=== PATIENT | male | born 1950 | race Caucasian/White ===

== ENCOUNTER 2016-12-28 14:32 | Inpatient (IN) | payer MEDICARE ==
[~2016-12-28] VITALS: Ht 177.8 cm; Wt 68.5 kg
[2016-12-28 14:54] VITALS: BP 125/87
[2016-12-28] MEDS ORDERED: MAG HYDROX/AL HYDROX/SIMETH 30 ML ORAL.SUSP PO PRN (15:00)
[2016-12-28] MEDS ORDERED: METHYL SALICYLATE/MENTHOL TOPICAL OINTMENT 29GM TUBE. TP PRN (15:00)
[2016-12-28] MEDS ORDERED: MAGNESIUM HYDROXIDE 2,400 MG/30 ML ORAL.SUSP. PO PRN (15:00)
[2016-12-28] MEDS ORDERED: THIA100T8 PO (15:50)
[2016-12-28] MEDS ORDERED: OLAN5TAB3 PO (15:50)
[2016-12-28] MEDS ORDERED: ZIPR20CA2 IM (15:50)
[2016-12-28] MEDS ORDERED: OLAN5TAB9 PO (15:50)
[2016-12-28] MEDS ORDERED: FOLI1TAB16 PO (15:50)
[2016-12-28] MEDS ORDERED: HYDR-2868 PO (15:50)
[2016-12-28] MEDS ORDERED: ASPI325T8 PO (15:50)
[2016-12-28 15:57] LABS: ALBUMIN 2.9 g/dL (3.4-5.0); ALBUMIN/GLOBULIN RATIO 0.7 (1.0-1.7); CREATININE 1.2 mg/dL (0.7-1.3); GFR 60.8; POTASSIUM 4.2 mmol/L (3.5-5.1); TOTAL BILIRUBIN 0.4 mg/dL (0.2-1.0); TOTAL PROTEIN 6.9 g/dL (6.4-8.2)
[2016-12-28] MEDS: NICOTINE 21MG PATCH. TD SCH (16:00)
[2016-12-28 16:07] LABS: BASO # 0.1 x10^3/uL (0.0-0.2); BASO % 1 % (0-3); EOS # 0.1 x10^3/uL (0.0-0.7); EOS % 1 % (0-3); HEMATOCRIT 43.7 % (39.0-53.0); LYMPH # 1.6 x10^3/uL (1.0-4.8); LYMPH % 18 % (24-48); MEAN CORPUSCULAR HEMOGLOBIN 34 pg (25-35); MEAN CORPUSCULAR HGB CONC 34 g/dL (31-37); MEAN CORPUSCULAR VOLUME 100 fL (79-100); MONO # 0.9 x10^3/uL (0.0-1.1); MONO % 11 % (0-9); NEUT # 6.1 x10^3uL (1.8-7.7); NEUT % 69 % (31-73); PLATELET COUNT 211 x10^3/uL (140-400); RED BLOOD COUNT 4.39 x10^6/uL (4.30-5.70); RED CELL DISTRIBUTION WIDTH 14.4 % (11.5-14.5); WHITE BLOOD COUNT 8.8 x10^3/uL (4.0-11.0)
[2016-12-28 16:37] VITALS: BP 126/92
[2016-12-28] MEDS ORDERED: hydrALAZINE 25 MG TABLET PO PRN (18:15)
[2016-12-28] MEDS ORDERED: ASPIRIN 325 MG TABLET PO PRN (18:30)
[2016-12-28] MEDS: OLANZapine 5 MG TABLET PO SCH (20:01)
--- NOTE | 2016-12-28 20:02 | PDOC ---
Exam Faustino Demential Exam: Faustino Note: Please also refer to the separate dictated note~for this date of service dictated separately.~Patient seen individually. Discussed the patient with Nursing staff reviewed the chart.~Reviewed interim history and current functioning. Reviewed vital signs,~Labs/ Radiology~and current medications noted below. Continue current treatment with the changes noted in the dictated addendum note Assessment: Vital Signs: Vital Signs Date Time Temp Pulse Resp B/P (MAP) Pulse Ox O2 Delivery O2 Flow Rate FiO2 12/28/16 16:37 98.2 120 18 126/92 (103) 97 Labs: Laboratory Tests Test 12/28/16 15:25 White Blood Count 8.8 x10^3/uL (4.0-11.0) Red Blood Count 4.39 x10^6/uL (4.30-5.70) Hemoglobin 15.0 g/dL (13.0-17.5) Hematocrit 43.7 % (39.0-53.0) Mean Corpuscular Volume 100 fL (79-100) Mean Corpuscular Hemoglobin 34 pg (25-35) Mean Corpuscular Hemoglobin Concent 34 g/dL (31-37) Red Cell Distribution Width 14.4 % (11.5-14.5) Platelet Count 211 x10^3/uL (140-400) Neutrophils (%) (Auto) 69 % (31-73) Lymphocytes (%) (Auto) 18 % (24-48) L Monocytes (%) (Auto) 11 % (0-9) H Eosinophils (%) (Auto) 1 % (0-3) Basophils (%) (Auto) 1 % (0-3) Neutrophils # (Auto) 6.1 x10^3uL (1.8-7.7) Lymphocytes # (Auto) 1.6 x10^3/uL (1.0-4.8) Monocytes # (Auto) 0.9 x10^3/uL (0.0-1.1) Eosinophils # (Auto) 0.1 x10^3/uL (0.0-0.7) Basophils # (Auto) 0.1 x10^3/uL (0.0-0.2) Sodium Level 140 mmol/L (136-145) Potassium Level 4.2 mmol/L (3.5-5.1) Chloride Level 104 mmol/L (98-107) Carbon Dioxide Level 26 mmol/L (21-32) Anion Gap 10 (6-14) Blood Urea Nitrogen 18 mg/dL (8-26) Creatinine 1.2 mg/dL (0.7-1.3) Estimated GFR (Cockcroft-Gault) 60.8 BUN/Creatinine Ratio 15 (6-20) Glucose Level 123 mg/dL (70-99) H Calcium Level 9.0 mg/dL (8.5-10.1) Magnesium Level 2.0 mg/dL (1.8-2.4) Total Bilirubin 0.4 mg/dL (0.2-1.0) Aspartate Amino Transferase (AST) 33 U/L (15-37) Alanine Aminotransferase (ALT) 35 U/L (16-63) Alkaline Phosphatase 95 U/L (46-116) Total Protein 6.9 g/dL (6.4-8.2) Albumin 2.9 g/dL (3.4-5.0) L Albumin/Globulin Ratio 0.7 (1.0-1.7) L Current Medications: Meds: Current Medications Acetaminophen (Tylenol) 650 mg PRN Q6HRS PRN PO PAIN / TEMP; Start 12/28/16 at 15:00 Multi-Ingredient Ointment (Analgesic [place]) 1 tessy PRN QID PRN TP MUSCLE PAIN; Start 12/28/16 at 15:00 Al Hydroxide/Mg Hydroxide (Mylanta Plus Xs) 15 ml PRN AFTMEALHC PRN PO DYSPEPSIA; Start 12/28/16 at 15:00 Magnesium Hydroxide (Milk Of Magnesia) 2,400 mg PRN QHS PRN PO CONSTIPATION; Start 12/28/16 at 15:00 Nicotine (Nicoderm Cq 21mg) 1 patch DAILY TD ; Start 12/28/16 at 16:00 Aspirin (Ebenezer Aspirin) 325 mg PRN DAILY PRN PO PAIN; Start 12/28/16 at 18:30 Folic Acid (Folic Acid) 1 mg DAILY PO ; Start 12/29/16 at 09:00 Hydralazine HCl (Apresoline) 25 mg PRN Q6HRS PRN PO hypertension; Start at 18:15 Olanzapine (ZyPREXA) 2.5 mg TID PO ; Start 8/16/17 at 21:00 Olanzapine (ZyPREXA) 5 mg PRN Q8HRS PRN PO ANXIETY / AGITATION; Start 12/28/16 at 18:15 Thiamine HCl (Vitamin B-1) 100 mg DAILY PO ; Start 12/29/16 at 09:00 Divalproex Sodium (Depakote Sprinkles) 125 mg BID@0900,1400 PO ; Start 12/29/16 at 09:00 Active Scripts Active Reported Aspirin 325 Mg Tablet 325 Mg PO PRN DAILY PRN Thiamine Hcl 100 Mg Tablet 100 Mg PO DAILY Zyprexa (Olanzapine) 5 Mg Tablet 5 Mg PO PRN Q8HRS PRN Olanzapine 5 Mg Tablet 2.5 Mg PO TID Hydralazine Hcl 25 Mg Tablet 25 Mg PO PRN Q6HRS PRN Folic Acid 1 Mg Tablet 1 Mg PO DAILY Diagnosis: Problems: (1) Dementia associated with alcoholism HEMAL PICKETT MD Dec 28, 2016 20:02
--- NOTE | 2016-12-29 00:18 | HP ---
ADMIT DATE: 12/28/2016 This notes covers elements not covered in my initial note of 12/28/2016. The patient was seen individually evening of 12/28/2016 for this evaluation. IDENTIFYING DATA: The patient is a 66-year-old male who is referred to us from [facility] where the patient has been an inpatient on the medical/surgical floor and diagnosed with Wernicke-Korsakoff syndrome. He had completed alcohol detoxification, remained extremely confused, delusional with marked confabulation, agitation, aggression. He has been coming at staff, threatening people, having visual hallucinations. He has had to be placed on one-on-one status and at one point had to be restrained on different occasions. He was evaluated by psychiatrist at [facility], Dr. Rashid who recommended inpatient psychiatric stabilization before consideration of transition to a nursing facility. CHIEF COMPLAINT: "I came here yesterday. We are going there together when we are, we shall come." The patient was able to accurately relate his admission, though in fact he was admitted earlier today and not yesterday, but after that much of his conversation was extremely disorganized, difficult to follow." HISTORY OF PRESENT ILLNESS: The patient has a history of dementia consequent to alcohol and Wernicke-Korsakoff syndrome. Details of his alcohol intake are unclear. He is unable to relate them and I have reviewed records from [facility]. After the patient completed his alcohol detox at [facility], he continued to be extremely psychotic with visual hallucinations, agitation, and physical aggression, was on one-on-one status. He had marked mood lability. Behaviors were deemed dangerous to himself and others, referred for inpatient psychiatric stabilization. 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 PAST MEDICAL HISTORY: Acute renal failure, encephalopathy, Wernicke-Korsakoff syndrome, delirium and diabetes mellitus, Accu-Cheks daily. DRUG ALLERGIES: Negative. CODE STATUS: Full. DIET: Regular, ambulates ad hussein. CURRENT PSYCHOTROPICS: Zyprexa 2.5 mg 3 times a day and p.r.n., Geodon 20 mg IM p.r.n. b.i.d. He is also on thiamine, folic acid supplements. FAMILY HISTORY: Noncontributory. SOCIAL HISTORY: Alcohol abuse history as noted above. No physical, sexual or elder abuse history is noted. Not known to be a perpetrator. MENTAL STATUS EXAMINATION: The patient was seen individually evening of 12/28/2016. He is oriented to himself. Speech is disorganized, thought processes are loose. Insight, judgment, recent and remote memory, attention, concentration, fund of knowledge poor, consistent with his diagnosis. LABORATORY DATA: Reviewed. IMPRESSION: Major neurocognitive disorder consequent to alcohol, possibly vascular with delusion, depression, behavioral disturbance, Wernicke-Korsakoff syndrome, anxiety disorder, unspecified; impulse control disorder, unspecified. Rest of diagnoses as above. PLAN: Admit to geropsychiatry unit at [facility]. I will see the patient daily individually from a psychiatric standpoint and medical followup per Dr. Amato/Dr. Hill. Continue the patient on thiamine, folic acid supplements, Zyprexa p.r.n. and scheduled. Stop the Geodon IM, start Depakote Sprinkles 125 mg at 9:00 a.m. and 2 p.m. Liver enzymes are unremarkable, check today. Check CBC, CMP, valproic acid level, ammonia level in 3 days. Make further adjustments as clinically indicated. May also need to add an SSRI agent. We will decide post baseline assessment. HEMAL PICKETT MD DR: JUAN PABLO/anthony JOB#: [id number] / [id number]
--- NOTE | 2016-12-29 00:36 | ACF ---
Admission Criteria Forms PSYCHIATRIC DISORDERS Clinical Indications for Inpatient Care (Place 'X' for any and all applicable criteria): Ongoing inpatient care may be needed for 1 or more of the following(1)(2)(3)(4)( 6)(7)(8): [ ]I. Danger to self or others not manageable at lower level of care. [ ]II. Grave disability (eg, inability to perform self care necessary at lower level of care) [ ]III. Agitation or inappropriate behavior interfering with care for primary condition (eg, attempting to discontinue lines or drains prematurely, unable to cooperate with respiratory care) [X]IV. Severe disability or disorder indicated by ALL of the following: [X]a) Severe behavioral health disorder-related symptoms or condition indicated by 1 or more of the following: [ ]i) Severe problem with cognition, memory, judgment, or impulse control [X]ii) Severe clinical manifestations (eg, hallucinations, delusions, other acute psychotic symptoms, evangelista, extreme agitation or anxiety) [X]b) Patient management at lower level of care is not feasible until acute intervention or modification is initiated. Extended stay beyond goal length of stay for the primary condition may be needed untilALLof the following are present(1)(2)(3)(4)(722)(23): [ ]a) Danger to self or others is absent or manageable at lower level of care [ ]b) Behavior crisis management, including physical or chemical restraints, is required and is not available at a lower level of care. [ ]c) Behavioral symptoms (e.g., agitation, somnolence, inappropriate behavior) are present, and are not manageable at a lower level of care. [ ]d) Patient cannot understand follow-up treatment and crisis plan. [ ]e) Provider and supports are sufficiently available at lower level of care. [ ]f) Patient can participate (e.g., verify absence of plan for harm) and is in needed of monitoring. The original [facility] [employer] content created by [facility] [employer] has been revised. The portions of the content which have been revised are identified through the use of italic text, and [employer]il[employer] has neither reviewed nor approved the modified material. All other unmodified content is copyright [facility] [employer]. Please see references footnoted in the original [facility] edition 2015 Admission Criteria Met?: Yes REGAN MOORE Dec 29, 2016 00:36
[2016-12-29] MEDS: OLANZapine 5 MG TABLET PO PRN (00:51)
[2016-12-29 01:09] LABS: T3 TOTAL 111 ng/dL (71-180); THYROXINE 6.2 ug/dL (4.5-12.0)
[2016-12-29 04:13] LABS: HEMOGLOBIN A1C 5.9 % (4.8-5.6)
[2016-12-29 05:48] VITALS: BP 129/84
[2016-12-29] MEDS: OLANZapine 5 MG TABLET PO SCH ×3 (07:56→19:48)
[2016-12-29] MEDS: NICOTINE 21MG PATCH. TD SCH (07:56)
[2016-12-29] MEDS: DIVALPROEX 125 MG CAP.SPRINK PO SCH ×2 (08:06→12:36)
[2016-12-29] MEDS: FOLIC ACID 1 MG TABLET PO SCH (08:06)
[2016-12-29] MEDS: THIAMINE 100 MG TABLET. PO SCH (08:06)
[2016-12-29 15:41] LABS: THYROID STIM HORMONE (TSH) 2.591 uIU/mL (0.358-3.740)
[2016-12-29 16:02] VITALS: BP 156/103
--- NOTE | 2016-12-29 19:47 | PDOC ---
Exam Faustino Demential Exam: Faustino Note: Please also refer to the separate dictated note~for this date of service dictated separately.~Patient seen individually. Discussed the patient with Nursing staff reviewed the chart.~Reviewed interim history and current functioning. Reviewed vital signs,~Labs/ Radiology~and current medications noted below. Continue current treatment with the changes noted in the dictated addendum note Assessment: Vital Signs: Vital Signs Date Time Temp Pulse Resp B/P (MAP) Pulse Ox O2 Delivery O2 Flow Rate FiO2 12/29/16 16:02 98.4 117 18 156/103 (120) 98 I&O Intake and Output 12/29/16 07:00 Intake Total 240 ml Balance 240 ml Intake Oral 240 ml Current Medications: Meds: Current Medications Acetaminophen (Tylenol) 650 mg PRN Q6HRS PRN PO PAIN / TEMP; Start 12/28/16 at 15:00 Multi-Ingredient Ointment (Analgesic [place]) 1 tessy PRN QID PRN TP MUSCLE PAIN; Start 12/28/16 at 15:00 Al Hydroxide/Mg Hydroxide (Mylanta Plus Xs) 15 ml PRN AFTMEALHC PRN PO DYSPEPSIA; Start 12/28/16 at 15:00 Magnesium Hydroxide (Milk Of Magnesia) 2,400 mg PRN QHS PRN PO CONSTIPATION; Start 12/28/16 at 15:00 Nicotine (Nicoderm Cq 21mg) 1 patch DAILY TD Last administered on 12/29/16 07: 56; Start 12/28/16 at 16:00 Aspirin (Ebenezer Aspirin) 325 mg PRN DAILY PRN PO PAIN; Start 12/28/16 at 18:30 Folic Acid (Folic Acid) 1 mg DAILY PO Last administered on 12/29/16 08:06; Start 12/29/16 at 09:00 Hydralazine HCl (Apresoline) 25 mg PRN Q6HRS PRN PO hypertension; Start at 18:15 Olanzapine (ZyPREXA) 2.5 mg TID PO Last administered on 12/29/16 12:36; Start 12/28/16 at 21:00 Olanzapine (ZyPREXA) 5 mg PRN Q8HRS PRN PO ANXIETY / AGITATION Last administered on 12/29/16 00:51; Start 12/28/16 at 18:15 Thiamine HCl (Vitamin B-1) 100 mg DAILY PO Last administered on 12/29/16 08:06 ; Start 12/29/16 at 09:00 Divalproex Sodium (Depakote Sprinkles) 125 mg BID@0900,1400 PO Last administered on 12/29/16 12:36; Start 12/29/16 at 09:00 Vitamin D (Vitamin D3) 50,000 unit WEEKLY PO ; Start 12/30/16 at 09:00 Active Scripts Active Reported Aspirin 325 Mg Tablet 325 Mg PO PRN DAILY PRN Thiamine Hcl 100 Mg Tablet 100 Mg PO DAILY Zyprexa (Olanzapine) 5 Mg Tablet 5 Mg PO PRN Q8HRS PRN Olanzapine 5 Mg Tablet 2.5 Mg PO TID Hydralazine Hcl 25 Mg Tablet 25 Mg PO PRN Q6HRS PRN Folic Acid 1 Mg Tablet 1 Mg PO DAILY Diagnosis: Problems: (1) Dementia associated with alcoholism (2) Anxiety disorder (3) Dementia associated with alcoholism with behavioral disturbance (4) Impulse control disorder (5) Wernicke-Korsakoff psychosis HEMAL PICKETT MD Dec 29, 2016 19:47
[2016-12-30] MEDS: OLANZapine 5 MG TABLET PO PRN (00:11)
--- NOTE | 2016-12-30 03:38 | PN ---
DATE: 12/29/2016 HISTORY OF PRESENT ILLNESS: The patient is a 66-year-old male patient who was referred to [facility] from [facility] where he was at, the patient has been an inpatient at the medical surgical floor. He was diagnosed with Wernicke-Korsakoff syndrome. He apparently had completed alcohol detoxification, remained extremely confused, delusional with marked fibrillation, agitation, and aggression. Has been threatening people. Having visual hallucination. He had to be placed on one-on-one status at one point in time, had to be restrained on different occasions. He was evaluated by psychiatrist at [facility] who recommended inpatient psychiatric stabilization before consideration of transition to a nursing facility and therefore, he was admitted to this facility. He is confabulating and it is very difficult to get any accurate information from him. According to our social science teacher, he has been living with his father, taking care of him who in 2010, has since been living in the same house and has also taken in a homeless person who apparently found him unresponsive on the floor and he called the ambulance and was taken to the [facility]. PAST MEDICAL HISTORY: Significant for acute renal failure, encephalopathy, Wernicke-Korsakoff syndrome, delirium, and diabetes. PAST PSYCHIATRIC HISTORY: Significant for alcohol abuse, dependence, withdrawal, Wernicke-Korsakoff syndrome, major neurocognitive disorder secondary to alcohol with delusion, depression, behavioral disturbances. ALLERGIES: He has no known drug allergies. MEDICATIONS: He is currently on the following medications: Aspirin 325 mg once a day, folic acid 1 mg daily, hydralazine 25 mg every 6 hours, olanzapine 2.5 mg 3 times a day, olanzapine 5 mg every 8 hours and thiamine 100 mg daily. FAMILY HISTORY: Noncontributory. SOCIAL HISTORY: He is , has no children of his own. Apparently used to be a smoker and a heavy drinker. REVIEW OF SYSTEMS: Unobtainable. The patient is very confused, agitated, confabulating. PHYSICAL EXAMINATION: GENERAL: When I examined him, he was somewhat pale, but not jaundiced, cyanosed. No thyromegaly. No jugular venous distension. No limb edema. VITAL SIGNS: His heart rate was 100, blood pressure was 129/84, temperature was 97.4, respiratory rate was 20, and oxygen saturation was 97%. HEAD, EYES, EARS, NOSE, THROAT: Showed normocephalic, atraumatic. NECK: Supple. HEART: Showed normal first and second heart sounds with no gallop, rub or murmur. CHEST: Clear to auscultation. No crepitation or rhonchi. ABDOMEN: Scaphoid, soft, nontender. No guarding or rigidity. No organomegaly. Hernial orifices intact. Bowel sounds normal. NEUROLOGIC: He is awake, alert, but very confused, agitated. All his cranial nerves are intact. EXTREMITIES: He moves extremities without difficulty, ambulates without assistance or assistive devices. LABORATORY DATA: Showed a white cell count of 8800, hemoglobin was 15, hematocrit 44, MCV 100, and platelet count of 211,000 with normal manual differential. Her chemistry showed a serum sodium 140, potassium 4.2, chloride 104, bicarbonate 26, anion gap of 10, BUN 18, creatinine 1.2, estimated GFR was 61 mL per minute. His glucose was 123. Hemoglobin A1c was 5.9%. His calcium was 9, magnesium was 2. Total bilirubin, AST, ALT, alkaline phosphatase were normal. His total protein was 6.9, albumin 2.9. His 25-hydroxy vitamin D was low at 12.8, total T4 was 6.2 and total T3 was 111. ASSESSMENT AND PLAN: In summary, this is a 66-year-old male patient who was admitted to this unit for inpatient psychiatric stabilization. He apparently was admitted to [facility] with diagnosis of Wernicke-Korsakoff syndrome where he completed alcohol detoxification; however, he remains extremely confused, delusional with marked fibrillation, agitation, aggression, has been threatening people, have visual hallucination and had to be placed on one-on-one status and at one point had to be restrained on different occasions. His vital signs continued to show some sinus tachycardia and his lab work is significant for the fact that his vitamin D is low at 12.8 although his total T4 and total T3 were within normal limits. He is not anemic. In fact, his hemoglobin is 15, hematocrit 44. My plan is to make sure to check his TSH and free T4, free T3 and check also prothrombin time and ammonia and replenish his vitamin D and decide on further management accordingly. Thank you, Dr. Mcdonough for allowing me to participate in the care of this patient. CHEKO TONEY MD DR: ENRICO/anthony JOB#: [id number] / [id number]
[2016-12-30] MEDS: NICOTINE 21MG PATCH. TD SCH (07:28)
[2016-12-30] MEDS: THIAMINE 100 MG TABLET. PO SCH (07:30)
[2016-12-30] MEDS: OLANZapine 5 MG TABLET PO SCH ×3 (07:31→19:36)
[2016-12-30] MEDS: FOLIC ACID 1 MG TABLET PO SCH (07:31)
[2016-12-30] MEDS: DIVALPROEX 125 MG CAP.SPRINK PO SCH ×2 (07:31→13:36)
[2016-12-30] MEDS: CHOLECALCIFEROL (VITAMIN D3) 50,000 UNIT CAPSULE PO SCH (07:34)
[2016-12-30 16:32] VITALS: BP 112/71
--- NOTE | 2016-12-30 19:52 | PDOC ---
Exam Faustino Demential Exam: Faustino Note: Please also refer to the separate dictated note~for this date of service dictated separately.~Patient seen individually. Discussed the patient with Nursing staff reviewed the chart.~Reviewed interim history and current functioning. Reviewed vital signs,~Labs/ Radiology~and current medications noted below. Continue current treatment with the changes noted in the dictated addendum note Assessment: Vital Signs: Vital Signs Date Time Temp Pulse Resp B/P (MAP) Pulse Ox O2 Delivery O2 Flow Rate FiO2 12/30/16 16:32 98.5 99 18 112/71 (85) 96 I&O Intake and Output 12/30/16 07:00 Intake Total 1320 ml Balance 1320 ml Intake Oral 1320 ml Labs: Laboratory Tests Test 12/30/16 06:19 12/30/16 08:11 Prothrombin Time 10.7 SEC (9.4-11.4) Prothrombin Time INR 1.0 (0.9-1.1) Glucose (Fingerstick) 94 mg/dL (70-99) Current Medications: Meds: Current Medications Acetaminophen (Tylenol) 650 mg PRN Q6HRS PRN PO PAIN / TEMP; Start 12/28/16 at 15:00 Multi-Ingredient Ointment (Analgesic [place]) 1 tessy PRN QID PRN TP MUSCLE PAIN; Start 12/28/16 at 15:00 Al Hydroxide/Mg Hydroxide (Mylanta Plus Xs) 15 ml PRN AFTMEALHC PRN PO DYSPEPSIA; Start 12/28/16 at 15:00 Magnesium Hydroxide (Milk Of Magnesia) 2,400 mg PRN QHS PRN PO CONSTIPATION; Start 12/28/16 at 15:00 Nicotine (Nicoderm Cq 21mg) 1 patch DAILY TD Last administered on 12/30/16 07: 28; Start 12/28/16 at 16:00 Aspirin (Ebenezer Aspirin) 325 mg PRN DAILY PRN PO PAIN; Start 12/28/16 at 18:30 Folic Acid (Folic Acid) 1 mg DAILY PO Last administered on 12/30/16 07:31; Start 12/29/16 at 09:00 Hydralazine HCl (Apresoline) 25 mg PRN Q6HRS PRN PO hypertension; Start at 18:15 Olanzapine (ZyPREXA) 2.5 mg TID PO Last administered on 12/30/16 19:36; Start 12/28/16 at 21:00 Olanzapine (ZyPREXA) 5 mg PRN Q8HRS PRN PO ANXIETY / AGITATION Last administered on 12/30/16 00:11; Start 12/28/16 at 18:15 Thiamine HCl (Vitamin B-1) 100 mg DAILY PO Last administered on 12/30/16 07:30 ; Start 12/29/16 at 09:00 Divalproex Sodium (Depakote Sprinkles) 125 mg BID@0900,1400 PO Last administered on 12/30/16 13:36; Start 12/29/16 at 09:00 Vitamin D (Vitamin D3) 50,000 unit WEEKLY PO Last administered on 12/30/16 07: 34; Start 12/30/16 at 09:00 Active Scripts Active Reported Aspirin 325 Mg Tablet 325 Mg PO PRN DAILY PRN Thiamine Hcl 100 Mg Tablet 100 Mg PO DAILY Zyprexa (Olanzapine) 5 Mg Tablet 5 Mg PO PRN Q8HRS PRN Olanzapine 5 Mg Tablet 2.5 Mg PO TID Hydralazine Hcl 25 Mg Tablet 25 Mg PO PRN Q6HRS PRN Folic Acid 1 Mg Tablet 1 Mg PO DAILY Diagnosis: Problems: (1) Dementia associated with alcoholism (2) Anxiety disorder (3) Dementia associated with alcoholism with behavioral disturbance (4) Impulse control disorder (5) Wernicke-Korsakoff psychosis HEMAL PICKETT MD Dec 30, 2016 19:52
--- NOTE | 2016-12-31 01:41 | PN ---
DATE: 12/29/2016 This late entry 12/29/2016 covers elements not covered in my initial note of 12/29/2016. SUBJECTIVE: The patient was staffed at a treatment team meeting morning of 12/29/2016 seen individually evening of 12/29/2016, slept 4 hours previous evening. He was found on the floor with a female patient about his age, somewhat inappropriate and social service staff intervened and he did not seem to like this. Speech is word salad. REVIEW OF SYSTEMS: No CV, , pulmonary, eye, ENT system symptoms on review. Reliability poor. MENTAL STATUS EXAM: Oriented to himself. Insight, judgment, recent and remote memory, attention, concentration, fund of knowledge poor, consistent with his diagnosis. He confabulates. Speech rapid. Loose associations. LABORATORY DATA: Reviewed. IMPRESSION: Wernicke-Korsakoff syndrome, major neurocognitive disorder, probably secondary to alcohol with delusion, depression, behavioral disturbance. Rest unchanged from before. PLAN: Reviewed current psychotropics, Depakote was initiated. Labs level are awaited. We will make further adjustments as clinically indicated. MAN Tanya PICKETT MD DR: JUAN PABLO/anthony JOB#: [id number] / [id number]
[2016-12-31 06:04] VITALS: BP 130/71
--- NOTE | 2016-12-31 07:08 | EKG ---
[address] [address] Test Date: 2016-12-28 Test Time: 14:58:51 Pat Name: ENZO GEORGES Department: Room: [address] [place] [address] Gender: Continuous [employer] Supervisor: : 1950 Requested By: HEMAL PICKETT Order Number: [id number] Reading MD: Darian Fregoso Measurements Intervals [place] Rate: P: NM: QRS: QRSD: T: QT: QTc: Interpretive Statements SR Electronically Signed On 01-09-2017 10:58:44 CDT by Darian Fregoso
[2016-12-31] MEDS: DIVALPROEX 125 MG CAP.SPRINK PO SCH ×2 (07:29→12:43)
[2016-12-31] MEDS: THIAMINE 100 MG TABLET. PO SCH (07:29)
[2016-12-31] MEDS: NICOTINE 21MG PATCH. TD SCH (07:29)
[2016-12-31] MEDS: OLANZapine 5 MG TABLET PO SCH ×3 (07:29→20:20)
[2016-12-31] MEDS: FOLIC ACID 1 MG TABLET PO SCH (07:29)
[2016-12-31 15:47] VITALS: BP 148/67
--- NOTE | 2016-12-31 18:58 | PN ---
DATE: 12/30/2016 PSYCHIATRIC PROGRESS NOTE This late entry, 12/30/2016, covers elements not covered in my initial note. SUBJECTIVE: I met with the patient the evening of 12/30/2016. He has been quite loud, disruptive previous evening, slept very poorly, kept his roommate up most night, yelling at night. Morning of 12/30/2016 he slept and slept through breakfast, woke up around 10:00 a.m., then has been confused, confabulating consistent with his diagnosis of Korsakoff psychosis. REVIEW OF SYSTEMS: No CV, , pulmonary, eye, ENT system symptoms on review as I met with him individually. Reliability poor. MENTAL STATUS EXAMINATION: Oriented to himself. Insight, judgment, recent and remote memory, attention, concentration, and fund of knowledge poor consistent with his diagnosis mentioned in my initial note. PLAN: Continue current psychotropics. As mentioned in my initial, Depakote has been initiated. Labs level to be checked on 01/01/2017. Adjust further as clinically indicated. MAN Tanya PICKETT MD DR: JUAN PABLO/anthony JOB#: [id number] / [id number]
--- NOTE | 2016-12-31 23:17 | PDOC ---
Exam Faustino Demential Exam: Faustino Note: Please also refer to the separate dictated note~for this date of service dictated separately.~Patient seen individually. Discussed the patient with Nursing staff reviewed the chart.~Reviewed interim history and current functioning. Reviewed vital signs,~Labs/ Radiology~and current medications noted below. Continue current treatment with the changes noted in the dictated addendum note Assessment: Vital Signs: Vital Signs Date Time Temp Pulse Resp B/P (MAP) Pulse Ox O2 Delivery O2 Flow Rate FiO2 12/31/16 15:47 99.2 122 22 148/67 (94) 97 12/31/16 06:04 Room Air I&O Intake and Output 12/31/16 07:00 Intake Total 960 ml Balance 960 ml Intake Oral 960 ml Labs: Laboratory Tests Test 12/31/16 07:23 Glucose (Fingerstick) 122 mg/dL (70-99) H Current Medications: Meds: Current Medications Acetaminophen (Tylenol) 650 mg PRN Q6HRS PRN PO PAIN / TEMP; Start 12/28/16 at 15:00 Multi-Ingredient Ointment (Analgesic [place]) 1 tessy PRN QID PRN TP MUSCLE PAIN; Start 12/28/16 at 15:00 Al Hydroxide/Mg Hydroxide (Mylanta Plus Xs) 15 ml PRN AFTMEALHC PRN PO DYSPEPSIA; Start 12/28/16 at 15:00 Magnesium Hydroxide (Milk Of Magnesia) 2,400 mg PRN QHS PRN PO CONSTIPATION; Start 12/28/16 at 15:00 Nicotine (Nicoderm Cq 21mg) 1 patch DAILY TD Last administered on 12/31/16 07: 29; Start 12/28/16 at 16:00 Aspirin (Ebenezer Aspirin) 325 mg PRN DAILY PRN PO PAIN; Start 12/28/16 at 18:30 Folic Acid (Folic Acid) 1 mg DAILY PO Last administered on 12/31/16 07:29; Start 12/29/16 at 09:00 Hydralazine HCl (Apresoline) 25 mg PRN Q6HRS PRN PO hypertension; Start at 18:15 Olanzapine (ZyPREXA) 2.5 mg TID PO Last administered on 12/31/16 20:20; Start 12/28/16 at 21:00 Olanzapine (ZyPREXA) 5 mg PRN Q8HRS PRN PO ANXIETY / AGITATION Last administered on 12/30/16 00:11; Start 12/28/16 at 18:15 Thiamine HCl (Vitamin B-1) 100 mg DAILY PO Last administered on 12/31/16 07:29 ; Start 12/29/16 at 09:00 Divalproex Sodium (Depakote Sprinkles) 125 mg BID@0900,1400 PO Last administered on 12/31/16 12:43; Start 12/29/16 at 09:00 Vitamin D (Vitamin D3) 50,000 unit WEEKLY PO Last administered on 12/30/16 07: 34; Start 12/30/16 at 09:00 Active Scripts Active Reported Aspirin 325 Mg Tablet 325 Mg PO PRN DAILY PRN Thiamine Hcl 100 Mg Tablet 100 Mg PO DAILY Zyprexa (Olanzapine) 5 Mg Tablet 5 Mg PO PRN Q8HRS PRN Olanzapine 5 Mg Tablet 2.5 Mg PO TID Hydralazine Hcl 25 Mg Tablet 25 Mg PO PRN Q6HRS PRN Folic Acid 1 Mg Tablet 1 Mg PO DAILY Diagnosis: Problems: (1) Dementia associated with alcoholism (2) Anxiety disorder (3) Dementia associated with alcoholism with behavioral disturbance (4) Impulse control disorder (5) Wernicke-Korsakoff psychosis HEMAL PICKETT MD Dec 31, 2016 23:17
[2017-01-01] MEDS: OLANZapine 5 MG TABLET PO PRN (02:09)
[2017-01-01 05:39] VITALS: BP 140/80
[2017-01-01] MEDS: NICOTINE 21MG PATCH. TD SCH (07:26)
[2017-01-01] MEDS: OLANZapine 5 MG TABLET PO SCH ×3 (07:26→20:59)
[2017-01-01] MEDS: DIVALPROEX 125 MG CAP.SPRINK PO SCH ×2 (07:26→13:11)
[2017-01-01] MEDS: THIAMINE 100 MG TABLET. PO SCH (07:26)
[2017-01-01] MEDS: FOLIC ACID 1 MG TABLET PO SCH (07:27)
[2017-01-01 08:05] LABS: BASO # 0.1 x10^3/uL (0.0-0.2); BASO % 1 % (0-3); EOS # 0.1 x10^3/uL (0.0-0.7); EOS % 2 % (0-3); HEMATOCRIT 42.4 % (39.0-53.0); HEMOGLOBIN 14.5 g/dL (13.0-17.5); LYMPH # 1.7 x10^3/uL (1.0-4.8); LYMPH % 24 % (24-48); MEAN CORPUSCULAR HEMOGLOBIN 34 pg (25-35); MEAN CORPUSCULAR HGB CONC 34 g/dL (31-37); MEAN CORPUSCULAR VOLUME 99 fL (79-100); MONO # 0.9 x10^3/uL (0.0-1.1); MONO % 13 % (0-9); NEUT # 4.3 x10^3uL (1.8-7.7); NEUT % 60 % (31-73); PLATELET COUNT 205 x10^3/uL (140-400); RED BLOOD COUNT 4.28 x10^6/uL (4.30-5.70); RED CELL DISTRIBUTION WIDTH 14.3 % (11.5-14.5); WHITE BLOOD COUNT 7.2 x10^3/uL (4.0-11.0)
[2017-01-01 08:12] LABS: ALBUMIN 2.9 g/dL (3.4-5.0); ALBUMIN/GLOBULIN RATIO 0.8 (1.0-1.7); ALK PHOS 72 U/L (46-116); ALT (SGPT) 25 U/L (16-63); ANION GAP 4 (6-14); AST (SGOT) 20 U/L (15-37); BLOOD UREA NITROGEN 9 mg/dL (8-26); BUN/CREATININE RATIO 8 (6-20); CALCIUM 9.1 mg/dL (8.5-10.1); CARBON DIOXIDE 30 mmol/L (21-32); CHLORIDE 108 mmol/L (98-107); CREATININE 1.1 mg/dL (0.7-1.3); GFR 67.2; GLUCOSE 99 mg/dL (70-99); POTASSIUM 4.1 mmol/L (3.5-5.1); SODIUM 142 mmol/L (136-145); TOTAL BILIRUBIN 0.7 mg/dL (0.2-1.0); TOTAL PROTEIN 6.5 g/dL (6.4-8.2)
[2017-01-01 08:13] LABS: VAL ACID 13 mcg/mL (50-100)
[2017-01-01 16:13] VITALS: BP 136/88
--- NOTE | 2017-01-01 19:47 | PDOC ---
Exam Faustino Demential Exam: Faustino Note: Please also refer to the separate dictated note~for this date of service dictated separately.~Patient seen individually. Discussed the patient with Nursing staff reviewed the chart.~Reviewed interim history and current functioning. Reviewed vital signs,~Labs/ Radiology~and current medications noted below. Continue current treatment with the changes noted in the dictated addendum note Assessment: Vital Signs: Vital Signs Date Time Temp Pulse Resp B/P (MAP) Pulse Ox O2 Delivery O2 Flow Rate FiO2 01/01/17 16:13 98.6 117 20 136/88 (104) 97 Room Air I&O Intake and Output 01/01/17 07:00 Intake Total 960 ml Balance 960 ml Intake Oral 960 ml Labs: Laboratory Tests Test 01/01/17 07:07 01/01/17 07:49 Glucose (Fingerstick) 104 mg/dL (70-99) H White Blood Count 7.2 x10^3/uL (4.0-11.0) Red Blood Count 4.28 x10^6/uL (4.30-5.70) L Hemoglobin 14.5 g/dL (13.0-17.5) Hematocrit 42.4 % (39.0-53.0) Mean Corpuscular Volume 99 fL (79-100) Mean Corpuscular Hemoglobin 34 pg (25-35) Mean Corpuscular Hemoglobin Concent 34 g/dL (31-37) Red Cell Distribution Width 14.3 % (11.5-14.5) Platelet Count 205 x10^3/uL (140-400) Neutrophils (%) (Auto) 60 % (31-73) Lymphocytes (%) (Auto) 24 % (24-48) Monocytes (%) (Auto) 13 % (0-9) H Eosinophils (%) (Auto) 2 % (0-3) Basophils (%) (Auto) 1 % (0-3) Neutrophils # (Auto) 4.3 x10^3uL (1.8-7.7) Lymphocytes # (Auto) 1.7 x10^3/uL (1.0-4.8) Monocytes # (Auto) 0.9 x10^3/uL (0.0-1.1) Eosinophils # (Auto) 0.1 x10^3/uL (0.0-0.7) Basophils # (Auto) 0.1 x10^3/uL (0.0-0.2) Sodium Level 142 mmol/L (136-145) Potassium Level 4.1 mmol/L (3.5-5.1) Chloride Level 108 mmol/L (98-107) H Carbon Dioxide Level 30 mmol/L (21-32) Anion Gap 4 (6-14) L Blood Urea Nitrogen 9 mg/dL (8-26) Creatinine 1.1 mg/dL (0.7-1.3) Estimated GFR (Cockcroft-Gault) 67.2 BUN/Creatinine Ratio 8 (6-20) Glucose Level 99 mg/dL (70-99) Calcium Level 9.1 mg/dL (8.5-10.1) Total Bilirubin 0.7 mg/dL (0.2-1.0) Aspartate Amino Transferase (AST) 20 U/L (15-37) Alanine Aminotransferase (ALT) 25 U/L (16-63) Alkaline Phosphatase 72 U/L (46-116) Ammonia < 10 mcmol/L (11-34) L Total Protein 6.5 g/dL (6.4-8.2) Albumin 2.9 g/dL (3.4-5.0) L Albumin/Globulin Ratio 0.8 (1.0-1.7) L Valproic Acid Level 13 mcg/mL (50-100) L Valproic Acid Last Dose Date 12/31/16 Valproic Acid Last Dose Time 1400 Current Medications: Meds: Current Medications Acetaminophen (Tylenol) 650 mg PRN Q6HRS PRN PO PAIN / TEMP; Start 12/28/16 at 15:00 Multi-Ingredient Ointment (Analgesic [place]) 1 tessy PRN QID PRN TP MUSCLE PAIN; Start 12/28/16 at 15:00 Al Hydroxide/Mg Hydroxide (Mylanta Plus Xs) 15 ml PRN AFTMEALHC PRN PO DYSPEPSIA; Start 12/28/16 at 15:00 Magnesium Hydroxide (Milk Of Magnesia) 2,400 mg PRN QHS PRN PO CONSTIPATION; Start 12/28/16 at 15:00 Nicotine (Nicoderm Cq 21mg) 1 patch DAILY TD Last administered on 01/01/17t 07: 26; Start 12/28/16 at 16:00 Aspirin (Ebenezer Aspirin) 325 mg PRN DAILY PRN PO PAIN; Start 12/28/16 at 18:30 Folic Acid (Folic Acid) 1 mg DAILY PO Last administered on 01/01/17 07:27; Start 12/29/16 at 09:00 Hydralazine HCl (Apresoline) 25 mg PRN Q6HRS PRN PO hypertension; Start at 18:15 Olanzapine (ZyPREXA) 2.5 mg TID PO Last administered on 01/01/17 13:11; Start 12/28/16 at 21:00 Olanzapine (ZyPREXA) 5 mg PRN Q8HRS PRN PO ANXIETY / AGITATION Last administered on 01/01/17 02:09; Start 12/28/16 at 18:15 Thiamine HCl (Vitamin B-1) 100 mg DAILY PO Last administered on 01/01/17 07:26 ; Start 12/29/16 at 09:00 Divalproex Sodium (Depakote Sprinkles) 125 mg BID@0900,1400 PO Last administered on 01/01/17 13:11; Start 12/29/16 at 09:00 Vitamin D (Vitamin D3) 50,000 unit WEEKLY PO Last administered on 12/30/16 07: 34; Start 12/30/16 at 09:00 Active Scripts Active Reported Aspirin 325 Mg Tablet 325 Mg PO PRN DAILY PRN Thiamine Hcl 100 Mg Tablet 100 Mg PO DAILY Zyprexa (Olanzapine) 5 Mg Tablet 5 Mg PO PRN Q8HRS PRN Olanzapine 5 Mg Tablet 2.5 Mg PO TID Hydralazine Hcl 25 Mg Tablet 25 Mg PO PRN Q6HRS PRN Folic Acid 1 Mg Tablet 1 Mg PO DAILY Diagnosis: Problems: (1) Dementia associated with alcoholism (2) Anxiety disorder (3) Dementia associated with alcoholism with behavioral disturbance (4) Impulse control disorder (5) Wernicke-Korsakoff psychosis HEMAL PICKETT MD Jan 01, 2017 19:47
--- NOTE | 2017-01-02 00:05 | PN ---
DATE: 12/31/2016 This late entry, 12/31/2016, covers elements not covered in my initial note. I met with the patient evening of 12/31/2016. Per nursing report, the patient had a fall at 1800, tripped over a peer's feet, no injury noted. He remains confused, confabulating in his thought processes, rapid in his speech, but cooperative. No CV, , pulmonary, eye, ENT system symptoms on review. Reliability poor. Per nursing report, he had a good night, good day. MENTAL STATUS EXAM: Oriented to himself. Insight, judgment, recent and remote memory, attention, concentration, fund of knowledge poor, consistent with his diagnosis. I addressed with him his diagnosis, prognosis. He is unable to conceptualize appropriate questions, but for a brief period of time it seemed he understood some of what I explained. LABORATORY DATA: Reviewed. IMPRESSION: Unchanged from initial note. PLAN: Continue current psychotropics. Reviewed drug interactions, risk/benefit ratio favors no further change as of now. Check valproic acid level, ammonia level, CBC, CMP 01/01/2017, adjust Depakote thereafter. MAN Tanya PICKETT MD DR: JUAN PABLO/anthony JOB#: [id number] / [id number]
[2017-01-02 06:12] VITALS: BP 113/70
[2017-01-02] MEDS: DIVALPROEX 125 MG CAP.SPRINK PO SCH ×2 (07:52→13:38)
[2017-01-02] MEDS: FOLIC ACID 1 MG TABLET PO SCH (07:53)
[2017-01-02] MEDS: OLANZapine 5 MG TABLET PO SCH ×3 (07:53→20:38)
[2017-01-02] MEDS: NICOTINE 21MG PATCH. TD SCH (07:54)
[2017-01-02] MEDS: THIAMINE 100 MG TABLET. PO SCH (07:54)
[2017-01-02 16:02] VITALS: BP 124/76
--- NOTE | 2017-01-02 19:46 | PDOC ---
Exam Faustino Demential Exam: Faustino Note: Please also refer to the separate dictated note~for this date of service dictated separately.~Patient seen individually. Discussed the patient with Nursing staff reviewed the chart.~Reviewed interim history and current functioning. Reviewed vital signs,~Labs/ Radiology~and current medications noted below. Continue current treatment with the changes noted in the dictated addendum note Assessment: Vital Signs: Vital Signs Date Time Temp Pulse Resp B/P (MAP) Pulse Ox O2 Delivery O2 Flow Rate FiO2 01/02/17 16:02 106 21 124/76 (92) 97 01/02/17 06:12 98.0 01/01/17 16:13 Room Air I&O Intake and Output 01/02/17 06:59 Intake Total 1940 ml Balance 1940 ml Intake Oral 1940 ml Labs: Laboratory Tests Test 01/02/17 07:50 Glucose (Fingerstick) 82 mg/dL (70-99) Current Medications: Meds: Current Medications Acetaminophen (Tylenol) 650 mg PRN Q6HRS PRN PO PAIN / TEMP; Start 12/28/16 at 15:00 Multi-Ingredient Ointment (Analgesic [place]) 1 tessy PRN QID PRN TP MUSCLE PAIN; Start 12/28/16 at 15:00 Al Hydroxide/Mg Hydroxide (Mylanta Plus Xs) 15 ml PRN AFTMEALHC PRN PO DYSPEPSIA; Start 12/28/16 at 15:00 Magnesium Hydroxide (Milk Of Magnesia) 2,400 mg PRN QHS PRN PO CONSTIPATION; Start 12/28/16 at 15:00 Nicotine (Nicoderm Cq 21mg) 1 patch DAILY TD Last administered on 01/02/17 07: 54; Start 12/28/16 at 16:00 Aspirin (Ebenezer Aspirin) 325 mg PRN DAILY PRN PO PAIN; Start 12/28/16 at 18:30 Folic Acid (Folic Acid) 1 mg DAILY PO Last administered on 01/02/17 07:53; Start 12/29/16 at 09:00 Hydralazine HCl (Apresoline) 25 mg PRN Q6HRS PRN PO hypertension; Start at 18:15 Olanzapine (ZyPREXA) 2.5 mg TID PO Last administered on 01/02/17 13:38; Start 12/28/16 at 21:00 Olanzapine (ZyPREXA) 5 mg PRN Q8HRS PRN PO ANXIETY / AGITATION Last administered on 01/01/17 02:09; Start 12/28/16 at 18:15 Thiamine HCl (Vitamin B-1) 100 mg DAILY PO Last administered on 01/02/17 07:54 ; Start 12/29/16 at 09:00 Divalproex Sodium (Depakote Sprinkles) 125 mg BID@0900,1400 PO Last administered on 01/02/17 13:38; Start 12/29/16 at 09:00; Stop 01/02/17 at 16:48 ; Status DC Vitamin D (Vitamin D3) 50,000 unit WEEKLY PO Last administered on 12/30/16 07: 34; Start 12/30/16 at 09:00 Divalproex Sodium (Depakote Sprinkles) 250 mg BID@0900,1400 PO ; Start 01/03/17 at 09:00 Trazodone HCl (Desyrel) 50 mg QHS PO ; Start 01/02/17 at 21:00 Trazodone HCl (Desyrel) 50 mg QHS PRN PO INSOMNIA; Start 01/02/17 at 16:45 Active Scripts Active Reported Aspirin 325 Mg Tablet 325 Mg PO PRN DAILY PRN Thiamine Hcl 100 Mg Tablet 100 Mg PO DAILY Zyprexa (Olanzapine) 5 Mg Tablet 5 Mg PO PRN Q8HRS PRN Olanzapine 5 Mg Tablet 2.5 Mg PO TID Hydralazine Hcl 25 Mg Tablet 25 Mg PO PRN Q6HRS PRN Folic Acid 1 Mg Tablet 1 Mg PO DAILY Diagnosis: Problems: (1) Dementia associated with alcoholism (2) Anxiety disorder (3) Dementia associated with alcoholism with behavioral disturbance (4) Impulse control disorder (5) Wernicke-Korsakoff psychosis EHMAL PICKETT MD Jan 02, 2017 19:46
[2017-01-02] MEDS: traZODone 50 MG TABLET. PO SCH (21:56)
--- NOTE | 2017-01-03 00:02 | PN ---
DATE: 01/01/2017 This late entry 01/01/2017 covers elements not covered in my initial note. SUBJECTIVE: Overall, the patient remains confused, has been wandering, confabulating as part of his Wernicke-Korsakoff. Compliant with medications. Slept poorly previous evening. We will see how he do for another night and then if there is still a problem, we will add trazodone p.r.n. REVIEW OF SYSTEMS: No CV, , pulmonary, eye, ENT system symptoms on review. Reliability poor. MENTAL STATUS EXAM: Oriented to himself. Insight, judgment, recent and remote memory, attention, concentration, fund of knowledge poor, consistent with his diagnosis. IMPRESSION: Unchanged from initial note. PLAN: Reviewed drug interactions, risk/benefit ratio favors no further change. Valproic acid level is 13. We will increase the Depakote to 250 mg b.i.d., starting 01/02/2017. Check CBC, CMP, valproic acid level in 3 days thereafter. Adjust further as clinically indicated. MAN Tanya PICKETT MD DR: JUAN PABLO/anthony JOB#: [id number] / [id number]
[2017-01-03 05:50] VITALS: BP 96/57
[2017-01-03] MEDS: THIAMINE 100 MG TABLET. PO SCH (08:31)
[2017-01-03] MEDS: NICOTINE 21MG PATCH. TD SCH (08:31)
[2017-01-03] MEDS: FOLIC ACID 1 MG TABLET PO SCH (08:32)
[2017-01-03] MEDS: OLANZapine 5 MG TABLET PO SCH ×3 (08:32→20:03)
[2017-01-03] MEDS: DIVALPROEX 125 MG CAP.SPRINK PO SCH ×2 (08:37→13:30)
[2017-01-03 16:03] VITALS: BP 138/87
--- NOTE | 2017-01-03 18:43 | PDOC ---
Exam Faustino Demential Exam: Faustino Note: Please also refer to the separate dictated note~for this date of service dictated separately.~Patient seen individually. Discussed the patient with Nursing staff reviewed the chart.~Reviewed interim history and current functioning. Reviewed vital signs,~Labs/ Radiology~and current medications noted below. Continue current treatment with the changes noted in the dictated addendum note Assessment: Vital Signs: Vital Signs Date Time Temp Pulse Resp B/P (MAP) Pulse Ox O2 Delivery O2 Flow Rate FiO2 01/03/17 16:03 97.7 107 18 138/87 (104) 97 01/01/17 16:13 Room Air I&O Intake and Output 01/03/17 07:00 Intake Total 760 ml Balance 760 ml Intake Oral 760 ml Labs: Laboratory Tests Test 01/03/17 07:22 Glucose (Fingerstick) 96 mg/dL (70-99) Current Medications: Meds: Current Medications Acetaminophen (Tylenol) 650 mg PRN Q6HRS PRN PO PAIN / TEMP; Start 12/28/16 at 15:00 Multi-Ingredient Ointment (Analgesic [place]) 1 tessy PRN QID PRN TP MUSCLE PAIN; Start 12/28/16 at 15:00 Al Hydroxide/Mg Hydroxide (Mylanta Plus Xs) 15 ml PRN AFTMEALHC PRN PO DYSPEPSIA; Start 12/28/16 at 15:00 Magnesium Hydroxide (Milk Of Magnesia) 2,400 mg PRN QHS PRN PO CONSTIPATION; Start 12/28/16 at 15:00 Nicotine (Nicoderm Cq 21mg) 1 patch DAILY TD Last administered on 01/03/17 08: 31; Start 12/28/16 at 16:00 Aspirin (Ebenezer Aspirin) 325 mg PRN DAILY PRN PO PAIN; Start 12/28/16 at 18:30 Folic Acid (Folic Acid) 1 mg DAILY PO Last administered on 01/03/17 08:32; Start 12/29/16 at 09:00 Hydralazine HCl (Apresoline) 25 mg PRN Q6HRS PRN PO hypertension; Start at 18:15 Olanzapine (ZyPREXA) 2.5 mg TID PO Last administered on 01/03/17 13:30; Start 12/28/16 at 21:00 Olanzapine (ZyPREXA) 5 mg PRN Q8HRS PRN PO ANXIETY / AGITATION Last administered on 01/01/17 02:09; Start 12/28/16 at 18:15 Thiamine HCl (Vitamin B-1) 100 mg DAILY PO Last administered on 01/03/17 08:31 ; Start 12/29/16 at 09:00 Divalproex Sodium (Depakote Sprinkles) 125 mg BID@0900,1400 PO Last administered on 01/02/17 13:38; Start 12/29/16 at 09:00; Stop 01/02/17 at 16:48 ; Status DC Vitamin D (Vitamin D3) 50,000 unit WEEKLY PO Last administered on 12/30/16 07: 34; Start 12/30/16 at 09:00 Divalproex Sodium (Depakote Sprinkles) 250 mg BID@0900,1400 PO Last administered on 01/03/17 13:30; Start 01/03/17 at 09:00 Trazodone HCl (Desyrel) 50 mg QHS PO Last administered on 01/02/17 21:56; Start 01/02/17 at 21:00 Trazodone HCl (Desyrel) 50 mg QHS PRN PO INSOMNIA; Start 01/02/17 at 16:45 Active Scripts Active Reported Aspirin 325 Mg Tablet 325 Mg PO PRN DAILY PRN Thiamine Hcl 100 Mg Tablet 100 Mg PO DAILY Zyprexa (Olanzapine) 5 Mg Tablet 5 Mg PO PRN Q8HRS PRN Olanzapine 5 Mg Tablet 2.5 Mg PO TID Hydralazine Hcl 25 Mg Tablet 25 Mg PO PRN Q6HRS PRN Folic Acid 1 Mg Tablet 1 Mg PO DAILY Diagnosis: Problems: (1) Wernicke-Korsakoff psychosis (2) Impulse control disorder (3) Dementia associated with alcoholism with behavioral disturbance (4) Anxiety disorder (5) Dementia associated with alcoholism HEMAL PICKETT MD Jan 03, 2017 18:43
[2017-01-03] MEDS: traZODone 50 MG TABLET. PO SCH (20:03)
--- NOTE | 2017-01-04 03:12 | PN ---
DATE: 01/02/2017 This late entry 01/02/2017 cover elements not covered in my initial note. The patient seen individually evening of 01/02/2017. He remains cooperative, compliant, confabulating, disorganized, confused per nursing report. REVIEW OF SYSTEMS: No CV, , pulmonary, eye, ENT system symptoms on review. Reliability poor. MENTAL STATUS EXAM: Oriented to himself. Insight, judgment, recent and remote memory, attention, concentration, fund of knowledge poor, consistent with his diagnosis mentioned in my initial note. LABORATORY DATA: Reviewed. PLAN: Continue current psychotropics. Depakote was increased since level on the lower dosage was subtherapeutic at 13. Trazodone has been added. Reviewed drug interactions. Risk benefit ratio favors no further change as of now. MAN Tanya PICKETT MD DR: JUAN PABLO/anthony JOB#: [id number] / [id number]
[2017-01-04 06:21] VITALS: BP 140/88
[2017-01-04] MEDS: DIVALPROEX 125 MG CAP.SPRINK PO SCH ×2 (09:04→13:11)
[2017-01-04] MEDS: NICOTINE 21MG PATCH. TD SCH (09:04)
[2017-01-04] MEDS: FOLIC ACID 1 MG TABLET PO SCH (09:04)
[2017-01-04] MEDS: THIAMINE 100 MG TABLET. PO SCH (09:04)
[2017-01-04] MEDS: OLANZapine 5 MG TABLET PO SCH ×3 (09:04→20:00)
[2017-01-04 16:23] VITALS: BP 133/82
--- NOTE | 2017-01-04 18:27 | PDOC ---
Exam Faustino Demential Exam: Faustino Note: Please also refer to the separate dictated note~for this date of service dictated separately.~Patient seen individually. Discussed the patient with Nursing staff reviewed the chart.~Reviewed interim history and current functioning. Reviewed vital signs,~Labs/ Radiology~and current medications noted below. Continue current treatment with the changes noted in the dictated addendum note Assessment: Vital Signs: Vital Signs Date Time Temp Pulse Resp B/P (MAP) Pulse Ox O2 Delivery O2 Flow Rate FiO2 01/04/17 16:23 98.0 103 22 133/82 (99) 97 01/01/17 16:13 Room Air I&O Intake and Output 01/04/17 07:00 Intake Total 1200 ml Balance 1200 ml Intake Oral 1200 ml Labs: Laboratory Tests Test 01/04/17 07:32 Glucose (Fingerstick) 92 mg/dL (70-99) Current Medications: Meds: Current Medications Acetaminophen (Tylenol) 650 mg PRN Q6HRS PRN PO PAIN / TEMP; Start 12/28/16 at 15:00 Multi-Ingredient Ointment (Analgesic [place]) 1 tessy PRN QID PRN TP MUSCLE PAIN; Start 12/28/16 at 15:00 Al Hydroxide/Mg Hydroxide (Mylanta Plus Xs) 15 ml PRN AFTMEALHC PRN PO DYSPEPSIA; Start 12/28/16 at 15:00 Magnesium Hydroxide (Milk Of Magnesia) 2,400 mg PRN QHS PRN PO CONSTIPATION; Start 12/28/16 at 15:00 Nicotine (Nicoderm Cq 21mg) 1 patch DAILY TD Last administered on 01/04/17 09: 04; Start 12/28/16 at 16:00 Aspirin (Ebenezer Aspirin) 325 mg PRN DAILY PRN PO PAIN; Start 12/28/16 at 18:30 Folic Acid (Folic Acid) 1 mg DAILY PO Last administered on 01/04/17 09:04; Start 12/29/16 at 09:00 Hydralazine HCl (Apresoline) 25 mg PRN Q6HRS PRN PO hypertension; Start at 18:15 Olanzapine (ZyPREXA) 2.5 mg TID PO Last administered on 01/04/17 13:11; Start 12/28/16 at 21:00 Olanzapine (ZyPREXA) 5 mg PRN Q8HRS PRN PO ANXIETY / AGITATION Last administered on 01/01/17 02:09; Start 12/28/16 at 18:15 Thiamine HCl (Vitamin B-1) 100 mg DAILY PO Last administered on 01/04/17 09:04 ; Start 12/29/16 at 09:00 Divalproex Sodium (Depakote Sprinkles) 125 mg BID@0900,1400 PO Last administered on 01/02/17 13:38; Start 12/29/16 at 09:00; Stop 01/02/17 at 16:48 ; Status DC Vitamin D (Vitamin D3) 50,000 unit WEEKLY PO Last administered on 12/30/16 07: 34; Start 12/30/16 at 09:00 Divalproex Sodium (Depakote Sprinkles) 250 mg BID@0900,1400 PO Last administered on 01/04/17 13:11; Start 01/03/17 at 09:00 Trazodone HCl (Desyrel) 50 mg QHS PO Last administered on 01/03/17 20:03; Start 01/02/17 at 21:00 Trazodone HCl (Desyrel) 50 mg QHS PRN PO INSOMNIA; Start 01/02/17 at 16:45 Active Scripts Active Reported Aspirin 325 Mg Tablet 325 Mg PO PRN DAILY PRN Thiamine Hcl 100 Mg Tablet 100 Mg PO DAILY Zyprexa (Olanzapine) 5 Mg Tablet 5 Mg PO PRN Q8HRS PRN Olanzapine 5 Mg Tablet 2.5 Mg PO TID Hydralazine Hcl 25 Mg Tablet 25 Mg PO PRN Q6HRS PRN Folic Acid 1 Mg Tablet 1 Mg PO DAILY Diagnosis: Problems: (1) Wernicke-Korsakoff psychosis (2) Impulse control disorder (3) Dementia associated with alcoholism with behavioral disturbance (4) Anxiety disorder (5) Dementia associated with alcoholism HEMAL PICKETT MD Jan 04, 2017 18:27
[2017-01-04] MEDS: traZODone 50 MG TABLET. PO SCH (20:00)
--- NOTE | 2017-01-05 02:09 | PN ---
DATE: 01/03/2017 I met with the patient on evening of 01/03. Per nursing report, he remains confused, wandering into other patient's rooms, attended the exercise groups, confined with his medications, seemed a little more coherent, cogent as I met to them in the evening of 01/03. No CV, , pulmonary, ENT system symptoms on review, reliability poor. MENTAL STATUS EXAMINATION: Oriented to himself. Insight and judgment, recent and remote memory, attention, concentration, fund of knowledge poor, consistent with his diagnosis mentioned in my initial note plan. Continue current psychotropics. Review drug interactions carefully. Risk and benefit ratio fair with no further change. LABORATORY DATA: Levels on the Depakote will be repeated and then we will adjust to reach therapeutic level. MAN Tanya PICKETT MD DR: JUAN PABLO/anthony JOB#: [id number] / [id number]
[2017-01-05 06:12] VITALS: BP 147/93
[2017-01-05] MEDS: OLANZapine 5 MG TABLET PO PRN (06:14)
[2017-01-05] MEDS: FOLIC ACID 1 MG TABLET PO SCH (09:26)
[2017-01-05] MEDS: DIVALPROEX 125 MG CAP.SPRINK PO SCH ×2 (09:26→14:29)
[2017-01-05] MEDS: OLANZapine 5 MG TABLET PO SCH ×3 (09:27→19:31)
[2017-01-05] MEDS: NICOTINE 21MG PATCH. TD SCH (09:27)
[2017-01-05] MEDS: THIAMINE 100 MG TABLET. PO SCH (09:27)
[2017-01-05 16:08] VITALS: BP 119/79
[2017-01-05] MEDS: traZODone 50 MG TABLET. PO SCH (19:32)
--- NOTE | 2017-01-05 20:35 | PDOC ---
Exam Faustino Demential Exam: Faustino Note: Please also refer to the separate dictated note~for this date of service dictated separately.~Patient seen individually. Discussed the patient with Nursing staff reviewed the chart.~Reviewed interim history and current functioning. Reviewed vital signs,~Labs/ Radiology~and current medications noted below. Continue current treatment with the changes noted in the dictated addendum note Assessment: Vital Signs: Vital Signs Date Time Temp Pulse Resp B/P (MAP) Pulse Ox O2 Delivery O2 Flow Rate FiO2 01/05/17 16:08 98.0 106 18 119/79 (92) 98 01/01/17 16:13 Room Air I&O Intake and Output 01/05/17 07:00 Intake Total 1260 ml Balance 1260 ml Intake Oral 1260 ml Labs: Laboratory Tests Test 01/05/17 07:55 Glucose (Fingerstick) 93 mg/dL (70-99) Current Medications: Meds: Current Medications Acetaminophen (Tylenol) 650 mg PRN Q6HRS PRN PO PAIN / TEMP; Start 12/28/16 at 15:00 Multi-Ingredient Ointment (Analgesic [place]) 1 tessy PRN QID PRN TP MUSCLE PAIN; Start 12/28/16 at 15:00 Al Hydroxide/Mg Hydroxide (Mylanta Plus Xs) 15 ml PRN AFTMEALHC PRN PO DYSPEPSIA; Start 12/28/16 at 15:00 Magnesium Hydroxide (Milk Of Magnesia) 2,400 mg PRN QHS PRN PO CONSTIPATION; Start 12/28/16 at 15:00 Nicotine (Nicoderm Cq 21mg) 1 patch DAILY TD Last administered on 01/05/17 09: 27; Start 12/28/16 at 16:00 Aspirin (Ebenezer Aspirin) 325 mg PRN DAILY PRN PO PAIN; Start 12/28/16 at 18:30 Folic Acid (Folic Acid) 1 mg DAILY PO Last administered on 01/05/17 09:26; Start 12/29/16 at 09:00 Hydralazine HCl (Apresoline) 25 mg PRN Q6HRS PRN PO hypertension; Start at 18:15 Olanzapine (ZyPREXA) 2.5 mg TID PO Last administered on 01/05/17 19:31; Start 12/28/16 at 21:00 Olanzapine (ZyPREXA) 5 mg PRN Q8HRS PRN PO ANXIETY / AGITATION Last administered on 01/05/17 06:14; Start 12/28/16 at 18:15 Thiamine HCl (Vitamin B-1) 100 mg DAILY PO Last administered on 01/05/17 09:27 ; Start 12/29/16 at 09:00 Divalproex Sodium (Depakote Sprinkles) 125 mg BID@0900,1400 PO Last administered on 01/02/17 13:38; Start 12/29/16 at 09:00; Stop 01/02/17 at 16:48 ; Status DC Vitamin D (Vitamin D3) 50,000 unit WEEKLY PO Last administered on 12/30/16 07: 34; Start 12/30/16 at 09:00 Divalproex Sodium (Depakote Sprinkles) 250 mg BID@0900,1400 PO Last administered on 01/05/17 14:29; Start 01/03/17 at 09:00 Trazodone HCl (Desyrel) 50 mg QHS PO Last administered on 01/05/17 19:32; Start 01/02/17 at 21:00 Trazodone HCl (Desyrel) 50 mg QHS PRN PO INSOMNIA; Start 01/02/17 at 16:45 Active Scripts Active Reported Aspirin 325 Mg Tablet 325 Mg PO PRN DAILY PRN Thiamine Hcl 100 Mg Tablet 100 Mg PO DAILY Zyprexa (Olanzapine) 5 Mg Tablet 5 Mg PO PRN Q8HRS PRN Olanzapine 5 Mg Tablet 2.5 Mg PO TID Hydralazine Hcl 25 Mg Tablet 25 Mg PO PRN Q6HRS PRN Folic Acid 1 Mg Tablet 1 Mg PO DAILY Diagnosis: Problems: (1) Dementia associated with alcoholism (2) Anxiety disorder (3) Dementia associated with alcoholism with behavioral disturbance (4) Impulse control disorder (5) Wernicke-Korsakoff psychosis HEMAL PICKETT MD Jan 05, 2017 20:35
--- NOTE | 2017-01-06 00:31 | PN ---
DATE: 01/04/2017 This late entry 01/04/2017 covers elements not covered in my initial note of 01/04/2017. SUBJECTIVE: The patient was seen individually evening of 01/04/2017. The patient remains confused, but is calm, cooperative, wonders into the room of other patients. Believes [place] is in [place], unsteadiness of gait, but this is overall better than before. He bangs his arms in alarcon and other things at times due to his discoordination and has some bruising on the arms. REVIEW OF SYSTEMS: No CV, , pulmonary, eye, ENT system symptoms on review. Reliability poor. MENTAL STATUS EXAM: Oriented to himself. Insight, judgment, recent and remote memory, attention, concentration, fund of knowledge poor, consistent with his diagnosis. Confabulation was quite evident during my individual visit with him. LABORATORY DATA: Reviewed. IMPRESSION: Unchanged from initial note. Continue current psychotropics mentioned in the initial note. Review drug interactions, risk benefit ratio, will make further changes depending on his progress. Depakote was increased; repeat level and then adjust further. MAN Tanya PICKETT MD DR: JUAN PABLO/anthony JOB#: [id number] / [id number]
--- NOTE | 2017-01-06 01:24 | PN ---
DATE: 01/04/2017 SUBJECTIVE: The patient was seen individually evening of 01/04/2017. This note covers elements not covered in my initial note of 01/04/2017. Per nursing report, the patient has been calm, cooperative, confused, confabulating in his conversation, believed he in [place], unsteady in his gait, bangs his arms into alarcon, has bruising due to his discoordination. REVIEW OF SYSTEMS: No CV, , pulmonary, eye, ENT system symptoms on review. Reliability poor. MENTAL STATUS EXAM: Oriented to himself. Insight, judgment, recent and remote memory, attention, concentration, fund of knowledge poor, consistent with his diagnosis mentioned in my initial note. PLAN: Continue current psychotropics. Depakote was increased. Repeat labs level, adjust further as clinically indicated. Reviewed drug interactions, risk/benefit ratio favors no further change. MAN Tanya PICKETT MD DR: JUAN PABLO/anthony JOB#: [id number] / [id number]
[2017-01-06 05:56] VITALS: BP 155/72
[2017-01-06 08:09] LABS: BASO # 0.1 x10^3/uL (0.0-0.2); BASO % 1 % (0-3); EOS # 0.2 x10^3/uL (0.0-0.7); EOS % 2 % (0-3); HEMATOCRIT 37.4 % (39.0-53.0); HEMOGLOBIN 12.4 g/dL (13.0-17.5); LYMPH # 1.8 x10^3/uL (1.0-4.8); LYMPH % 25 % (24-48); MEAN CORPUSCULAR HEMOGLOBIN 33 pg (25-35); MEAN CORPUSCULAR HGB CONC 33 g/dL (31-37); MEAN CORPUSCULAR VOLUME 100 fL (79-100); MONO % 14 % (0-9); NEUT # 4.1 x10^3uL (1.8-7.7); NEUT % 58 % (31-73); PLATELET COUNT 206 x10^3/uL (140-400); RED BLOOD COUNT 3.75 x10^6/uL (4.30-5.70); RED CELL DISTRIBUTION WIDTH 14.5 % (11.5-14.5); WHITE BLOOD COUNT 7.2 x10^3/uL (4.0-11.0)
[2017-01-06 08:11] LABS: ALBUMIN 2.5 g/dL (3.4-5.0); ALBUMIN/GLOBULIN RATIO 0.8 (1.0-1.7); ALK PHOS 63 U/L (46-116); ALT (SGPT) 18 U/L (16-63); ANION GAP 4 (6-14); AST (SGOT) 15 U/L (15-37); BLOOD UREA NITROGEN 7 mg/dL (8-26); BUN/CREATININE RATIO 8 (6-20); CALCIUM 8.8 mg/dL (8.5-10.1); CARBON DIOXIDE 30 mmol/L (21-32); CHLORIDE 109 mmol/L (98-107); CREATININE 0.9 mg/dL (0.7-1.3); GFR 84.7; GLUCOSE 89 mg/dL (70-99); SODIUM 143 mmol/L (136-145); TOTAL BILIRUBIN 0.3 mg/dL (0.2-1.0); TOTAL PROTEIN 5.7 g/dL (6.4-8.2)
[2017-01-06 08:14] LABS: VAL ACID 18 mcg/mL (50-100)
[2017-01-06] MEDS: CHOLECALCIFEROL (VITAMIN D3) 50,000 UNIT CAPSULE PO SCH (09:00)
--- NOTE | 2017-01-06 10:08 | PDOC ---
Exam Faustino Demential Exam: Faustino Note: Please also refer to the separate dictated note~for this date of service dictated separately.~Patient seen individually. Discussed the patient with Nursing staff reviewed the chart.~Reviewed interim history and current functioning. Reviewed vital signs,~Labs/ Radiology~and current medications noted below. Continue current treatment with the changes noted in the dictated addendum note Assessment: Vital Signs: Vital Signs Date Time Temp Pulse Resp B/P (MAP) Pulse Ox O2 Delivery O2 Flow Rate FiO2 01/06/17 05:56 01/01/17 16:13 Room Air I&O Intake and Output 01/06/17 07:00 Intake Total 1560 ml Balance 1560 ml Intake Oral 1560 ml Labs: Laboratory Tests Test 01/06/17 06:57 White Blood Count 7.2 x10^3/uL (4.0-11.0) Red Blood Count 3.75 x10^6/uL (4.30-5.70) L Hemoglobin 12.4 g/dL (13.0-17.5) L Hematocrit 37.4 % (39.0-53.0) L Mean Corpuscular Volume 100 fL (79-100) Mean Corpuscular Hemoglobin 33 pg (25-35) Mean Corpuscular Hemoglobin Concent 33 g/dL (31-37) Red Cell Distribution Width 14.5 % (11.5-14.5) Platelet Count 206 x10^3/uL (140-400) Neutrophils (%) (Auto) 58 % (31-73) Lymphocytes (%) (Auto) 25 % (24-48) Monocytes (%) (Auto) 14 % (0-9) H Eosinophils (%) (Auto) 2 % (0-3) Basophils (%) (Auto) 1 % (0-3) Neutrophils # (Auto) 4.1 x10^3uL (1.8-7.7) Lymphocytes # (Auto) 1.8 x10^3/uL (1.0-4.8) Monocytes # (Auto) 1.0 x10^3/uL (0.0-1.1) Eosinophils # (Auto) 0.2 x10^3/uL (0.0-0.7) Basophils # (Auto) 0.1 x10^3/uL (0.0-0.2) Sodium Level 143 mmol/L (136-145) Potassium Level 4.0 mmol/L (3.5-5.1) Chloride Level 109 mmol/L (98-107) H Carbon Dioxide Level 30 mmol/L (21-32) Anion Gap 4 (6-14) L Blood Urea Nitrogen 7 mg/dL (8-26) L Creatinine 0.9 mg/dL (0.7-1.3) Estimated GFR (Cockcroft-Gault) 84.7 BUN/Creatinine Ratio 8 (6-20) Glucose Level 89 mg/dL (70-99) Calcium Level 8.8 mg/dL (8.5-10.1) Total Bilirubin 0.3 mg/dL (0.2-1.0) Aspartate Amino Transferase (AST) 15 U/L (15-37) Alanine Aminotransferase (ALT) 18 U/L (16-63) Alkaline Phosphatase 63 U/L (46-116) Total Protein 5.7 g/dL (6.4-8.2) L Albumin 2.5 g/dL (3.4-5.0) L Albumin/Globulin Ratio 0.8 (1.0-1.7) L Valproic Acid Level 18 mcg/mL (50-100) L Valproic Acid Last Dose Date 01/05/2017 Valproic Acid Last Dose Time 1400 Current Medications: Meds: Current Medications Acetaminophen (Tylenol) 650 mg PRN Q6HRS PRN PO PAIN / TEMP; Start 12/28/16 at 15:00 Multi-Ingredient Ointment (Analgesic [place]) 1 tessy PRN QID PRN TP MUSCLE PAIN; Start 12/28/16 at 15:00 Al Hydroxide/Mg Hydroxide (Mylanta Plus Xs) 15 ml PRN AFTMEALHC PRN PO DYSPEPSIA; Start 12/28/16 at 15:00 Magnesium Hydroxide (Milk Of Magnesia) 2,400 mg PRN QHS PRN PO CONSTIPATION; Start 12/28/16 at 15:00 Nicotine (Nicoderm Cq 21mg) 1 patch DAILY TD Last administered on 01/05/17 09: 27; Start 12/28/16 at 16:00 Aspirin (Ebenezer Aspirin) 325 mg PRN DAILY PRN PO PAIN; Start 12/28/16 at 18:30 Folic Acid (Folic Acid) 1 mg DAILY PO Last administered on 01/05/17 09:26; Start 12/29/16 at 09:00 Hydralazine HCl (Apresoline) 25 mg PRN Q6HRS PRN PO hypertension; Start at 18:15 Olanzapine (ZyPREXA) 2.5 mg TID PO Last administered on 01/05/17 19:31; Start 12/28/16 at 21:00 Olanzapine (ZyPREXA) 5 mg PRN Q8HRS PRN PO ANXIETY / AGITATION Last administered on 01/05/17 06:14; Start 12/28/16 at 18:15 Thiamine HCl (Vitamin B-1) 100 mg DAILY PO Last administered on 01/05/17 09:27 ; Start 12/29/16 at 09:00 Divalproex Sodium (Depakote Sprinkles) 125 mg BID@0900,1400 PO Last administered on 01/02/17 13:38; Start 12/29/16 at 09:00; Stop 01/02/17 at 16:48 ; Status DC Vitamin D (Vitamin D3) 50,000 unit WEEKLY PO Last administered on 12/30/16 07: 34; Start 12/30/16 at 09:00 Divalproex Sodium (Depakote Sprinkles) 250 mg BID@0900,1400 PO Last administered on 01/05/17 14:29; Start 01/03/17 at 09:00 Trazodone HCl (Desyrel) 50 mg QHS PO Last administered on 01/05/17 19:32; Start 01/02/17 at 21:00 Trazodone HCl (Desyrel) 50 mg QHS PRN PO INSOMNIA; Start 01/02/17 at 16:45 Active Scripts Active Reported Aspirin 325 Mg Tablet 325 Mg PO PRN DAILY PRN Thiamine Hcl 100 Mg Tablet 100 Mg PO DAILY Zyprexa (Olanzapine) 5 Mg Tablet 5 Mg PO PRN Q8HRS PRN Olanzapine 5 Mg Tablet 2.5 Mg PO TID Hydralazine Hcl 25 Mg Tablet 25 Mg PO PRN Q6HRS PRN Folic Acid 1 Mg Tablet 1 Mg PO DAILY Diagnosis: Problems: (1) Wernicke-Korsakoff psychosis (2) Impulse control disorder (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
[2017-01-06] MEDS: FOLIC ACID 1 MG TABLET PO SCH (10:15)
[2017-01-06] MEDS: THIAMINE 100 MG TABLET. PO SCH (10:15)
[2017-01-06] MEDS: DIVALPROEX 125 MG CAP.SPRINK PO SCH ×2 (10:15→14:07)
[2017-01-06] MEDS: NICOTINE 21MG PATCH. TD SCH (10:16)
[2017-01-06] MEDS: OLANZapine 5 MG TABLET PO SCH ×3 (10:16→19:48)
[2017-01-06 15:50] VITALS: BP 144/94
--- NOTE | 2017-01-06 18:44 | PN ---
DATE: 01/05/2017 This note covers elements not covered in my initial note of 01/05/2017. SUBJECTIVE: I met with the patient individually evening of 01/05/2017, staffed at a treatment team meeting with the entire team morning of 01/05/2017. The patient's , Pilar, and stepdaughter, Nakita, attended the conference. We had a lengthy review of his history, past history of alcohol abuse, worsening confabulation dementia, and gait imbalance. Discussed his current psychotropics, prognosis, and placement options. 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 REVIEW OF SYSTEMS: No CV, , pulmonary, eye, ENT system symptoms on review. Reliability poor. MENTAL STATUS EXAM: Oriented to himself. Insight, judgment, recent and remote memory, attention, concentration, fund of knowledge poor, consistent with his diagnosis mentioned in my initial note. LABORATORY DATA: Reviewed. PLAN: Continue current psychotropics. Depakote was increased. Repeat labs level is awaited. Reviewed drug interactions. Risk/benefit ratio favors no further change. HEMAL PICKETT MD DR: JUAN PABLO/anthony JOB#: [id number] / [id number]
--- NOTE | 2017-01-06 19:45 | PDOC ---
Exam Faustino Demential Exam: Faustino Note: Please also refer to the separate dictated note~for this date of service dictated separately.~Patient seen individually. Discussed the patient with Nursing staff reviewed the chart.~Reviewed interim history and current functioning. Reviewed vital signs,~Labs/ Radiology~and current medications noted below. Continue current treatment with the changes noted in the dictated addendum note Assessment: Vital Signs: Vital Signs Date Time Temp Pulse Resp B/P (MAP) Pulse Ox O2 Delivery O2 Flow Rate FiO2 01/06/17 15:50 97.2 96 21 144/94 (111) 97 01/01/17 16:13 Room Air I&O Intake and Output 01/06/17 06:59 Intake Total 1560 ml Balance 1560 ml Intake Oral 1560 ml Labs: Laboratory Tests Test 01/06/17 06:57 White Blood Count 7.2 x10^3/uL (4.0-11.0) Red Blood Count 3.75 x10^6/uL (4.30-5.70) L Hemoglobin 12.4 g/dL (13.0-17.5) L Hematocrit 37.4 % (39.0-53.0) L Mean Corpuscular Volume 100 fL (79-100) Mean Corpuscular Hemoglobin 33 pg (25-35) Mean Corpuscular Hemoglobin Concent 33 g/dL (31-37) Red Cell Distribution Width 14.5 % (11.5-14.5) Platelet Count 206 x10^3/uL (140-400) Neutrophils (%) (Auto) 58 % (31-73) Lymphocytes (%) (Auto) 25 % (24-48) Monocytes (%) (Auto) 14 % (0-9) H Eosinophils (%) (Auto) 2 % (0-3) Basophils (%) (Auto) 1 % (0-3) Neutrophils # (Auto) 4.1 x10^3uL (1.8-7.7) Lymphocytes # (Auto) 1.8 x10^3/uL (1.0-4.8) Monocytes # (Auto) 1.0 x10^3/uL (0.0-1.1) Eosinophils # (Auto) 0.2 x10^3/uL (0.0-0.7) Basophils # (Auto) 0.1 x10^3/uL (0.0-0.2) Sodium Level 143 mmol/L (136-145) Potassium Level 4.0 mmol/L (3.5-5.1) Chloride Level 109 mmol/L (98-107) H Carbon Dioxide Level 30 mmol/L (21-32) Anion Gap 4 (6-14) L Blood Urea Nitrogen 7 mg/dL (8-26) L Creatinine 0.9 mg/dL (0.7-1.3) Estimated GFR (Cockcroft-Gault) 84.7 BUN/Creatinine Ratio 8 (6-20) Glucose Level 89 mg/dL (70-99) Calcium Level 8.8 mg/dL (8.5-10.1) Total Bilirubin 0.3 mg/dL (0.2-1.0) Aspartate Amino Transferase (AST) 15 U/L (15-37) Alanine Aminotransferase (ALT) 18 U/L (16-63) Alkaline Phosphatase 63 U/L (46-116) Total Protein 5.7 g/dL (6.4-8.2) L Albumin 2.5 g/dL (3.4-5.0) L Albumin/Globulin Ratio 0.8 (1.0-1.7) L Valproic Acid Level 18 mcg/mL (50-100) L Valproic Acid Last Dose Date 01/05/2017 Valproic Acid Last Dose Time 1400 Current Medications: Meds: Current Medications Acetaminophen (Tylenol) 650 mg PRN Q6HRS PRN PO PAIN / TEMP; Start 12/28/16 at 15:00 Multi-Ingredient Ointment (Analgesic [place]) 1 tessy PRN QID PRN TP MUSCLE PAIN; Start 12/28/16 at 15:00 Al Hydroxide/Mg Hydroxide (Mylanta Plus Xs) 15 ml PRN AFTMEALHC PRN PO DYSPEPSIA; Start 12/28/16 at 15:00 Magnesium Hydroxide (Milk Of Magnesia) 2,400 mg PRN QHS PRN PO CONSTIPATION; Start 12/28/16 at 15:00 Nicotine (Nicoderm Cq 21mg) 1 patch DAILY TD Last administered on 01/06/17t 10: 16; Start 12/28/16 at 16:00 Aspirin (Ebenezer Aspirin) 325 mg PRN DAILY PRN PO PAIN; Start 12/28/16 at 18:30 Folic Acid (Folic Acid) 1 mg DAILY PO Last administered on 01/06/17 10:15; Start 12/29/16 at 09:00 Hydralazine HCl (Apresoline) 25 mg PRN Q6HRS PRN PO hypertension; Start at 18:15 Olanzapine (ZyPREXA) 2.5 mg TID PO Last administered on 01/06/17 14:06; Start 12/28/16 at 21:00 Olanzapine (ZyPREXA) 5 mg PRN Q8HRS PRN PO ANXIETY / AGITATION Last administered on 01/05/17 06:14; Start 12/28/16 at 18:15 Thiamine HCl (Vitamin B-1) 100 mg DAILY PO Last administered on 01/06/17 10:15 ; Start 12/29/16 at 09:00 Divalproex Sodium (Depakote Sprinkles) 125 mg BID@0900,1400 PO Last administered on 01/02/17 13:38; Start 12/29/16 at 09:00; Stop 01/02/17 at 16:48 ; Status DC Vitamin D (Vitamin D3) 50,000 unit WEEKLY PO Last administered on 01/06/17 09: 00; Start 12/30/16 at 09:00 Divalproex Sodium (Depakote Sprinkles) 250 mg BID@0900,1400 PO Last administered on 01/06/17 14:07; Start 01/03/17 at 09:00 Trazodone HCl (Desyrel) 50 mg QHS PO Last administered on 01/05/17 19:32; Start 01/02/17 at 21:00 Trazodone HCl (Desyrel) 50 mg QHS PRN PO INSOMNIA; Start 01/02/17 at 16:45 Active Scripts Active Reported Aspirin 325 Mg Tablet 325 Mg PO PRN DAILY PRN Thiamine Hcl 100 Mg Tablet 100 Mg PO DAILY Zyprexa (Olanzapine) 5 Mg Tablet 5 Mg PO PRN Q8HRS PRN Olanzapine 5 Mg Tablet 2.5 Mg PO TID Hydralazine Hcl 25 Mg Tablet 25 Mg PO PRN Q6HRS PRN Folic Acid 1 Mg Tablet 1 Mg PO DAILY Diagnosis: Problems: (1) Dementia associated with alcoholism (2) Anxiety disorder (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
[2017-01-06] MEDS: traZODone 50 MG TABLET. PO SCH (19:47)
--- NOTE | 2017-01-07 04:44 | PN ---
DATE: 01/06/2017 This note covers the elements not covered in my initial note of 01/06/2017. I met with the patient individually in the morning of 01/06/2017. Per nursing report, the patient remains confused, has daily obvious confabulation, but not aggressive. REVIEW OF SYSTEMS: No CV, , pulmonary, eye, ENT system symptoms on review. Reliability poor. MENTAL STATUS EXAM: Oriented to himself. Insight, judgment, recent and remote memory, attention, concentration, fund of knowledge poor, consistent with his diagnosis mentioned in my initial note. PLAN: Continue current psychotropics. Make further adjustments as clinically indicated. MAN Tanya PICKETT MD DR: JUAN PABLO/anthony JOB#: [id number] / [id number]
[2017-01-07 06:00] VITALS: BP 119/70
[2017-01-07] MEDS: DIVALPROEX 125 MG CAP.SPRINK PO SCH ×2 (08:59→15:04)
[2017-01-07] MEDS: THIAMINE 100 MG TABLET. PO SCH (08:59)
[2017-01-07] MEDS: FOLIC ACID 1 MG TABLET PO SCH (08:59)
[2017-01-07] MEDS: OLANZapine 5 MG TABLET PO SCH ×3 (08:59→19:48)
[2017-01-07] MEDS: NICOTINE 21MG PATCH. TD SCH (09:00)
[2017-01-07 15:32] VITALS: BP 117/81
[2017-01-07] MEDS: traZODone 50 MG TABLET. PO SCH (19:48)
[2017-01-08 06:31] VITALS: BP 154/91
[2017-01-08] MEDS: NICOTINE 21MG PATCH. TD SCH (08:09)
[2017-01-08] MEDS: DIVALPROEX 125 MG CAP.SPRINK PO SCH ×2 (08:10→13:36)
[2017-01-08] MEDS: OLANZapine 5 MG TABLET PO SCH ×3 (08:10→20:14)
[2017-01-08] MEDS: FOLIC ACID 1 MG TABLET PO SCH (08:10)
[2017-01-08] MEDS: THIAMINE 100 MG TABLET. PO SCH (08:11)
[2017-01-08 16:37] VITALS: BP 146/90
--- NOTE | 2017-01-08 19:38 | PDOC ---
Exam Faustino Demential Exam: Faustino Note: Please also refer to the separate dictated note~for this date of service dictated separately.~Patient seen individually. Discussed the patient with Nursing staff reviewed the chart.~Reviewed interim history and current functioning. Reviewed vital signs,~Labs/ Radiology~and current medications noted below. Continue current treatment with the changes noted in the dictated addendum note Assessment: Vital Signs: Vital Signs Date Time Temp Pulse Resp B/P (MAP) Pulse Ox O2 Delivery O2 Flow Rate FiO2 01/08/17 16:37 98.1 96 18 146/90 (108) 98 01/07/17 15:32 Room Air I&O Intake and Output 01/08/17 06:59 Intake Total 1520 ml Balance 1520 ml Intake Oral 1520 ml Current Medications: Meds: Current Medications Acetaminophen (Tylenol) 650 mg PRN Q6HRS PRN PO PAIN / TEMP; Start 12/28/16 at 15:00 Multi-Ingredient Ointment (Analgesic [place]) 1 tessy PRN QID PRN TP MUSCLE PAIN; Start 12/28/16 at 15:00 Al Hydroxide/Mg Hydroxide (Mylanta Plus Xs) 15 ml PRN AFTMEALHC PRN PO DYSPEPSIA; Start 12/28/16 at 15:00 Magnesium Hydroxide (Milk Of Magnesia) 2,400 mg PRN QHS PRN PO CONSTIPATION; Start 12/28/16 at 15:00 Nicotine (Nicoderm Cq 21mg) 1 patch DAILY TD Last administered on 01/08/17 08: 09; Start 12/28/16 at 16:00 Aspirin (Ebenezer Aspirin) 325 mg PRN DAILY PRN PO PAIN; Start 12/28/16 at 18:30 Folic Acid (Folic Acid) 1 mg DAILY PO Last administered on 01/08/17 08:10; Start 12/29/16 at 09:00 Hydralazine HCl (Apresoline) 25 mg PRN Q6HRS PRN PO hypertension; Start at 18:15 Olanzapine (ZyPREXA) 2.5 mg TID PO Last administered on 01/08/17 13:36; Start 12/28/16 at 21:00 Olanzapine (ZyPREXA) 5 mg PRN Q8HRS PRN PO ANXIETY / AGITATION Last administered on 01/05/17 06:14; Start 12/28/16 at 18:15 Thiamine HCl (Vitamin B-1) 100 mg DAILY PO Last administered on 01/08/17 08:11 ; Start 12/29/16 at 09:00 Divalproex Sodium (Depakote Sprinkles) 125 mg BID@0900,1400 PO Last administered on 01/02/17 13:38; Start 12/29/16 at 09:00; Stop 01/02/17 at 16:48 ; Status DC Vitamin D (Vitamin D3) 50,000 unit WEEKLY PO Last administered on 01/06/17 09: 00; Start 12/30/16 at 09:00 Divalproex Sodium (Depakote Sprinkles) 250 mg BID@0900,1400 PO Last administered on 01/08/17 13:36; Start 01/03/17 at 09:00 Trazodone HCl (Desyrel) 50 mg QHS PO Last administered on 01/07/17 19:48; Start 01/02/17 at 21:00 Trazodone HCl (Desyrel) 50 mg QHS PRN PO INSOMNIA; Start 01/02/17 at 16:45 Active Scripts Active Reported Aspirin 325 Mg Tablet 325 Mg PO PRN DAILY PRN Thiamine Hcl 100 Mg Tablet 100 Mg PO DAILY Zyprexa (Olanzapine) 5 Mg Tablet 5 Mg PO PRN Q8HRS PRN Olanzapine 5 Mg Tablet 2.5 Mg PO TID Hydralazine Hcl 25 Mg Tablet 25 Mg PO PRN Q6HRS PRN Folic Acid 1 Mg Tablet 1 Mg PO DAILY Diagnosis: Problems: (1) Dementia associated with alcoholism (2) Anxiety disorder (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
[2017-01-08] MEDS: traZODone 50 MG TABLET. PO SCH (20:13)
[2017-01-09 05:56] VITALS: BP 112/71
[2017-01-09] MEDS: THIAMINE 100 MG TABLET. PO SCH (08:33)
[2017-01-09] MEDS: FOLIC ACID 1 MG TABLET PO SCH (08:33)
[2017-01-09] MEDS: NICOTINE 21MG PATCH. TD SCH (08:34)
[2017-01-09] MEDS: OLANZapine 5 MG TABLET PO SCH ×3 (08:34→19:54)
[2017-01-09] MEDS: DIVALPROEX 125 MG CAP.SPRINK PO SCH ×2 (08:34→14:53)
[2017-01-09 15:46] VITALS: BP 149/84
--- NOTE | 2017-01-09 19:46 | PDOC ---
Exam Faustino Demential Exam: Faustino Note: Please also refer to the separate dictated note~for this date of service dictated separately.~Patient seen individually. Discussed the patient with Nursing staff reviewed the chart.~Reviewed interim history and current functioning. Reviewed vital signs,~Labs/ Radiology~and current medications noted below. Continue current treatment with the changes noted in the dictated addendum note Assessment: Vital Signs: Vital Signs Date Time Temp Pulse Resp B/P (MAP) Pulse Ox O2 Delivery O2 Flow Rate FiO2 01/09/17 15:46 98.6 104 18 149/84 (105) 98 01/07/17 15:32 Room Air I&O Intake and Output 01/09/17 07:00 Intake Total 1440 ml Balance 1440 ml Intake Oral 1440 ml # Voids 1 Current Medications: Meds: Current Medications Acetaminophen (Tylenol) 650 mg PRN Q6HRS PRN PO PAIN / TEMP; Start 12/28/16 at 15:00 Multi-Ingredient Ointment (Analgesic [place]) 1 tessy PRN QID PRN TP MUSCLE PAIN; Start 12/28/16 at 15:00 Al Hydroxide/Mg Hydroxide (Mylanta Plus Xs) 15 ml PRN AFTMEALHC PRN PO DYSPEPSIA; Start 12/28/16 at 15:00 Magnesium Hydroxide (Milk Of Magnesia) 2,400 mg PRN QHS PRN PO CONSTIPATION; Start 12/28/16 at 15:00 Nicotine (Nicoderm Cq 21mg) 1 patch DAILY TD Last administered on 01/09/17 08: 34; Start 12/28/16 at 16:00 Aspirin (Ebenezer Aspirin) 325 mg PRN DAILY PRN PO PAIN; Start 12/28/16 at 18:30 Folic Acid (Folic Acid) 1 mg DAILY PO Last administered on 01/09/17 08:33; Start 12/29/16 at 09:00 Hydralazine HCl (Apresoline) 25 mg PRN Q6HRS PRN PO hypertension; Start at 18:15 Olanzapine (ZyPREXA) 2.5 mg TID PO Last administered on 01/09/17 14:53; Start 12/28/16 at 21:00 Olanzapine (ZyPREXA) 5 mg PRN Q8HRS PRN PO ANXIETY / AGITATION Last administered on 01/05/17 06:14; Start 12/28/16 at 18:15 Thiamine HCl (Vitamin B-1) 100 mg DAILY PO Last administered on 01/09/17 08:33 ; Start 12/29/16 at 09:00 Divalproex Sodium (Depakote Sprinkles) 125 mg BID@0900,1400 PO Last administered on 01/02/17 13:38; Start 12/29/16 at 09:00; Stop 01/02/17 at 16:48 ; Status DC Vitamin D (Vitamin D3) 50,000 unit WEEKLY PO Last administered on 01/06/17 09: 00; Start 12/30/16 at 09:00 Divalproex Sodium (Depakote Sprinkles) 250 mg BID@0900,1400 PO Last administered on 01/09/17 14:53; Start 01/03/17 at 09:00; Stop 01/09/17 at 18:16 ; Status DC Trazodone HCl (Desyrel) 50 mg QHS PO Last administered on 01/08/17 20:13; Start 01/02/17 at 21:00 Trazodone HCl (Desyrel) 50 mg QHS PRN PO INSOMNIA; Start 01/02/17 at 16:45 Divalproex Sodium (Depakote Sprinkles) 375 mg BID@0900,1400 PO ; Start 01/10/17 at 09:00 Active Scripts Active Reported Aspirin 325 Mg Tablet 325 Mg PO PRN DAILY PRN Thiamine Hcl 100 Mg Tablet 100 Mg PO DAILY Zyprexa (Olanzapine) 5 Mg Tablet 5 Mg PO PRN Q8HRS PRN Olanzapine 5 Mg Tablet 2.5 Mg PO TID Hydralazine Hcl 25 Mg Tablet 25 Mg PO PRN Q6HRS PRN Folic Acid 1 Mg Tablet 1 Mg PO DAILY Diagnosis: Problems: (1) Dementia associated with alcoholism (2) Anxiety disorder (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
[2017-01-09] MEDS: traZODone 50 MG TABLET. PO SCH (19:54)
[2017-01-09] MEDS: traZODone 50 MG TABLET. PO PRN (23:54)
[2017-01-09] MEDS: OLANZapine 5 MG TABLET PO PRN (23:54)
--- NOTE | 2017-01-10 08:05 | PN ---
DATE: 01/08/2017 SUBJECTIVE: This late entry 01/08/2017 covers elements not covered in my initial note of 01/08/2017. Met with the patient evening of 01/08/2017. The patient remains confused. Confabulation remains evident consistent with his Korsakoff diagnosis. He has not been aggressive. REVIEW OF SYSTEMS: No CV, , pulmonary, eye, ENT system symptoms on review. Reliability poor. MENTAL STATUS EXAM: Oriented to himself. Insight, judgment, recent and remote memory, attention, concentration, fund of knowledge poor, consistent with his diagnosis mentioned in my initial note. PLAN: Continue current psychotropics mentioned in my initial note. Depakote Sprinkles 250 b.i.d., level on 01/06/2017 was 18. We will increase it to 375 b.i.d. Check labs level in 3 days. Adjust further as clinically indicated. MAN Tanya PICKETT MD DR: JUAN PABLO/anthony JOB#: [id number] / [id number]
[2017-01-10] MEDS: NICOTINE 21MG PATCH. TD SCH (09:53)
[2017-01-10] MEDS: FOLIC ACID 1 MG TABLET PO SCH (09:53)
[2017-01-10] MEDS: THIAMINE 100 MG TABLET. PO SCH (09:53)
[2017-01-10] MEDS: OLANZapine 5 MG TABLET PO SCH ×3 (09:54→19:56)
[2017-01-10] MEDS: DIVALPROEX 125 MG CAP.SPRINK PO SCH ×2 (09:57→14:20)
[2017-01-10 15:48] VITALS: BP 135/91
--- NOTE | 2017-01-10 19:45 | PDOC ---
Exam Faustino Demential Exam: Faustino Note: Please also refer to the separate dictated note~for this date of service dictated separately.~Patient seen individually. Discussed the patient with Nursing staff reviewed the chart.~Reviewed interim history and current functioning. Reviewed vital signs,~Labs/ Radiology~and current medications noted below. Continue current treatment with the changes noted in the dictated addendum note Assessment: Vital Signs: Vital Signs Date Time Temp Pulse Resp B/P (MAP) Pulse Ox O2 Delivery O2 Flow Rate FiO2 01/10/17 15:48 98.5 102 20 135/91 (106) 98 01/07/17 15:32 Room Air I&O Intake and Output 01/11/17 07:00 Intake Total 1320 ml Balance 1320 ml Intake Oral 1320 ml Current Medications: Meds: Current Medications Acetaminophen (Tylenol) 650 mg PRN Q6HRS PRN PO PAIN / TEMP; Start 12/28/16 at 15:00 Multi-Ingredient Ointment (Analgesic [place]) 1 tessy PRN QID PRN TP MUSCLE PAIN; Start 12/28/16 at 15:00 Al Hydroxide/Mg Hydroxide (Mylanta Plus Xs) 15 ml PRN AFTMEALHC PRN PO DYSPEPSIA; Start 12/28/16 at 15:00 Magnesium Hydroxide (Milk Of Magnesia) 2,400 mg PRN QHS PRN PO CONSTIPATION; Start 12/28/16 at 15:00 Nicotine (Nicoderm Cq 21mg) 1 patch DAILY TD Last administered on 01/10/17 09: 53; Start 12/28/16 at 16:00 Aspirin (Ebenezer Aspirin) 325 mg PRN DAILY PRN PO PAIN; Start 12/28/16 at 18:30 Folic Acid (Folic Acid) 1 mg DAILY PO Last administered on 01/10/17 09:53; Start 12/29/16 at 09:00 Hydralazine HCl (Apresoline) 25 mg PRN Q6HRS PRN PO hypertension; Start at 18:15 Olanzapine (ZyPREXA) 2.5 mg TID PO Last administered on 01/10/17 14:20; Start 12/28/16 at 21:00 Olanzapine (ZyPREXA) 5 mg PRN Q8HRS PRN PO ANXIETY / AGITATION Last administered on 01/09/17 23:54; Start 12/28/16 at 18:15 Thiamine HCl (Vitamin B-1) 100 mg DAILY PO Last administered on 01/10/17 09:53 ; Start 12/29/16 at 09:00 Divalproex Sodium (Depakote Sprinkles) 125 mg BID@0900,1400 PO Last administered on 01/02/17 13:38; Start 12/29/16 at 09:00; Stop 01/02/17 at 16:48 ; Status DC Vitamin D (Vitamin D3) 50,000 unit WEEKLY PO Last administered on 01/06/17 09: 00; Start 12/30/16 at 09:00 Divalproex Sodium (Depakote Sprinkles) 250 mg BID@0900,1400 PO Last administered on 01/09/17 14:53; Start 01/03/17 at 09:00; Stop 01/09/17 at 18:16 ; Status DC Trazodone HCl (Desyrel) 50 mg QHS PO Last administered on 01/09/17 19:54; Start 01/02/17 at 21:00 Trazodone HCl (Desyrel) 50 mg QHS PRN PO INSOMNIA Last administered on 23:54; Start 01/02/17 at 16:45 Divalproex Sodium (Depakote Sprinkles) 375 mg BID@0900,1400 PO Last administered on 01/10/17 14:20; Start 01/10/17 at 09:00 Active Scripts Active Reported Aspirin 325 Mg Tablet 325 Mg PO PRN DAILY PRN Thiamine Hcl 100 Mg Tablet 100 Mg PO DAILY Zyprexa (Olanzapine) 5 Mg Tablet 5 Mg PO PRN Q8HRS PRN Olanzapine 5 Mg Tablet 2.5 Mg PO TID Hydralazine Hcl 25 Mg Tablet 25 Mg PO PRN Q6HRS PRN Folic Acid 1 Mg Tablet 1 Mg PO DAILY Diagnosis: Problems: (1) Dementia associated with alcoholism (2) Anxiety disorder (3) Dementia associated with alcoholism with behavioral disturbance (4) Impulse control disorder (5) Wernicke-Korsakoff psychosis HEMAL PICKETT MD Jan 10, 2017 19:45
[2017-01-10] MEDS: traZODone 50 MG TABLET. PO SCH (19:56)
--- NOTE | 2017-01-11 01:37 | PN ---
DATE: 01/09/2017 SUBJECTIVE: This is a late entry 01/09/2017, covers elements not covered in my initial note of 01/09/2017. The patient was seen individually evening of 01/09/2017. Previous evening he was somewhat elated, grandiose, and hyperverbal asking female staff members to give him a hug because he was bored. He is more appropriate during the day 01/09/2017. REVIEW OF SYSTEMS: No CV, , pulmonary, eye, or ENT system symptoms on review. Reliability poor. MENTAL STATUS EXAM: Oriented to himself. Insight, judgment, recent and remote memory, attention, concentration, and fund of knowledge poor consistent with his diagnosis mentioned in my initial note. LABORATORY DATA: Reviewed. PLAN: Depakote has been increased to 375 b.i.d. with repeat labs level on 01/12/2017 since level on the lower dosage was subtherapeutic at 18. Maintain the rest of the psychotropics as before. Adjust further as clinically indicated. MAN Tanya PICKETT MD DR: JUAN PABLO/anthony JOB#: [id number] / [id number]
[2017-01-11 05:52] VITALS: BP 112/68
[2017-01-11] MEDS: DIVALPROEX 125 MG CAP.SPRINK PO SCH ×2 (09:23→14:00)
[2017-01-11] MEDS: OLANZapine 5 MG TABLET PO SCH ×3 (09:23→19:52)
[2017-01-11] MEDS: NICOTINE 21MG PATCH. TD SCH (09:23)
[2017-01-11] MEDS: THIAMINE 100 MG TABLET. PO SCH (09:23)
[2017-01-11] MEDS: FOLIC ACID 1 MG TABLET PO SCH (09:23)
[2017-01-11 16:12] VITALS: BP 127/80
[2017-01-11] MEDS: OLANZapine 5 MG TABLET PO PRN (17:05)
[2017-01-11] MEDS: MIRTAZAPINE 7.5 MG TABLET. PO SCH (19:52)
[2017-01-11] MEDS: traZODone 50 MG TABLET. PO SCH (19:52)
--- NOTE | 2017-01-11 19:52 | PDOC ---
Exam Faustino Demential Exam: Faustino Note: Please also refer to the separate dictated note~for this date of service dictated separately.~Patient seen individually. Discussed the patient with Nursing staff reviewed the chart.~Reviewed interim history and current functioning. Reviewed vital signs,~Labs/ Radiology~and current medications noted below. Continue current treatment with the changes noted in the dictated addendum note Assessment: Vital Signs: Vital Signs Date Time Temp Pulse Resp B/P (MAP) Pulse Ox O2 Delivery O2 Flow Rate FiO2 01/11/17 16:12 98.0 107 20 127/80 (96) 97 01/07/17 15:32 Room Air I&O Intake and Output 01/12/17 07:00 Intake Total 1380 ml Balance 1380 ml Intake Oral 1380 ml Current Medications: Meds: Current Medications Acetaminophen (Tylenol) 650 mg PRN Q6HRS PRN PO PAIN / TEMP; Start 12/28/16 at 15:00 Multi-Ingredient Ointment (Analgesic [place]) 1 tessy PRN QID PRN TP MUSCLE PAIN; Start 12/28/16 at 15:00 Al Hydroxide/Mg Hydroxide (Mylanta Plus Xs) 15 ml PRN AFTMEALHC PRN PO DYSPEPSIA; Start 12/28/16 at 15:00 Magnesium Hydroxide (Milk Of Magnesia) 2,400 mg PRN QHS PRN PO CONSTIPATION; Start 12/28/16 at 15:00 Nicotine (Nicoderm Cq 21mg) 1 patch DAILY TD Last administered on 01/11/17 09: 23; Start 12/28/16 at 16:00 Aspirin (Ebenezer Aspirin) 325 mg PRN DAILY PRN PO PAIN; Start 12/28/16 at 18:30 Folic Acid (Folic Acid) 1 mg DAILY PO Last administered on 01/11/17 09:23; Start 12/29/16 at 09:00 Hydralazine HCl (Apresoline) 25 mg PRN Q6HRS PRN PO hypertension; Start at 18:15 Olanzapine (ZyPREXA) 2.5 mg TID PO Last administered on 01/11/17 14:00; Start 12/28/16 at 21:00 Olanzapine (ZyPREXA) 5 mg PRN Q8HRS PRN PO ANXIETY / AGITATION Last administered on 01/11/17 17:05; Start 12/28/16 at 18:15 Thiamine HCl (Vitamin B-1) 100 mg DAILY PO Last administered on 01/11/17 09:23 ; Start 12/29/16 at 09:00 Divalproex Sodium (Depakote Sprinkles) 125 mg BID@0900,1400 PO Last administered on 01/02/17 13:38; Start 12/29/16 at 09:00; Stop 01/02/17 at 16:48 ; Status DC Vitamin D (Vitamin D3) 50,000 unit WEEKLY PO Last administered on 01/06/17 09: 00; Start 12/30/16 at 09:00 Divalproex Sodium (Depakote Sprinkles) 250 mg BID@0900,1400 PO Last administered on 01/09/17 14:53; Start 01/03/17 at 09:00; Stop 01/09/17 at 18:16 ; Status DC Trazodone HCl (Desyrel) 50 mg QHS PO Last administered on 01/10/17 19:56; Start 01/02/17 at 21:00 Trazodone HCl (Desyrel) 50 mg QHS PRN PO INSOMNIA Last administered on 23:54; Start 01/02/17 at 16:45 Divalproex Sodium (Depakote Sprinkles) 375 mg BID@0900,1400 PO Last administered on 01/11/17 14:00; Start 01/10/17 at 09:00; Stop 01/11/17 at 18:30 ; Status DC Trazodone HCl (Desyrel) 12.5 mg TID@0900,1300,1700 PO ; Start 01/12/17 at 09:00 Mirtazapine (Remeron) 7.5 mg QHS PO ; Start 01/11/17 at 21:00 Active Scripts Active Reported Aspirin 325 Mg Tablet 325 Mg PO PRN DAILY PRN Thiamine Hcl 100 Mg Tablet 100 Mg PO DAILY Zyprexa (Olanzapine) 5 Mg Tablet 5 Mg PO PRN Q8HRS PRN Olanzapine 5 Mg Tablet 2.5 Mg PO TID Hydralazine Hcl 25 Mg Tablet 25 Mg PO PRN Q6HRS PRN Folic Acid 1 Mg Tablet 1 Mg PO DAILY Diagnosis: Problems: (1) Dementia associated with alcoholism (2) Anxiety disorder (3) Dementia associated with alcoholism with behavioral disturbance (4) Impulse control disorder (5) Wernicke-Korsakoff psychosis HEMAL PICKETT MD Jan 11, 2017 19:52
[2017-01-11] MEDS: traZODone 50 MG TABLET. PO PRN (22:05)
--- NOTE | 2017-01-12 00:35 | PN ---
DATE: 01/10/2017 This late entry 01/10/2017 covers elements not covered in my initial note of 01/10/2017. SUBJECTIVE: I met with the patient in the evening of 01/10/2017. The patient remains confused, wandering, less intrusive. He is agitated previous evening due to noise in his room from his roommate, but better during the day on 01/10/2017. REVIEW OF SYSTEMS: No CV, , pulmonary, eye, ENT system symptoms on review. Reliability poor. MENTAL STATUS EXAM: Oriented to himself. Insight, judgment, recent and remote memory, attention, concentration, fund of knowledge poor, consistent with his diagnosis. He continues to have confabulation consistent with his diagnosis. LABORATORY DATA: Reviewed. DIAGNOSIS: Mentioned in my initial note. PLAN: Continue current psychotropics reviewed, drug interactions, risk/benefit ratio favors no further change as of now. HEMAL PICKETT MD DR: JUAN PABLO/anthony JOB#: [id number] / [id number]
[2017-01-12 06:06] VITALS: BP 116/84
[2017-01-12 08:00] LABS: BASO # 0.1 x10^3/uL (0.0-0.2); BASO % 1 % (0-3); EOS # 0.5 x10^3/uL (0.0-0.7); EOS % 5 % (0-3); HEMATOCRIT 34.9 % (39.0-53.0); LYMPH # 1.1 x10^3/uL (1.0-4.8); LYMPH % 12 % (24-48); MEAN CORPUSCULAR HEMOGLOBIN 34 pg (25-35); MEAN CORPUSCULAR HGB CONC 34 g/dL (31-37); MEAN CORPUSCULAR VOLUME 98 fL (79-100); MONO # 1.8 x10^3/uL (0.0-1.1); MONO % 20 % (0-9); NEUT # 5.5 x10^3uL (1.8-7.7); NEUT % 62 % (31-73); PLATELET COUNT 208 x10^3/uL (140-400); RED BLOOD COUNT 3.58 x10^6/uL (4.30-5.70); RED CELL DISTRIBUTION WIDTH 14.6 % (11.5-14.5); WHITE BLOOD COUNT 8.9 x10^3/uL (4.0-11.0)
[2017-01-12 08:15] LABS: ALBUMIN 2.3 g/dL (3.4-5.0); ALBUMIN/GLOBULIN RATIO 0.7 (1.0-1.7); ALK PHOS 63 U/L (46-116); ALT (SGPT) 17 U/L (16-63); ANION GAP 6 (6-14); AST (SGOT) 17 U/L (15-37); BLOOD UREA NITROGEN 11 mg/dL (8-26); BUN/CREATININE RATIO 12 (6-20); CALCIUM 8.7 mg/dL (8.5-10.1); CARBON DIOXIDE 28 mmol/L (21-32); CHLORIDE 107 mmol/L (98-107); CREATININE 0.9 mg/dL (0.7-1.3); GFR 84.7; GLUCOSE 96 mg/dL (70-99); POTASSIUM 3.7 mmol/L (3.5-5.1); SODIUM 141 mmol/L (136-145); TOTAL BILIRUBIN 0.4 mg/dL (0.2-1.0); TOTAL PROTEIN 5.7 g/dL (6.4-8.2)
[2017-01-12 08:17] LABS: VAL ACID 40 mcg/mL (50-100)
[2017-01-12] MEDS: OLANZapine 5 MG TABLET PO SCH ×3 (08:24→20:05)
[2017-01-12] MEDS: THIAMINE 100 MG TABLET. PO SCH (08:24)
[2017-01-12] MEDS: FOLIC ACID 1 MG TABLET PO SCH (08:24)
[2017-01-12] MEDS: NICOTINE 21MG PATCH. TD SCH (08:24)
[2017-01-12] MEDS: traZODone 50 MG TABLET. PO SCH ×4 (08:25→20:05)
[2017-01-12] MEDS: ACETAMINOPHEN 325 MG TABLET PO PRN (13:38)
[2017-01-12 16:12] VITALS: BP 118/72
--- NOTE | 2017-01-12 19:50 | PDOC ---
Exam Faustino Demential Exam: Faustino Note: Please also refer to the separate dictated note~for this date of service dictated separately.~Patient seen individually. Discussed the patient with Nursing staff reviewed the chart.~Reviewed interim history and current functioning. Reviewed vital signs,~Labs/ Radiology~and current medications noted below. Continue current treatment with the changes noted in the dictated addendum note Assessment: Vital Signs: Vital Signs Date Time Temp Pulse Resp B/P (MAP) Pulse Ox O2 Delivery O2 Flow Rate FiO2 01/12/17 16:12 98.7 65 18 118/72 (87) 96 01/07/17 15:32 Room Air I&O Intake and Output 01/13/17 06:59 Intake Total 1440 ml Balance 1440 ml Intake Oral 1440 ml Labs: Laboratory Tests Test 01/12/17 07:20 White Blood Count 8.9 x10^3/uL (4.0-11.0) Red Blood Count 3.58 x10^6/uL (4.30-5.70) L Hemoglobin 12.0 g/dL (13.0-17.5) L Hematocrit 34.9 % (39.0-53.0) L Mean Corpuscular Volume 98 fL (79-100) Mean Corpuscular Hemoglobin 34 pg (25-35) Mean Corpuscular Hemoglobin Concent 34 g/dL (31-37) Red Cell Distribution Width 14.6 % (11.5-14.5) H Platelet Count 208 x10^3/uL (140-400) Neutrophils (%) (Auto) 62 % (31-73) Lymphocytes (%) (Auto) 12 % (24-48) L Monocytes (%) (Auto) 20 % (0-9) H Eosinophils (%) (Auto) 5 % (0-3) H Basophils (%) (Auto) 1 % (0-3) Neutrophils # (Auto) 5.5 x10^3uL (1.8-7.7) Lymphocytes # (Auto) 1.1 x10^3/uL (1.0-4.8) Monocytes # (Auto) 1.8 x10^3/uL (0.0-1.1) H Eosinophils # (Auto) 0.5 x10^3/uL (0.0-0.7) Basophils # (Auto) 0.1 x10^3/uL (0.0-0.2) Sodium Level 141 mmol/L (136-145) Potassium Level 3.7 mmol/L (3.5-5.1) Chloride Level 107 mmol/L (98-107) Carbon Dioxide Level 28 mmol/L (21-32) Anion Gap 6 (6-14) Blood Urea Nitrogen 11 mg/dL (8-26) Creatinine 0.9 mg/dL (0.7-1.3) Estimated GFR (Cockcroft-Gault) 84.7 BUN/Creatinine Ratio 12 (6-20) Glucose Level 96 mg/dL (70-99) Calcium Level 8.7 mg/dL (8.5-10.1) Total Bilirubin 0.4 mg/dL (0.2-1.0) Aspartate Amino Transferase (AST) 17 U/L (15-37) Alanine Aminotransferase (ALT) 17 U/L (16-63) Alkaline Phosphatase 63 U/L (46-116) Total Protein 5.7 g/dL (6.4-8.2) L Albumin 2.3 g/dL (3.4-5.0) L Albumin/Globulin Ratio 0.7 (1.0-1.7) L Valproic Acid Level 40 mcg/mL (50-100) L Valproic Acid Last Dose Date 01/11/17 Valproic Acid Last Dose Time 2100 Current Medications: Meds: Current Medications Acetaminophen (Tylenol) 650 mg PRN Q6HRS PRN PO PAIN / TEMP Last administered on 01/12/17t 13:38; Start 12/28/16 at 15:00 Multi-Ingredient Ointment (Analgesic [place]) 1 tessy PRN QID PRN TP MUSCLE PAIN; Start 12/28/16 at 15:00 Al Hydroxide/Mg Hydroxide (Mylanta Plus Xs) 15 ml PRN AFTMEALHC PRN PO DYSPEPSIA; Start 12/28/16 at 15:00 Magnesium Hydroxide (Milk Of Magnesia) 2,400 mg PRN QHS PRN PO CONSTIPATION; Start 12/28/16 at 15:00 Nicotine (Nicoderm Cq 21mg) 1 patch DAILY TD Last administered on 01/12/17 08: 24; Start 12/28/16 at 16:00 Aspirin (Ebenezer Aspirin) 325 mg PRN DAILY PRN PO PAIN; Start 12/28/16 at 18:30 Folic Acid (Folic Acid) 1 mg DAILY PO Last administered on 01/12/17 08:24; Start 12/29/16 at 09:00 Hydralazine HCl (Apresoline) 25 mg PRN Q6HRS PRN PO hypertension; Start at 18:15 Olanzapine (ZyPREXA) 2.5 mg TID PO Last administered on 01/12/17 13:38; Start 12/28/16 at 21:00 Olanzapine (ZyPREXA) 5 mg PRN Q8HRS PRN PO ANXIETY / AGITATION Last administered on 01/11/17 17:05; Start 12/28/16 at 18:15 Thiamine HCl (Vitamin B-1) 100 mg DAILY PO Last administered on 01/12/17 08:24 ; Start 12/29/16 at 09:00 Divalproex Sodium (Depakote Sprinkles) 125 mg BID@0900,1400 PO Last administered on 01/02/17 13:38; Start 12/29/16 at 09:00; Stop 01/02/17 at 16:48 ; Status DC Vitamin D (Vitamin D3) 50,000 unit WEEKLY PO Last administered on 01/06/17 09: 00; Start 12/30/16 at 09:00 Divalproex Sodium (Depakote Sprinkles) 250 mg BID@0900,1400 PO Last administered on 01/09/17 14:53; Start 01/03/17 at 09:00; Stop 01/09/17 at 18:16 ; Status DC Trazodone HCl (Desyrel) 50 mg QHS PO Last administered on 01/11/17 19:52; Start 01/02/17 at 21:00 Trazodone HCl (Desyrel) 50 mg QHS PRN PO INSOMNIA Last administered on 22:05; Start 01/02/17 at 16:45 Divalproex Sodium (Depakote Sprinkles) 375 mg BID@0900,1400 PO Last administered on 01/11/17 14:00; Start 01/10/17 at 09:00; Stop 01/11/17 at 18:30 ; Status DC Trazodone HCl (Desyrel) 12.5 mg TID@0900,1300,1700 PO Last administered on 01/12 17:09; Start 01/12/17 at 09:00 Mirtazapine (Remeron) 7.5 mg QHS PO Last administered on 01/11/17 19:52; Start 01/11/17 at 21:00 Risperidone (RisperDAL) 0.25 mg BID PO ; Start 01/12/17 at 21:00 Active Scripts Active Reported Aspirin 325 Mg Tablet 325 Mg PO PRN DAILY PRN Thiamine Hcl 100 Mg Tablet 100 Mg PO DAILY Zyprexa (Olanzapine) 5 Mg Tablet 5 Mg PO PRN Q8HRS PRN Olanzapine 5 Mg Tablet 2.5 Mg PO TID Hydralazine Hcl 25 Mg Tablet 25 Mg PO PRN Q6HRS PRN Folic Acid 1 Mg Tablet 1 Mg PO DAILY Diagnosis: Problems: (1) Dementia associated with alcoholism (2) Anxiety disorder (3) Dementia associated with alcoholism with behavioral disturbance (4) Impulse control disorder (5) Wernicke-Korsakoff psychosis HEMAL PICKETT MD Jan 12, 2017 19:50
[2017-01-12] MEDS: risperiDONE 0.25 MG TABLET. PO SCH (20:05)
[2017-01-12] MEDS: traZODone 50 MG TABLET. PO PRN (20:05)
[2017-01-12] MEDS: MIRTAZAPINE 7.5 MG TABLET. PO SCH (20:05)
--- NOTE | 2017-01-13 01:04 | PN ---
DATE: 01/11/2017 PSYCHIATRIC PROGRESS NOTE This is a late entry for 01/11/2017, covers elements not covered in my initial note of 01/11/2017. SUBJECTIVE: The patient was seen individually the evening of 01/11/2017. He slept for 3-1/4 hours previous evening, quite anxious, restless, confabulating, paranoid, very agitated in the evening of 01/11/2017 as I met with him. Earlier he had ran and grabbed a SIGN MAINTENANCE telling the SIGN MAINTENANCE that he needed a gun to protect himself, paranoid, suspicious. REVIEW OF SYSTEMS: No CV, , pulmonary, eye, ENT system symptoms on review. Reliability poor. MENTAL STATUS EXAM: Oriented to himself. Insight, judgment, recent and remote memory, attention, concentration, fund of knowledge poor, consistent with his diagnosis mentioned in my initial note. 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 Rest unchanged. PLAN: Start Remeron 7.5 mg p.o. at bedtime. Nursing staff wonder if confusion, agitation is worse on Depakote and we will stop it. Start trazodone scheduled 12.5 mg at 9 a.m., 1 p.m. and 5 p.m. To improve anxiety, continue Zyprexa p.r.n. Consider Risperdal if psychotic symptoms are prominent. Reviewed drug interactions. Risk/benefit ratio favors no further change at this time. HEMAL PICKETT MD DR: JUAN PABLO/anthony JOB#: [id number] / [id number]
[2017-01-13] MEDS: FOLIC ACID 1 MG TABLET PO SCH (08:07)
[2017-01-13] MEDS: NICOTINE 21MG PATCH. TD SCH (08:07)
[2017-01-13] MEDS: traZODone 50 MG TABLET. PO SCH ×4 (08:07→19:43)
[2017-01-13] MEDS: risperiDONE 0.25 MG TABLET. PO SCH ×2 (08:07→19:42)
[2017-01-13] MEDS: THIAMINE 100 MG TABLET. PO SCH (08:07)
[2017-01-13] MEDS: OLANZapine 5 MG TABLET PO SCH ×3 (08:07→19:42)
[2017-01-13] MEDS: CHOLECALCIFEROL (VITAMIN D3) 50,000 UNIT CAPSULE PO SCH (08:09)
[2017-01-13 16:01] VITALS: BP 135/84
[2017-01-13] MEDS: MIRTAZAPINE 7.5 MG TABLET. PO SCH (19:42)
--- NOTE | 2017-01-13 19:43 | PDOC ---
Exam Faustino Demential Exam: Faustino Note: Please also refer to the separate dictated note~for this date of service dictated separately.~Patient seen individually. Discussed the patient with Nursing staff reviewed the chart.~Reviewed interim history and current functioning. Reviewed vital signs,~Labs/ Radiology~and current medications noted below. Continue current treatment with the changes noted in the dictated addendum note Assessment: Vital Signs: Vital Signs Date Time Temp Pulse Resp B/P (MAP) Pulse Ox O2 Delivery O2 Flow Rate FiO2 01/13/17 16:01 99.7 109 16 135/84 (101) 97 01/07/17 15:32 Room Air I&O Intake and Output 01/14/17 07:00 Intake Total 2120 ml Balance 2120 ml Intake Oral 2120 ml Current Medications: Meds: Current Medications Acetaminophen (Tylenol) 650 mg PRN Q6HRS PRN PO PAIN / TEMP Last administered on 01/12/17 13:38; Start 12/28/16 at 15:00 Multi-Ingredient Ointment (Analgesic [place]) 1 tessy PRN QID PRN TP MUSCLE PAIN; Start 12/28/16 at 15:00 Al Hydroxide/Mg Hydroxide (Mylanta Plus Xs) 15 ml PRN AFTMEALHC PRN PO DYSPEPSIA; Start 12/28/16 at 15:00 Magnesium Hydroxide (Milk Of Magnesia) 2,400 mg PRN QHS PRN PO CONSTIPATION; Start 12/28/16 at 15:00 Nicotine (Nicoderm Cq 21mg) 1 patch DAILY TD Last administered on 01/13/17 08: 07; Start 12/28/16 at 16:00; Stop 01/23/17 at 23:59 Aspirin (Ebenezer Aspirin) 325 mg PRN DAILY PRN PO PAIN; Start 12/28/16 at 18:30 Folic Acid (Folic Acid) 1 mg DAILY PO Last administered on 01/13/17 08:07; Start 12/29/16 at 09:00 Hydralazine HCl (Apresoline) 25 mg PRN Q6HRS PRN PO hypertension; Start at 18:15 Olanzapine (ZyPREXA) 2.5 mg TID PO Last administered on 01/13/17 12:59; Start 12/28/16 at 21:00 Olanzapine (ZyPREXA) 5 mg PRN Q8HRS PRN PO ANXIETY / AGITATION Last administered on 01/11/17 17:05; Start 12/28/16 at 18:15 Thiamine HCl (Vitamin B-1) 100 mg DAILY PO Last administered on 01/13/17 08:07 ; Start 12/29/16 at 09:00 Divalproex Sodium (Depakote Sprinkles) 125 mg BID@0900,1400 PO Last administered on 01/02/17 13:38; Start 12/29/16 at 09:00; Stop 01/02/17 at 16:48 ; Status DC Vitamin D (Vitamin D3) 50,000 unit WEEKLY PO Last administered on 01/13/17 08: 09; Start 12/30/16 at 09:00 Divalproex Sodium (Depakote Sprinkles) 250 mg BID@0900,1400 PO Last administered on 01/09/17 14:53; Start 01/03/17 at 09:00; Stop 01/09/17 at 18:16 ; Status DC Trazodone HCl (Desyrel) 50 mg QHS PO Last administered on 01/12/17 20:05; Start 01/02/17 at 21:00 Trazodone HCl (Desyrel) 50 mg QHS PRN PO INSOMNIA Last administered on 20:05; Start 01/02/17 at 16:45 Divalproex Sodium (Depakote Sprinkles) 375 mg BID@0900,1400 PO Last administered on 01/11/17 14:00; Start 01/10/17 at 09:00; Stop 01/11/17 at 18:30 ; Status DC Trazodone HCl (Desyrel) 12.5 mg TID@0900,1300,1700 PO Last administered on 17:33; Start 01/12/17 at 09:00 Mirtazapine (Remeron) 7.5 mg QHS PO Last administered on 01/12/17 20:05; Start 01/11/17 at 21:00 Risperidone (RisperDAL) 0.25 mg BID PO Last administered on 01/13/17 08:07; Start 01/12/17 at 21:00 Nicotine (Nicoderm Cq 14mg) 1 patch DAILY TD ; Start 01/24/17 at 09:00; Stop at 23:59 Nicotine (Nicoderm Cq 7mg) 1 patch DAILY TD ; Start 02/07/17 at 09:00; Stop 02/20/17 at 23:59 Active Scripts Active Reported Aspirin 325 Mg Tablet 325 Mg PO PRN DAILY PRN Thiamine Hcl 100 Mg Tablet 100 Mg PO DAILY Zyprexa (Olanzapine) 5 Mg Tablet 5 Mg PO PRN Q8HRS PRN Olanzapine 5 Mg Tablet 2.5 Mg PO TID Hydralazine Hcl 25 Mg Tablet 25 Mg PO PRN Q6HRS PRN Folic Acid 1 Mg Tablet 1 Mg PO DAILY Diagnosis: Problems: (1) Dementia associated with alcoholism (2) Anxiety disorder (3) Dementia associated with alcoholism with behavioral disturbance (4) Impulse control disorder (5) Wernicke-Korsakoff psychosis HEMAL PICKETT MD Jan 13, 2017 19:43
[2017-01-14] MEDS: ACETAMINOPHEN 325 MG TABLET PO PRN (03:20)
--- NOTE | 2017-01-14 04:32 | PN ---
DATE: 01/12/2017 This late entry 01/12/2017 covers elements not covered in my initial note of 01/12/2017. SUBJECTIVE: The patient was staffed at a treatment team meeting morning of 01/12/2017, seen individually evening of 01/12/2017. He has had a better day on 01/12/2017, still confused but not angry, irritable, labile as much as he was the day before. Still delusional, anxious, restless, disorganized. REVIEW OF SYSTEMS: No CV, , pulmonary, eye, ENT system symptoms on review. MENTAL STATUS EXAM: Oriented to himself. Insight, judgment, recent and remote memory, attention, concentration, fund of knowledge poor, consistent with his diagnosis mentioned in my initial note. PLAN: Start Risperdal 0.25 mg twice a day. Continue trazodone 12.5 mg 3 times a day, 50 mg at bedtime plus p.r.n., Remeron 7.5 mg at bedtime, Zyprexa p.r.n. and 2.5 mg 3 times a day. Make further adjustments as clinically indicated. Depakote was stopped. MAN Tanya PICKETT MD DR: JUAN PABLO/anthony JOB#: [id number] / [id number]
[2017-01-14 05:42] VITALS: BP 114/70
[2017-01-14] MEDS: NICOTINE 21MG PATCH. TD SCH (07:26)
[2017-01-14] MEDS: traZODone 50 MG TABLET. PO SCH ×4 (07:27→20:50)
[2017-01-14] MEDS: THIAMINE 100 MG TABLET. PO SCH (07:27)
[2017-01-14] MEDS: risperiDONE 0.25 MG TABLET. PO SCH ×2 (07:28→20:49)
[2017-01-14] MEDS: FOLIC ACID 1 MG TABLET PO SCH (07:28)
[2017-01-14] MEDS: OLANZapine 5 MG TABLET PO SCH ×3 (07:28→20:49)
[2017-01-14 15:59] VITALS: BP 126/81
[2017-01-14] MEDS: MIRTAZAPINE 7.5 MG TABLET. PO SCH (20:49)
--- NOTE | 2017-01-14 23:16 | PDOC ---
Exam Faustino Demential Exam: Faustino Note: Please also refer to the separate dictated note~for this date of service dictated separately.~Patient seen individually. Discussed the patient with Nursing staff reviewed the chart.~Reviewed interim history and current functioning. Reviewed vital signs,~Labs/ Radiology~and current medications noted below. Continue current treatment with the changes noted in the dictated addendum note Assessment: Vital Signs: Vital Signs Date Time Temp Pulse Resp B/P (MAP) Pulse Ox O2 Delivery O2 Flow Rate FiO2 01/14/17 15:59 100.3 119 20 126/81 (96) 96 I&O Intake and Output 01/15/17 06:59 Intake Total 1680 ml Balance 1680 ml Intake Oral 1680 ml # Voids 1 Current Medications: Meds: Current Medications Acetaminophen (Tylenol) 650 mg PRN Q6HRS PRN PO PAIN / TEMP Last administered on 01/14/17 03:20; Start 12/28/16 at 15:00 Multi-Ingredient Ointment (Analgesic [place]) 1 tessy PRN QID PRN TP MUSCLE PAIN; Start 12/28/16 at 15:00 Al Hydroxide/Mg Hydroxide (Mylanta Plus Xs) 15 ml PRN AFTMEALHC PRN PO DYSPEPSIA; Start 12/28/16 at 15:00 Magnesium Hydroxide (Milk Of Magnesia) 2,400 mg PRN QHS PRN PO CONSTIPATION; Start 12/28/16 at 15:00 Nicotine (Nicoderm Cq 21mg) 1 patch DAILY TD Last administered on 01/14/17 07: 26; Start 12/28/16 at 16:00; Stop 01/23/17 at 23:59 Aspirin (Ebenezer Aspirin) 325 mg PRN DAILY PRN PO PAIN; Start 12/28/16 at 18:30 Folic Acid (Folic Acid) 1 mg DAILY PO Last administered on 01/14/17 07:28; Start 12/29/16 at 09:00 Hydralazine HCl (Apresoline) 25 mg PRN Q6HRS PRN PO hypertension; Start at 18:15 Olanzapine (ZyPREXA) 2.5 mg TID PO Last administered on 01/14/17 20:49; Start 12/28/16 at 21:00 Olanzapine (ZyPREXA) 5 mg PRN Q8HRS PRN PO ANXIETY / AGITATION Last administered on 01/11/17 17:05; Start 12/28/16 at 18:15 Thiamine HCl (Vitamin B-1) 100 mg DAILY PO Last administered on 01/14/17 07:27 ; Start 12/29/16 at 09:00 Divalproex Sodium (Depakote Sprinkles) 125 mg BID@0900,1400 PO Last administered on 01/02/17 13:38; Start 12/29/16 at 09:00; Stop 01/02/17 at 16:48 ; Status DC Vitamin D (Vitamin D3) 50,000 unit WEEKLY PO Last administered on 01/13/17 08: 09; Start 12/30/16 at 09:00 Divalproex Sodium (Depakote Sprinkles) 250 mg BID@0900,1400 PO Last administered on 01/09/17 14:53; Start 01/03/17 at 09:00; Stop 01/09/17 at 18:16 ; Status DC Trazodone HCl (Desyrel) 50 mg QHS PO Last administered on 01/14/17 20:50; Start 01/02/17 at 21:00 Trazodone HCl (Desyrel) 50 mg QHS PRN PO INSOMNIA Last administered on 20:05; Start 01/02/17 at 16:45 Divalproex Sodium (Depakote Sprinkles) 375 mg BID@0900,1400 PO Last administered on 01/11/17 14:00; Start 01/10/17 at 09:00; Stop 01/11/17 at 18:30 ; Status DC Trazodone HCl (Desyrel) 12.5 mg TID@0900,1300,1700 PO Last administered on 18:33; Start 01/12/17 at 09:00 Mirtazapine (Remeron) 7.5 mg QHS PO Last administered on 01/14/17 20:49; Start 01/11/17 at 21:00 Risperidone (RisperDAL) 0.25 mg BID PO Last administered on 01/14/17 20:49; Start 01/12/17 at 21:00 Nicotine (Nicoderm Cq 14mg) 1 patch DAILY TD ; Start 01/24/17 at 09:00; Stop at 23:59 Nicotine (Nicoderm Cq 7mg) 1 patch DAILY TD ; Start 02/07/17 at 09:00; Stop 02/20/17 at 23:59 Active Scripts Active Reported Aspirin 325 Mg Tablet 325 Mg PO PRN DAILY PRN Thiamine Hcl 100 Mg Tablet 100 Mg PO DAILY Zyprexa (Olanzapine) 5 Mg Tablet 5 Mg PO PRN Q8HRS PRN Olanzapine 5 Mg Tablet 2.5 Mg PO TID Hydralazine Hcl 25 Mg Tablet 25 Mg PO PRN Q6HRS PRN Folic Acid 1 Mg Tablet 1 Mg PO DAILY Diagnosis: Problems: (1) Dementia associated with alcoholism (2) Anxiety disorder (3) Dementia associated with alcoholism with behavioral disturbance (4) Impulse control disorder (5) Wernicke-Korsakoff psychosis HEMAL PICKETT MD Jan 14, 2017 23:16
--- NOTE | 2017-01-15 03:14 | PN ---
DATE: 01/13/2017 PSYCHIATRIC PROGRESS NOTE This is a late entry 01/13/2017 covers elements not covered in my initial note of 01/13/2017. I met with the patient evening of 01/13/2017. He has done better on 01/13/2017, less agitated, but confused, confabulating, inconsistent with his diagnosis, dragging himself along the wall on his way back from supper in the evening, more disorganized late in the evening. REVIEW OF SYSTEMS: No CV, , pulmonary, eye, ENT system symptoms on review. Reliability poor. MENTAL STATUS EXAM: Oriented to himself. Insight, judgment, recent and remote memory, attention, concentration, fund of knowledge poor, consistent with his diagnosis mentioned in my initial note. PLAN: Continue current psychotropics. Reviewed and drug interactions. Risk/benefit ratio favors no further change at this time. MAN Tanya PICKETT MD DR: JUAN PABLO/anthony JOB#: [id number] / [id number]
[2017-01-15] MEDS: traZODone 50 MG TABLET. PO SCH ×4 (07:37→19:58)
[2017-01-15] MEDS: NICOTINE 21MG PATCH. TD SCH (07:37)
[2017-01-15] MEDS: THIAMINE 100 MG TABLET. PO SCH (07:37)
[2017-01-15] MEDS: OLANZapine 5 MG TABLET PO SCH ×3 (07:38→19:59)
[2017-01-15] MEDS: FOLIC ACID 1 MG TABLET PO SCH (07:38)
[2017-01-15] MEDS: risperiDONE 0.25 MG TABLET. PO SCH ×2 (07:38→19:58)
[2017-01-15 15:43] VITALS: BP 117/76
[2017-01-15] MEDS: MIRTAZAPINE 7.5 MG TABLET. PO SCH (19:58)
--- NOTE | 2017-01-15 21:45 | PDOC ---
Exam Faustino Demential Exam: Faustino Note: Please also refer to the separate dictated note~for this date of service dictated separately.~Patient seen individually. Discussed the patient with Nursing staff reviewed the chart.~Reviewed interim history and current functioning. Reviewed vital signs,~Labs/ Radiology~and current medications noted below. Continue current treatment with the changes noted in the dictated addendum note Assessment: Vital Signs: Vital Signs Date Time Temp Pulse Resp B/P (MAP) Pulse Ox O2 Delivery O2 Flow Rate FiO2 01/15/17 15:43 100.4 105 20 117/76 (90) 95 I&O Intake and Output 01/16/17 06:59 Intake Total 920 ml Balance 920 ml Intake Oral 920 ml # Bowel Movements 1 Current Medications: Meds: Current Medications Acetaminophen (Tylenol) 650 mg PRN Q6HRS PRN PO PAIN / TEMP Last administered on 01/14/17 03:20; Start 12/28/16 at 15:00 Multi-Ingredient Ointment (Analgesic [place]) 1 tessy PRN QID PRN TP MUSCLE PAIN; Start 12/28/16 at 15:00 Al Hydroxide/Mg Hydroxide (Mylanta Plus Xs) 15 ml PRN AFTMEALHC PRN PO DYSPEPSIA; Start 12/28/16 at 15:00 Magnesium Hydroxide (Milk Of Magnesia) 2,400 mg PRN QHS PRN PO CONSTIPATION; Start 12/28/16 at 15:00 Nicotine (Nicoderm Cq 21mg) 1 patch DAILY TD Last administered on 01/15/17 07: 37; Start 12/28/16 at 16:00; Stop 01/15/17 at 07:45; Status DC Aspirin (Ebenezer Aspirin) 325 mg PRN DAILY PRN PO PAIN; Start 12/28/16 at 18:30 Folic Acid (Folic Acid) 1 mg DAILY PO Last administered on 01/15/17 07:38; Start 12/29/16 at 09:00 Hydralazine HCl (Apresoline) 25 mg PRN Q6HRS PRN PO hypertension; Start at 18:15 Olanzapine (ZyPREXA) 2.5 mg TID PO Last administered on 01/15/17 19:59; Start 12/28/16 at 21:00 Olanzapine (ZyPREXA) 5 mg PRN Q8HRS PRN PO ANXIETY / AGITATION Last administered on 01/11/17 17:05; Start 12/28/16 at 18:15 Thiamine HCl (Vitamin B-1) 100 mg DAILY PO Last administered on 01/15/17 07:37 ; Start 12/29/16 at 09:00 Divalproex Sodium (Depakote Sprinkles) 125 mg BID@0900,1400 PO Last administered on 01/02/17 13:38; Start 12/29/16 at 09:00; Stop 01/02/17 at 16:48 ; Status DC Vitamin D (Vitamin D3) 50,000 unit WEEKLY PO Last administered on 01/13/17 08: 09; Start 12/30/16 at 09:00 Divalproex Sodium (Depakote Sprinkles) 250 mg BID@0900,1400 PO Last administered on 01/09/17 14:53; Start 01/03/17 at 09:00; Stop 01/09/17 at 18:16 ; Status DC Trazodone HCl (Desyrel) 50 mg QHS PO Last administered on 01/15/17 19:58; Start 01/02/17 at 21:00 Trazodone HCl (Desyrel) 50 mg QHS PRN PO INSOMNIA Last administered on 20:05; Start 01/02/17 at 16:45 Divalproex Sodium (Depakote Sprinkles) 375 mg BID@0900,1400 PO Last administered on 01/11/17 14:00; Start 01/10/17 at 09:00; Stop 01/11/17 at 18:30 ; Status DC Trazodone HCl (Desyrel) 12.5 mg TID@0900,1300,1700 PO Last administered on 17:52; Start 01/12/17 at 09:00 Mirtazapine (Remeron) 7.5 mg QHS PO Last administered on 01/15/17 19:58; Start 01/11/17 at 21:00 Risperidone (RisperDAL) 0.25 mg BID PO Last administered on 01/15/17 19:58; Start 01/12/17 at 21:00 Nicotine (Nicoderm Cq 14mg) 1 patch DAILY TD ; Start 01/24/17 at 09:00; Stop 04/30 at 09:00; Status DC Nicotine (Nicoderm Cq 7mg) 1 patch DAILY TD ; Start 02/07/17 at 09:00; Stop at 09:00; Status DC Nicotine (Nicoderm Cq 14mg) 1 patch DAILY TD ; Start 01/16/17 at 09:00 Nicotine (Nicoderm Cq 7mg) 1 patch DAILY TD ; Start 01/23/17 at 09:00; Stop at 08:00 Active Scripts Active Reported Aspirin 325 Mg Tablet 325 Mg PO PRN DAILY PRN Thiamine Hcl 100 Mg Tablet 100 Mg PO DAILY Zyprexa (Olanzapine) 5 Mg Tablet 5 Mg PO PRN Q8HRS PRN Olanzapine 5 Mg Tablet 2.5 Mg PO TID Hydralazine Hcl 25 Mg Tablet 25 Mg PO PRN Q6HRS PRN Folic Acid 1 Mg Tablet 1 Mg PO DAILY Diagnosis: Problems: (1) Dementia associated with alcoholism (2) Anxiety disorder (3) Dementia associated with alcoholism with behavioral disturbance (4) Impulse control disorder (5) Wernicke-Korsakoff psychosis HEMAL PICKETT MD Jan 15, 2017 21:45
--- NOTE | 2017-01-16 00:05 | PN ---
DATE: 01/14/2017 This late entry 01/14 covers elements not covered in my initial note. I met with the patient evening of 01/14. The patient remains confused and intrusive, but redirectable, more lucid at times, compliant with medications. REVIEW OF SYSTEMS: No CV, , pulmonary, eye, ENT system symptoms on review. MENTAL STATUS EXAM: Oriented to himself. Insight, judgment, recent and remote memory, attention, concentration, fund of knowledge poor, consistent with his diagnosis mentioned in my initial note. PLAN: Continue current psychotropics, reviewed drug interactions, risk/benefit ratio favors no further change at this time. Current psychotropics mentioned in my initial note. MAN Tanya PICKETT MD DR: JUAN PABLO/anthony JOB#: [id number] / [id number]
[2017-01-16 06:22] VITALS: BP 112/64
[2017-01-16] MEDS: THIAMINE 100 MG TABLET. PO SCH (09:12)
[2017-01-16] MEDS: traZODone 50 MG TABLET. PO SCH ×4 (09:12→20:29)
[2017-01-16] MEDS: FOLIC ACID 1 MG TABLET PO SCH (09:13)
[2017-01-16] MEDS: risperiDONE 0.25 MG TABLET. PO SCH ×2 (09:13→20:29)
[2017-01-16] MEDS: OLANZapine 5 MG TABLET PO SCH ×3 (09:13→20:29)
[2017-01-16] MEDS: NICOTINE 14MG PATCH. TD SCH (09:15)
[2017-01-16 15:42] VITALS: BP 143/79
[2017-01-16] MEDS: MIRTAZAPINE 7.5 MG TABLET. PO SCH (20:29)
--- NOTE | 2017-01-16 22:40 | PDOC ---
Exam Faustino Demential Exam: Faustino Note: Please also refer to the separate dictated note~for this date of service dictated separately.~Patient seen individually. Discussed the patient with Nursing staff reviewed the chart.~Reviewed interim history and current functioning. Reviewed vital signs,~Labs/ Radiology~and current medications noted below. Continue current treatment with the changes noted in the dictated addendum note Assessment: Vital Signs: Vital Signs Date Time Temp Pulse Resp B/P (MAP) Pulse Ox O2 Delivery O2 Flow Rate FiO2 01/16/17 15:42 98.9 94 18 143/79 (100) 95 I&O Intake and Output 01/17/17 06:59 Intake Total 2040 ml Balance 2040 ml Intake Oral 2040 ml # Voids 2 Current Medications: Meds: Current Medications Acetaminophen (Tylenol) 650 mg PRN Q6HRS PRN PO PAIN / TEMP Last administered on 01/14/17 03:20; Start 12/28/16 at 15:00 Multi-Ingredient Ointment (Analgesic [place]) 1 tessy PRN QID PRN TP MUSCLE PAIN; Start 12/28/16 at 15:00 Al Hydroxide/Mg Hydroxide (Mylanta Plus Xs) 15 ml PRN AFTMEALHC PRN PO DYSPEPSIA; Start 12/28/16 at 15:00 Magnesium Hydroxide (Milk Of Magnesia) 2,400 mg PRN QHS PRN PO CONSTIPATION; Start 12/28/16 at 15:00 Nicotine (Nicoderm Cq 21mg) 1 patch DAILY TD Last administered on 01/15/17 07: 37; Start 12/28/16 at 16:00; Stop 01/15/17 at 07:45; Status DC Aspirin (Ebenezer Aspirin) 325 mg PRN DAILY PRN PO PAIN; Start 12/28/16 at 18:30 Folic Acid (Folic Acid) 1 mg DAILY PO Last administered on 01/16/17 09:13; Start 12/29/16 at 09:00 Hydralazine HCl (Apresoline) 25 mg PRN Q6HRS PRN PO hypertension; Start at 18:15 Olanzapine (ZyPREXA) 2.5 mg TID PO Last administered on 01/16/17 20:29; Start 12/28/16 at 21:00 Olanzapine (ZyPREXA) 5 mg PRN Q8HRS PRN PO ANXIETY / AGITATION Last administered on 01/11/17 17:05; Start 12/28/16 at 18:15 Thiamine HCl (Vitamin B-1) 100 mg DAILY PO Last administered on 01/16/17 09:12 ; Start 12/29/16 at 09:00 Divalproex Sodium (Depakote Sprinkles) 125 mg BID@0900,1400 PO Last administered on 01/02/17 13:38; Start 12/29/16 at 09:00; Stop 01/02/17 at 16:48 ; Status DC Vitamin D (Vitamin D3) 50,000 unit WEEKLY PO Last administered on 01/13/17 08: 09; Start 12/30/16 at 09:00 Divalproex Sodium (Depakote Sprinkles) 250 mg BID@0900,1400 PO Last administered on 01/09/17 14:53; Start 01/03/17 at 09:00; Stop 01/09/17 at 18:16 ; Status DC Trazodone HCl (Desyrel) 50 mg QHS PO Last administered on 01/16/17 20:29; Start 01/02/17 at 21:00 Trazodone HCl (Desyrel) 50 mg QHS PRN PO INSOMNIA Last administered on 20:05; Start 01/02/17 at 16:45 Divalproex Sodium (Depakote Sprinkles) 375 mg BID@0900,1400 PO Last administered on 01/11/17 14:00; Start 01/10/17 at 09:00; Stop 01/11/17 at 18:30 ; Status DC Trazodone HCl (Desyrel) 12.5 mg TID@0900,1300,1700 PO Last administered on 17:24; Start 01/12/17 at 09:00 Mirtazapine (Remeron) 7.5 mg QHS PO Last administered on 01/16/17 20:29; Start 01/11/17 at 21:00 Risperidone (RisperDAL) 0.25 mg BID PO Last administered on 01/16/17 20:29; Start 01/12/17 at 21:00 Nicotine (Nicoderm Cq 14mg) 1 patch DAILY TD ; Start 01/24/17 at 09:00; Stop 04/30 at 09:00; Status DC Nicotine (Nicoderm Cq 7mg) 1 patch DAILY TD ; Start 02/07/17 at 09:00; Stop at 09:00; Status DC Nicotine (Nicoderm Cq 14mg) 1 patch DAILY TD Last administered on 01/16/17t 09: 15; Start 01/16/17 at 09:00 Nicotine (Nicoderm Cq 7mg) 1 patch DAILY TD ; Start 01/23/17 at 09:00; Stop at 08:00 Active Scripts Active Reported Aspirin 325 Mg Tablet 325 Mg PO PRN DAILY PRN Thiamine Hcl 100 Mg Tablet 100 Mg PO DAILY Zyprexa (Olanzapine) 5 Mg Tablet 5 Mg PO PRN Q8HRS PRN Olanzapine 5 Mg Tablet 2.5 Mg PO TID Hydralazine Hcl 25 Mg Tablet 25 Mg PO PRN Q6HRS PRN Folic Acid 1 Mg Tablet 1 Mg PO DAILY Diagnosis: Problems: (1) Dementia associated with alcoholism (2) Anxiety disorder (3) Dementia associated with alcoholism with behavioral disturbance (4) Impulse control disorder (5) Wernicke-Korsakoff psychosis HEMAL PICKETT MD Jan 16, 2017 22:40
--- NOTE | 2017-01-16 23:20 | PN ---
DATE: 01/15/2017 This late entry, 01/15/2017, covers elements not covered in my initial note of 01/15/2017. Met with the patient evening of 01/15/2017. The patient remains confused. Verbalizations are remarkable for his confabulation. He seems to remember a few things better than before including the fall of one of the other demented patients the day previously. REVIEW OF SYSTEMS: No CV, , pulmonary, eye, ENT system symptoms on review. Reliability poor. MENTAL STATUS EXAM: Oriented to himself. Insight, judgment, recent and remote memory, attention, concentration, fund of knowledge poor, consistent with his diagnosis mentioned in my initial note. LABORATORY DATA: Reviewed. PLAN: Continue current psychotropics mentioned in my initial note. Reviewed drug interactions. Risk/benefit ratio favors no further change. MAN Tanya PICKETT MD DR: JUAN PABLO/anthony JOB#: [id number] / [id number]
[2017-01-17 06:29] VITALS: BP 124/72
[2017-01-17] MEDS: OLANZapine 5 MG TABLET PO SCH ×3 (08:10→19:26)
[2017-01-17] MEDS: risperiDONE 0.25 MG TABLET. PO SCH ×2 (08:11→19:25)
[2017-01-17] MEDS: THIAMINE 100 MG TABLET. PO SCH (08:11)
[2017-01-17] MEDS: FOLIC ACID 1 MG TABLET PO SCH (08:11)
[2017-01-17] MEDS: NICOTINE 14MG PATCH. TD SCH (08:12)
[2017-01-17] MEDS: traZODone 50 MG TABLET. PO SCH ×4 (08:12→19:25)
[2017-01-17 17:26] VITALS: BP 135/88
[2017-01-17] MEDS: MIRTAZAPINE 7.5 MG TABLET. PO SCH (19:25)
--- NOTE | 2017-01-17 19:28 | PDOC ---
Exam Faustino Demential Exam: Faustino Note: Please also refer to the separate dictated note~for this date of service dictated separately.~Patient seen individually. Discussed the patient with Nursing staff reviewed the chart.~Reviewed interim history and current functioning. Reviewed vital signs,~Labs/ Radiology~and current medications noted below. Continue current treatment with the changes noted in the dictated addendum note Assessment: Vital Signs: Vital Signs Date Time Temp Pulse Resp B/P (MAP) Pulse Ox O2 Delivery O2 Flow Rate FiO2 01/17/17 17:26 98.4 92 18 135/88 (104) 97 Room Air I&O Intake and Output 01/18/17 07:00 Intake Total 1680 ml Balance 1680 ml Intake Oral 1680 ml # Bowel Movements 1 Labs: Laboratory Tests Test 01/17/17 07:28 Glucose (Fingerstick) 104 mg/dL (70-99) H Current Medications: Meds: Current Medications Acetaminophen (Tylenol) 650 mg PRN Q6HRS PRN PO PAIN / TEMP Last administered on 01/14/17 03:20; Start 12/28/16 at 15:00 Multi-Ingredient Ointment (Analgesic [place]) 1 tessy PRN QID PRN TP MUSCLE PAIN; Start 12/28/16 at 15:00 Al Hydroxide/Mg Hydroxide (Mylanta Plus Xs) 15 ml PRN AFTMEALHC PRN PO DYSPEPSIA; Start 12/28/16 at 15:00 Magnesium Hydroxide (Milk Of Magnesia) 2,400 mg PRN QHS PRN PO CONSTIPATION; Start 12/28/16 at 15:00 Nicotine (Nicoderm Cq 21mg) 1 patch DAILY TD Last administered on 01/15/17 07: 37; Start 12/28/16 at 16:00; Stop 01/15/17 at 07:45; Status DC Aspirin (Ebenezer Aspirin) 325 mg PRN DAILY PRN PO PAIN; Start 12/28/16 at 18:30 Folic Acid (Folic Acid) 1 mg DAILY PO Last administered on 01/17/17 08:11; Start 12/29/16 at 09:00 Hydralazine HCl (Apresoline) 25 mg PRN Q6HRS PRN PO hypertension; Start at 18:15 Olanzapine (ZyPREXA) 2.5 mg TID PO Last administered on 01/17/17 19:26; Start 12/28/16 at 21:00 Olanzapine (ZyPREXA) 5 mg PRN Q8HRS PRN PO ANXIETY / AGITATION Last administered on 01/11/17 17:05; Start 12/28/16 at 18:15 Thiamine HCl (Vitamin B-1) 100 mg DAILY PO Last administered on 01/17/17 08:11 ; Start 12/29/16 at 09:00 Divalproex Sodium (Depakote Sprinkles) 125 mg BID@0900,1400 PO Last administered on 01/02/17 13:38; Start 12/29/16 at 09:00; Stop 01/02/17 at 16:48 ; Status DC Vitamin D (Vitamin D3) 50,000 unit WEEKLY PO Last administered on 01/13/17 08: 09; Start 12/30/16 at 09:00 Divalproex Sodium (Depakote Sprinkles) 250 mg BID@0900,1400 PO Last administered on 01/09/17 14:53; Start 01/03/17 at 09:00; Stop 01/09/17 at 18:16 ; Status DC Trazodone HCl (Desyrel) 50 mg QHS PO Last administered on 01/17/17 19:25; Start 01/02/17 at 21:00 Trazodone HCl (Desyrel) 50 mg QHS PRN PO INSOMNIA Last administered on 20:05; Start 01/02/17 at 16:45 Divalproex Sodium (Depakote Sprinkles) 375 mg BID@0900,1400 PO Last administered on 01/11/17 14:00; Start 01/10/17 at 09:00; Stop 01/11/17 at 18:30 ; Status DC Trazodone HCl (Desyrel) 12.5 mg TID@0900,1300,1700 PO Last administered on 16:51; Start 01/12/17 at 09:00 Mirtazapine (Remeron) 7.5 mg QHS PO Last administered on 01/17/17 19:25; Start 01/11/17 at 21:00 Risperidone (RisperDAL) 0.25 mg BID PO Last administered on 01/17/17 19:25; Start 01/12/17 at 21:00 Nicotine (Nicoderm Cq 14mg) 1 patch DAILY TD ; Start 01/24/17 at 09:00; Stop 04/30 at 09:00; Status DC Nicotine (Nicoderm Cq 7mg) 1 patch DAILY TD ; Start 02/07/17 at 09:00; Stop at 09:00; Status DC Nicotine (Nicoderm Cq 14mg) 1 patch DAILY TD Last administered on 01/17/17t 08: 12; Start 01/16/17 at 09:00; Stop 01/22/17 at 09:01 Nicotine (Nicoderm Cq 7mg) 1 patch DAILY TD ; Start 01/23/17 at 09:00; Stop at 08:00 Prenat Multivit/ User Experience Architect/Iron/Folic Ac (Multivitamin ) 1 tab DAILY PO ; Start 01/18/17 at 09:00 Cyanocobalamin (Vitamin B-12) 250 mcg DAILY PO ; Start 01/18/17 at 09:00 Active Scripts Active Reported Aspirin 325 Mg Tablet 325 Mg PO PRN DAILY PRN Thiamine Hcl 100 Mg Tablet 100 Mg PO DAILY Zyprexa (Olanzapine) 5 Mg Tablet 5 Mg PO PRN Q8HRS PRN Olanzapine 5 Mg Tablet 2.5 Mg PO TID Hydralazine Hcl 25 Mg Tablet 25 Mg PO PRN Q6HRS PRN Folic Acid 1 Mg Tablet 1 Mg PO DAILY Diagnosis: Problems: (1) Dementia associated with alcoholism (2) Anxiety disorder (3) Dementia associated with alcoholism with behavioral disturbance (4) Impulse control disorder (5) Wernicke-Korsakoff psychosis HEMAL PICKETT MD Jan 17, 2017 19:28
--- NOTE | 2017-01-18 01:31 | PN ---
DATE: 01/16/2017 PSYCHIATRIC PROGRESS NOTE This is a late entry for 01/16/2017, covers elements not covered in my initial note of 01/16/2017. SUBJECTIVE: Overall per nursing report, the patient is somewhat delusional, stated he drove in last night, felt the year is 2001 and that he is making an antebellum theme park by dismantling an antebellum house. This is consistent with his Korsakoff psychosis. Slept 6 hours previous evening. REVIEW OF SYSTEMS: No CV, , pulmonary, eye, ENT system symptoms on review. Reliability poor. MENTAL STATUS EXAM: Oriented to himself. Insight, judgment, recent and remote memory, attention, concentration, fund of knowledge poor, consistent with his diagnosis mentioned in my initial note. PLAN: Continue current psychotropics mentioned in my initial note. Adjust further if clinically indicated. MAN Tanya PICKETT MD DR: JUAN PABLO/anthony JOB#: [id number] / [id number]
[2017-01-18 06:03] VITALS: BP 113/72
[2017-01-18] MEDS: NICOTINE 14MG PATCH. TD SCH (07:40)
[2017-01-18] MEDS: OLANZapine 5 MG TABLET PO SCH ×3 (07:41→19:59)
[2017-01-18] MEDS: THIAMINE 100 MG TABLET. PO SCH (07:42)
[2017-01-18] MEDS: traZODone 50 MG TABLET. PO SCH ×4 (07:42→19:58)
[2017-01-18] MEDS: FOLIC ACID 1 MG TABLET PO SCH (07:42)
[2017-01-18] MEDS: risperiDONE 0.25 MG TABLET. PO SCH ×2 (07:43→19:58)
[2017-01-18] MEDS: PRENATAL MULTIVITAMIN TABLET. PO SCH (07:45)
[2017-01-18] MEDS: CYANOCOBALAMIN (VITAMIN B-12) 250 MCG TABLET PO SCH (07:46)
[2017-01-18 07:58] LABS: BASO # 0.1 x10^3/uL (0.0-0.2); BASO % 1 % (0-3); EOS # 1.5 x10^3/uL (0.0-0.7); EOS % 14 % (0-3); HEMATOCRIT 36.4 % (39.0-53.0); HEMOGLOBIN 12.1 g/dL (13.0-17.5); LYMPH # 1.5 x10^3/uL (1.0-4.8); LYMPH % 14 % (24-48); MEAN CORPUSCULAR HEMOGLOBIN 32 pg (25-35); MEAN CORPUSCULAR HGB CONC 33 g/dL (31-37); MEAN CORPUSCULAR VOLUME 97 fL (79-100); MONO # 1.4 x10^3/uL (0.0-1.1); MONO % 13 % (0-9); NEUT # 6.5 x10^3uL (1.8-7.7); NEUT % 59 % (31-73); PLATELET COUNT 322 x10^3/uL (140-400); RED BLOOD COUNT 3.76 x10^6/uL (4.30-5.70); WHITE BLOOD COUNT 11.1 x10^3/uL (4.0-11.0)
[2017-01-18 08:21] LABS: ALBUMIN 2.5 g/dL (3.4-5.0); ALBUMIN/GLOBULIN RATIO 0.6 (1.0-1.7); CALCIUM 9.1 mg/dL (8.5-10.1); CREATININE 1.1 mg/dL (0.7-1.3); GFR 67.2; POTASSIUM 4.1 mmol/L (3.5-5.1); TOTAL BILIRUBIN 0.3 mg/dL (0.2-1.0); TOTAL PROTEIN 6.7 g/dL (6.4-8.2)
[2017-01-18 16:18] VITALS: BP 130/79
--- NOTE | 2017-01-18 19:52 | PDOC ---
Exam Faustino Demential Exam: Faustino Note: Please also refer to the separate dictated note~for this date of service dictated separately.~Patient seen individually. Discussed the patient with Nursing staff reviewed the chart.~Reviewed interim history and current functioning. Reviewed vital signs,~Labs/ Radiology~and current medications noted below. Continue current treatment with the changes noted in the dictated addendum note Assessment: Vital Signs: Vital Signs Date Time Temp Pulse Resp B/P (MAP) Pulse Ox O2 Delivery O2 Flow Rate FiO2 01/18/17 16:18 98.4 96 20 130/79 (96) 98 01/17/17 17:26 Room Air I&O Intake and Output 01/19/17 07:00 Intake Total 1680 ml Balance 1680 ml Intake Oral 1680 ml Labs: Laboratory Tests Test 01/18/17 07:11 01/18/17 07:44 White Blood Count 11.1 x10^3/uL (4.0-11.0) H Red Blood Count 3.76 x10^6/uL (4.30-5.70) L Hemoglobin 12.1 g/dL (13.0-17.5) L Hematocrit 36.4 % (39.0-53.0) L Mean Corpuscular Volume 97 fL (79-100) Mean Corpuscular Hemoglobin 32 pg (25-35) Mean Corpuscular Hemoglobin Concent 33 g/dL (31-37) Red Cell Distribution Width 14.0 % (11.5-14.5) Platelet Count 322 x10^3/uL (140-400) Neutrophils (%) (Auto) 59 % (31-73) Lymphocytes (%) (Auto) 14 % (24-48) L Monocytes (%) (Auto) 13 % (0-9) H Eosinophils (%) (Auto) 14 % (0-3) H Basophils (%) (Auto) 1 % (0-3) Neutrophils # (Auto) 6.5 x10^3uL (1.8-7.7) Lymphocytes # (Auto) 1.5 x10^3/uL (1.0-4.8) Monocytes # (Auto) 1.4 x10^3/uL (0.0-1.1) H Eosinophils # (Auto) 1.5 x10^3/uL (0.0-0.7) H Basophils # (Auto) 0.1 x10^3/uL (0.0-0.2) Sodium Level 139 mmol/L (136-145) Potassium Level 4.1 mmol/L (3.5-5.1) Chloride Level 103 mmol/L (98-107) Carbon Dioxide Level 28 mmol/L (21-32) Anion Gap 8 (6-14) Blood Urea Nitrogen 16 mg/dL (8-26) Creatinine 1.1 mg/dL (0.7-1.3) Estimated GFR (Cockcroft-Gault) 67.2 BUN/Creatinine Ratio 15 (6-20) Glucose Level 93 mg/dL (70-99) Calcium Level 9.1 mg/dL (8.5-10.1) Total Bilirubin 0.3 mg/dL (0.2-1.0) Aspartate Amino Transferase (AST) 19 U/L (15-37) Alanine Aminotransferase (ALT) 30 U/L (16-63) Alkaline Phosphatase 76 U/L (46-116) Total Protein 6.7 g/dL (6.4-8.2) Albumin 2.5 g/dL (3.4-5.0) L Albumin/Globulin Ratio 0.6 (1.0-1.7) L Glucose (Fingerstick) 88 mg/dL (70-99) Current Medications: Meds: Current Medications Acetaminophen (Tylenol) 650 mg PRN Q6HRS PRN PO PAIN / TEMP Last administered on 01/14/17 03:20; Start 12/28/16 at 15:00 Multi-Ingredient Ointment (Analgesic [place]) 1 tessy PRN QID PRN TP MUSCLE PAIN; Start 12/28/16 at 15:00 Al Hydroxide/Mg Hydroxide (Mylanta Plus Xs) 15 ml PRN AFTMEALHC PRN PO DYSPEPSIA; Start 12/28/16 at 15:00 Magnesium Hydroxide (Milk Of Magnesia) 2,400 mg PRN QHS PRN PO CONSTIPATION; Start 12/28/16 at 15:00 Nicotine (Nicoderm Cq 21mg) 1 patch DAILY TD Last administered on 01/15/17 07: 37; Start 12/28/16 at 16:00; Stop 01/15/17 at 07:45; Status DC Aspirin (Ebenezer Aspirin) 325 mg PRN DAILY PRN PO PAIN; Start 12/28/16 at 18:30 Folic Acid (Folic Acid) 1 mg DAILY PO Last administered on 01/18/17 07:42; Start 12/29/16 at 09:00 Hydralazine HCl (Apresoline) 25 mg PRN Q6HRS PRN PO hypertension; Start at 18:15 Olanzapine (ZyPREXA) 2.5 mg TID PO Last administered on 01/18/17 13:32; Start 12/28/16 at 21:00 Olanzapine (ZyPREXA) 5 mg PRN Q8HRS PRN PO ANXIETY / AGITATION Last administered on 01/11/17 17:05; Start 12/28/16 at 18:15 Thiamine HCl (Vitamin B-1) 100 mg DAILY PO Last administered on 01/18/17 07:42 ; Start 12/29/16 at 09:00 Divalproex Sodium (Depakote Sprinkles) 125 mg BID@0900,1400 PO Last administered on 01/02/17 13:38; Start 12/29/16 at 09:00; Stop 01/02/17 at 16:48 ; Status DC Vitamin D (Vitamin D3) 50,000 unit WEEKLY PO Last administered on 01/13/17 08: 09; Start 12/30/16 at 09:00 Divalproex Sodium (Depakote Sprinkles) 250 mg BID@0900,1400 PO Last administered on 01/09/17 14:53; Start 01/03/17 at 09:00; Stop 01/09/17 at 18:16 ; Status DC Trazodone HCl (Desyrel) 50 mg QHS PO Last administered on 01/17/17 19:25; Start 01/02/17 at 21:00 Trazodone HCl (Desyrel) 50 mg QHS PRN PO INSOMNIA Last administered on 20:05; Start 01/02/17 at 16:45 Divalproex Sodium (Depakote Sprinkles) 375 mg BID@0900,1400 PO Last administered on 01/11/17 14:00; Start 01/10/17 at 09:00; Stop 01/11/17 at 18:30 ; Status DC Trazodone HCl (Desyrel) 12.5 mg TID@0900,1300,1700 PO Last administered on 17:14; Start 01/12/17 at 09:00 Mirtazapine (Remeron) 7.5 mg QHS PO Last administered on 01/17/17 19:25; Start 01/11/17 at 21:00 Risperidone (RisperDAL) 0.25 mg BID PO Last administered on 01/18/17 07:43; Start 01/12/17 at 21:00 Nicotine (Nicoderm Cq 14mg) 1 patch DAILY TD ; Start 01/24/17 at 09:00; Stop 04/30 at 09:00; Status DC Nicotine (Nicoderm Cq 7mg) 1 patch DAILY TD ; Start 02/07/17 at 09:00; Stop at 09:00; Status DC Nicotine (Nicoderm Cq 14mg) 1 patch DAILY TD Last administered on 01/18/17 07: 40; Start 01/16/17 at 09:00; Stop 01/22/17 at 09:01 Nicotine (Nicoderm Cq 7mg) 1 patch DAILY TD ; Start 01/23/17 at 09:00; Stop at 08:00 Prenat Multivit/ Policy Officer/Iron/Folic Ac (Multivitamin ) 1 tab DAILY PO Last administered on 01/18/17 07:45; Start 01/18/17 at 09:00 Cyanocobalamin (Vitamin B-12) 250 mcg DAILY PO Last administered on 01/18/17 07 :46; Start 01/18/17 at 09:00 Active Scripts Active Reported Aspirin 325 Mg Tablet 325 Mg PO PRN DAILY PRN Thiamine Hcl 100 Mg Tablet 100 Mg PO DAILY Zyprexa (Olanzapine) 5 Mg Tablet 5 Mg PO PRN Q8HRS PRN Olanzapine 5 Mg Tablet 2.5 Mg PO TID Hydralazine Hcl 25 Mg Tablet 25 Mg PO PRN Q6HRS PRN Folic Acid 1 Mg Tablet 1 Mg PO DAILY Diagnosis: Problems: (1) Dementia associated with alcoholism (2) Anxiety disorder (3) Dementia associated with alcoholism with behavioral disturbance (4) Impulse control disorder (5) Wernicke-Korsakoff psychosis HEMAL PICKETT MD Jan 18, 2017 19:52
[2017-01-18] MEDS: MIRTAZAPINE 7.5 MG TABLET. PO SCH (19:58)
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
[2017-01-19 05:52] VITALS: BP 118/73
[2017-01-19] MEDS: OLANZapine 5 MG TABLET PO SCH ×3 (08:45→19:42)
[2017-01-19] MEDS: FOLIC ACID 1 MG TABLET PO SCH (08:46)
[2017-01-19] MEDS: CYANOCOBALAMIN (VITAMIN B-12) 250 MCG TABLET PO SCH (08:46)
[2017-01-19] MEDS: PRENATAL MULTIVITAMIN TABLET. PO SCH (08:46)
[2017-01-19] MEDS: risperiDONE 0.25 MG TABLET. PO SCH ×2 (08:46→19:42)
[2017-01-19] MEDS: traZODone 50 MG TABLET. PO SCH ×4 (08:46→19:42)
[2017-01-19] MEDS: THIAMINE 100 MG TABLET. PO SCH (08:46)
[2017-01-19] MEDS: NICOTINE 14MG PATCH. TD SCH (08:47)
[2017-01-19 15:56] VITALS: BP 122/84
--- NOTE | 2017-01-19 19:35 | PDOC ---
Exam Faustino Demential Exam: Faustino Note: Please also refer to the separate dictated note~for this date of service dictated separately.~Patient seen individually. Discussed the patient with Nursing staff reviewed the chart.~Reviewed interim history and current functioning. Reviewed vital signs,~Labs/ Radiology~and current medications noted below. Continue current treatment with the changes noted in the dictated addendum note Assessment: Vital Signs: Vital Signs Date Time Temp Pulse Resp B/P (MAP) Pulse Ox O2 Delivery O2 Flow Rate FiO2 01/19/17 15:56 98.2 94 16 122/84 (97) 97 01/17/17 17:26 Room Air I&O Intake and Output 01/20/17 07:00 Intake Total 1260 ml Balance 1260 ml Intake Oral 1260 ml Labs: Laboratory Tests Test 01/19/17 07:30 Glucose (Fingerstick) 103 mg/dL (70-99) H Current Medications: Meds: Current Medications Acetaminophen (Tylenol) 650 mg PRN Q6HRS PRN PO PAIN / TEMP Last administered on 01/14/17 03:20; Start 12/28/16 at 15:00 Multi-Ingredient Ointment (Analgesic [place]) 1 tessy PRN QID PRN TP MUSCLE PAIN; Start 12/28/16 at 15:00 Al Hydroxide/Mg Hydroxide (Mylanta Plus Xs) 15 ml PRN AFTMEALHC PRN PO DYSPEPSIA; Start 12/28/16 at 15:00 Magnesium Hydroxide (Milk Of Magnesia) 2,400 mg PRN QHS PRN PO CONSTIPATION; Start 12/28/16 at 15:00 Nicotine (Nicoderm Cq 21mg) 1 patch DAILY TD Last administered on 01/15/17 07: 37; Start 12/28/16 at 16:00; Stop 01/15/17 at 07:45; Status DC Aspirin (Ebenezer Aspirin) 325 mg PRN DAILY PRN PO PAIN; Start 12/28/16 at 18:30 Folic Acid (Folic Acid) 1 mg DAILY PO Last administered on 01/19/17 08:46; Start 12/29/16 at 09:00 Hydralazine HCl (Apresoline) 25 mg PRN Q6HRS PRN PO hypertension; Start at 18:15 Olanzapine (ZyPREXA) 2.5 mg TID PO Last administered on 01/19/17 13:35; Start 12/28/16 at 21:00 Olanzapine (ZyPREXA) 5 mg PRN Q8HRS PRN PO ANXIETY / AGITATION Last administered on 01/11/17 17:05; Start 12/28/16 at 18:15 Thiamine HCl (Vitamin B-1) 100 mg DAILY PO Last administered on 01/19/17 08:46 ; Start 12/29/16 at 09:00 Divalproex Sodium (Depakote Sprinkles) 125 mg BID@0900,1400 PO Last administered on 01/02/17 13:38; Start 12/29/16 at 09:00; Stop 01/02/17 at 16:48 ; Status DC Vitamin D (Vitamin D3) 50,000 unit WEEKLY PO Last administered on 01/13/17 08: 09; Start 12/30/16 at 09:00 Divalproex Sodium (Depakote Sprinkles) 250 mg BID@0900,1400 PO Last administered on 01/09/17 14:53; Start 01/03/17 at 09:00; Stop 01/09/17 at 18:16 ; Status DC Trazodone HCl (Desyrel) 50 mg QHS PO Last administered on 01/18/17 19:58; Start 01/02/17 at 21:00 Trazodone HCl (Desyrel) 50 mg QHS PRN PO INSOMNIA Last administered on 20:05; Start 01/02/17 at 16:45 Divalproex Sodium (Depakote Sprinkles) 375 mg BID@0900,1400 PO Last administered on 01/11/17 14:00; Start 01/10/17 at 09:00; Stop 01/11/17 at 18:30 ; Status DC Trazodone HCl (Desyrel) 12.5 mg TID@0900,1300,1700 PO Last administered on 16:32; Start 01/12/17 at 09:00 Mirtazapine (Remeron) 7.5 mg QHS PO Last administered on 01/18/17 19:58; Start 01/11/17 at 21:00 Risperidone (RisperDAL) 0.25 mg BID PO Last administered on 01/19/17 08:46; Start 01/12/17 at 21:00 Nicotine (Nicoderm Cq 14mg) 1 patch DAILY TD ; Start 01/24/17 at 09:00; Stop 04/30 at 09:00; Status DC Nicotine (Nicoderm Cq 7mg) 1 patch DAILY TD ; Start 02/07/17 at 09:00; Stop at 09:00; Status DC Nicotine (Nicoderm Cq 14mg) 1 patch DAILY TD Last administered on 01/19/17 08: 47; Start 01/16/17 at 09:00; Stop 01/22/17 at 09:01 Nicotine (Nicoderm Cq 7mg) 1 patch DAILY TD ; Start 01/23/17 at 09:00; Stop at 08:00 Prenat Multivit/ Fruit Picker/Iron/Folic Ac (Multivitamin ) 1 tab DAILY PO Last administered on 01/19/17 08:46; Start 01/18/17 at 09:00 Cyanocobalamin (Vitamin B-12) 250 mcg DAILY PO Last administered on 01/19/17 08 :46; Start 01/18/17 at 09:00 Active Scripts Active Reported Aspirin 325 Mg Tablet 325 Mg PO PRN DAILY PRN Thiamine Hcl 100 Mg Tablet 100 Mg PO DAILY Zyprexa (Olanzapine) 5 Mg Tablet 5 Mg PO PRN Q8HRS PRN Olanzapine 5 Mg Tablet 2.5 Mg PO TID Hydralazine Hcl 25 Mg Tablet 25 Mg PO PRN Q6HRS PRN Folic Acid 1 Mg Tablet 1 Mg PO DAILY Diagnosis: Problems: (1) Dementia associated with alcoholism (2) Anxiety disorder (3) Dementia associated with alcoholism with behavioral disturbance (4) Impulse control disorder (5) Wernicke-Korsakoff psychosis HEMAL PICKETT MD Jan 19, 2017 19:35
[2017-01-19] MEDS: MIRTAZAPINE 7.5 MG TABLET. PO SCH (19:42)
--- NOTE | 2017-01-20 01:51 | PN ---
DATE: 01/18/2017 PSYCHIATRIC PROGRESS NOTE This is a late entry of 01/18/2017 covers elements not covered in my initial note of 01/18/2017. SUBJECTIVE: Per nursing report, the patient continues to confabulate remains hyperverbal, confused. 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 No active suicidal or homicidal ideation. He does redirect. REVIEW OF SYSTEMS: No CV, , pulmonary, eye, ENT system symptoms on review. Reliability poor. MENTAL STATUS EXAM: Oriented to himself. Insight, judgment, recent and remote memory, attention, concentration, fund of knowledge poor, consistent with his diagnosis mentioned in my initial note. PLAN: Continue current psychotropics reviewed and drug interactions risk, benefit ratio favors no further change at this time. MAN Tanya PICKETT MD DR: JUAN PABLO/anthony JOB#: [id number] / [id number]
--- NOTE | 2017-01-20 05:30 | PN ---
DATE: PSYCHIATRIC PROGRESS NOTE This not covers elements not covered in my initial note of 01/19/2017. The patient was seen on rounds the evening of 01/19/2017, staffed at a treatment team meeting with the entire team morning of 01/19/2017. Appetite 100%, sleeping about 6 hours. At times, he gets somewhat manic, grandiose, but part of this is his Korsakoff syndrome and associations in reference to this. He is somewhat suspicious, paranoid in the evening, believing that someone was watching him, stated he would "kick their ass." REVIEW OF SYSTEMS: No CV, , pulmonary, eye, ENT system symptoms on review. Reliability poor. MENTAL STATUS EXAM: Oriented to himself. Insight, judgment, recent and remote memory, attention, concentration, fund of knowledge poor, consistent with his diagnosis mentioned in my initial note. PLAN: Valproic acid level 40, Depakote adjusted. Repeat labs awaited, maintain current psychotropics. Adjust as clinically indicated. MAN Tanya PICKETT MD DR: JUAN PABLO/anthony JOB#: [id number] / [id number]
[2017-01-20 06:32] VITALS: BP 102/68
[2017-01-20] MEDS: NICOTINE 14MG PATCH. TD SCH (08:28)
[2017-01-20] MEDS: CYANOCOBALAMIN (VITAMIN B-12) 250 MCG TABLET PO SCH (08:28)
[2017-01-20] MEDS: OLANZapine 5 MG TABLET PO SCH ×3 (08:28→19:37)
[2017-01-20] MEDS: FOLIC ACID 1 MG TABLET PO SCH (08:29)
[2017-01-20] MEDS: PRENATAL MULTIVITAMIN TABLET. PO SCH (08:29)
[2017-01-20] MEDS: traZODone 50 MG TABLET. PO SCH ×4 (08:29→19:37)
[2017-01-20] MEDS: THIAMINE 100 MG TABLET. PO SCH (08:29)
[2017-01-20] MEDS: risperiDONE 0.25 MG TABLET. PO SCH ×2 (08:30→19:37)
[2017-01-20] MEDS: CHOLECALCIFEROL (VITAMIN D3) 50,000 UNIT CAPSULE PO SCH (08:33)
[2017-01-20 15:40] VITALS: BP 121/87
[2017-01-20] MEDS: MIRTAZAPINE 7.5 MG TABLET. PO SCH (19:37)
--- NOTE | 2017-01-20 20:32 | PDOC ---
Exam Faustino Demential Exam: Faustino Note: Please also refer to the separate dictated note~for this date of service dictated separately.~Patient seen individually. Discussed the patient with Nursing staff reviewed the chart.~Reviewed interim history and current functioning. Reviewed vital signs,~Labs/ Radiology~and current medications noted below. Continue current treatment with the changes noted in the dictated addendum note Assessment: Vital Signs: Vital Signs Date Time Temp Pulse Resp B/P (MAP) Pulse Ox O2 Delivery O2 Flow Rate FiO2 01/20/17 15:40 97.7 66 21 121/87 (98) 96 01/17/17 17:26 Room Air I&O Intake and Output 01/21/17 07:00 Intake Total 1020 ml Balance 1020 ml Intake Oral 1020 ml Labs: Laboratory Tests Test 01/20/17 07:39 Glucose (Fingerstick) 91 mg/dL (70-99) Current Medications: Meds: Current Medications Acetaminophen (Tylenol) 650 mg PRN Q6HRS PRN PO PAIN / TEMP Last administered on 01/14/17 03:20; Start 12/28/16 at 15:00 Multi-Ingredient Ointment (Analgesic [place]) 1 tessy PRN QID PRN TP MUSCLE PAIN; Start 12/28/16 at 15:00 Al Hydroxide/Mg Hydroxide (Mylanta Plus Xs) 15 ml PRN AFTMEALHC PRN PO DYSPEPSIA; Start 12/28/16 at 15:00 Magnesium Hydroxide (Milk Of Magnesia) 2,400 mg PRN QHS PRN PO CONSTIPATION; Start 12/28/16 at 15:00 Nicotine (Nicoderm Cq 21mg) 1 patch DAILY TD Last administered on 01/15/17 07: 37; Start 12/28/16 at 16:00; Stop 01/15/17 at 07:45; Status DC Aspirin (Ebenezer Aspirin) 325 mg PRN DAILY PRN PO PAIN; Start 12/28/16 at 18:30 Folic Acid (Folic Acid) 1 mg DAILY PO Last administered on 01/20/17 08:29; Start 12/29/16 at 09:00 Hydralazine HCl (Apresoline) 25 mg PRN Q6HRS PRN PO hypertension; Start at 18:15 Olanzapine (ZyPREXA) 2.5 mg TID PO Last administered on 01/20/17 19:37; Start 12/28/16 at 21:00 Olanzapine (ZyPREXA) 5 mg PRN Q8HRS PRN PO ANXIETY / AGITATION Last administered on 01/11/17 17:05; Start 12/28/16 at 18:15 Thiamine HCl (Vitamin B-1) 100 mg DAILY PO Last administered on 01/20/17 08:29 ; Start 12/29/16 at 09:00 Divalproex Sodium (Depakote Sprinkles) 125 mg BID@0900,1400 PO Last administered on 01/02/17 13:38; Start 12/29/16 at 09:00; Stop 01/02/17 at 16:48 ; Status DC Vitamin D (Vitamin D3) 50,000 unit WEEKLY PO Last administered on 01/20/17 08: 33; Start 12/30/16 at 09:00 Divalproex Sodium (Depakote Sprinkles) 250 mg BID@0900,1400 PO Last administered on 01/09/17 14:53; Start 01/03/17 at 09:00; Stop 01/09/17 at 18:16 ; Status DC Trazodone HCl (Desyrel) 50 mg QHS PO Last administered on 01/20/17 19:37; Start 01/02/17 at 21:00 Trazodone HCl (Desyrel) 50 mg QHS PRN PO INSOMNIA Last administered on 20:05; Start 01/02/17 at 16:45 Divalproex Sodium (Depakote Sprinkles) 375 mg BID@0900,1400 PO Last administered on 01/11/17 14:00; Start 01/10/17 at 09:00; Stop 01/11/17 at 18:30 ; Status DC Trazodone HCl (Desyrel) 12.5 mg TID@0900,1300,1700 PO Last administered on 16:21; Start 01/12/17 at 09:00 Mirtazapine (Remeron) 7.5 mg QHS PO Last administered on 01/20/17 19:37; Start 01/11/17 at 21:00 Risperidone (RisperDAL) 0.25 mg BID PO Last administered on 01/20/17 19:37; Start 01/12/17 at 21:00 Nicotine (Nicoderm Cq 14mg) 1 patch DAILY TD ; Start 01/24/17 at 09:00; Stop 04/30 at 09:00; Status DC Nicotine (Nicoderm Cq 7mg) 1 patch DAILY TD ; Start 02/07/17 at 09:00; Stop at 09:00; Status DC Nicotine (Nicoderm Cq 14mg) 1 patch DAILY TD Last administered on 01/20/17 08: 28; Start 01/16/17 at 09:00; Stop 01/22/17 at 09:01 Nicotine (Nicoderm Cq 7mg) 1 patch DAILY TD ; Start 01/23/17 at 09:00; Stop at 08:00 Prenat Multivit/ Industrial Manufacturing Technician/Iron/Folic Ac (Multivitamin ) 1 tab DAILY PO Last administered on 01/20/17 08:29; Start 01/18/17 at 09:00 Cyanocobalamin (Vitamin B-12) 250 mcg DAILY PO Last administered on 01/20/17 08 :28; Start 01/18/17 at 09:00 Active Scripts Active Reported Aspirin 325 Mg Tablet 325 Mg PO PRN DAILY PRN Thiamine Hcl 100 Mg Tablet 100 Mg PO DAILY Zyprexa (Olanzapine) 5 Mg Tablet 5 Mg PO PRN Q8HRS PRN Olanzapine 5 Mg Tablet 2.5 Mg PO TID Hydralazine Hcl 25 Mg Tablet 25 Mg PO PRN Q6HRS PRN Folic Acid 1 Mg Tablet 1 Mg PO DAILY Diagnosis: Problems: (1) Dementia associated with alcoholism (2) Anxiety disorder (3) Dementia associated with alcoholism with behavioral disturbance (4) Impulse control disorder (5) Wernicke-Korsakoff psychosis HEMAL PICKETT MD Jan 20, 2017 20:32
[2017-01-21 05:51] VITALS: BP 124/76
[2017-01-21] MEDS: traZODone 50 MG TABLET. PO SCH ×4 (09:04→19:28)
[2017-01-21] MEDS: OLANZapine 5 MG TABLET PO SCH ×3 (09:05→19:28)
[2017-01-21] MEDS: CYANOCOBALAMIN (VITAMIN B-12) 250 MCG TABLET PO SCH (09:05)
[2017-01-21] MEDS: PRENATAL MULTIVITAMIN TABLET. PO SCH (09:05)
[2017-01-21] MEDS: FOLIC ACID 1 MG TABLET PO SCH (09:05)
[2017-01-21] MEDS: risperiDONE 0.25 MG TABLET. PO SCH ×2 (09:05→19:28)
[2017-01-21] MEDS: THIAMINE 100 MG TABLET. PO SCH (09:05)
[2017-01-21] MEDS: NICOTINE 14MG PATCH. TD SCH (09:05)
[2017-01-21 17:17] VITALS: BP 132/90
[2017-01-21] MEDS: MIRTAZAPINE 7.5 MG TABLET. PO SCH (19:28)
--- NOTE | 2017-01-21 23:03 | PDOC ---
Exam Faustino Demential Exam: Faustino Note: Please also refer to the separate dictated note~for this date of service dictated separately.~Patient seen individually. Discussed the patient with Nursing staff reviewed the chart.~Reviewed interim history and current functioning. Reviewed vital signs,~Labs/ Radiology~and current medications noted below. Continue current treatment with the changes noted in the dictated addendum note Assessment: Vital Signs: Vital Signs Date Time Temp Pulse Resp B/P (MAP) Pulse Ox O2 Delivery O2 Flow Rate FiO2 01/21/17 17:17 98.4 90 20 132/90 (104) 97 01/21/17 05:51 Room Air I&O Intake and Output 01/22/17 07:00 Intake Total 1560 ml Balance 1560 ml Intake Oral 1560 ml Labs: Laboratory Tests Test 01/21/17 07:29 Glucose (Fingerstick) 89 mg/dL (70-99) Current Medications: Meds: Current Medications Acetaminophen (Tylenol) 650 mg PRN Q6HRS PRN PO PAIN / TEMP Last administered on 01/14/17 03:20; Start 12/28/16 at 15:00 Multi-Ingredient Ointment (Analgesic [place]) 1 tessy PRN QID PRN TP MUSCLE PAIN; Start 12/28/16 at 15:00 Al Hydroxide/Mg Hydroxide (Mylanta Plus Xs) 15 ml PRN AFTMEALHC PRN PO DYSPEPSIA; Start 12/28/16 at 15:00 Magnesium Hydroxide (Milk Of Magnesia) 2,400 mg PRN QHS PRN PO CONSTIPATION; Start 12/28/16 at 15:00 Nicotine (Nicoderm Cq 21mg) 1 patch DAILY TD Last administered on 01/15/17 07: 37; Start 12/28/16 at 16:00; Stop 01/15/17 at 07:45; Status DC Aspirin (Ebenezer Aspirin) 325 mg PRN DAILY PRN PO PAIN; Start 12/28/16 at 18:30 Folic Acid (Folic Acid) 1 mg DAILY PO Last administered on 01/21/17 09:05; Start 12/29/16 at 09:00 Hydralazine HCl (Apresoline) 25 mg PRN Q6HRS PRN PO hypertension; Start at 18:15 Olanzapine (ZyPREXA) 2.5 mg TID PO Last administered on 01/21/17 19:28; Start 12/28/16 at 21:00 Olanzapine (ZyPREXA) 5 mg PRN Q8HRS PRN PO ANXIETY / AGITATION Last administered on 01/11/17 17:05; Start 12/28/16 at 18:15 Thiamine HCl (Vitamin B-1) 100 mg DAILY PO Last administered on 01/21/17 09:05 ; Start 12/29/16 at 09:00 Divalproex Sodium (Depakote Sprinkles) 125 mg BID@0900,1400 PO Last administered on 01/02/17 13:38; Start 12/29/16 at 09:00; Stop 01/02/17 at 16:48 ; Status DC Vitamin D (Vitamin D3) 50,000 unit WEEKLY PO Last administered on 01/20/17 08: 33; Start 12/30/16 at 09:00 Divalproex Sodium (Depakote Sprinkles) 250 mg BID@0900,1400 PO Last administered on 01/09/17 14:53; Start 01/03/17 at 09:00; Stop 01/09/17 at 18:16 ; Status DC Trazodone HCl (Desyrel) 50 mg QHS PO Last administered on 01/21/17 19:28; Start 01/02/17 at 21:00 Trazodone HCl (Desyrel) 50 mg QHS PRN PO INSOMNIA Last administered on 20:05; Start 01/02/17 at 16:45 Divalproex Sodium (Depakote Sprinkles) 375 mg BID@0900,1400 PO Last administered on 01/11/17 14:00; Start 01/10/17 at 09:00; Stop 01/11/17 at 18:30 ; Status DC Trazodone HCl (Desyrel) 12.5 mg TID@0900,1300,1700 PO Last administered on 17:11; Start 01/12/17 at 09:00 Mirtazapine (Remeron) 7.5 mg QHS PO Last administered on 01/21/17 19:28; Start 01/11/17 at 21:00 Risperidone (RisperDAL) 0.25 mg BID PO Last administered on 01/21/17 19:28; Start 01/12/17 at 21:00 Nicotine (Nicoderm Cq 14mg) 1 patch DAILY TD ; Start 01/24/17 at 09:00; Stop 04/30 at 09:00; Status DC Nicotine (Nicoderm Cq 7mg) 1 patch DAILY TD ; Start 02/07/17 at 09:00; Stop at 09:00; Status DC Nicotine (Nicoderm Cq 14mg) 1 patch DAILY TD Last administered on 01/21/17 09: 05; Start 01/16/17 at 09:00; Stop 01/22/17 at 09:01 Nicotine (Nicoderm Cq 7mg) 1 patch DAILY TD ; Start 01/23/17 at 09:00; Stop at 08:00 Prenat Multivit/ Credit Risk Specialist/Iron/Folic Ac (Multivitamin ) 1 tab DAILY PO Last administered on 01/21/17 09:05; Start 01/18/17 at 09:00 Cyanocobalamin (Vitamin B-12) 250 mcg DAILY PO Last administered on 01/21/17 09 :05; Start 01/18/17 at 09:00 Active Scripts Active Reported Aspirin 325 Mg Tablet 325 Mg PO PRN DAILY PRN Thiamine Hcl 100 Mg Tablet 100 Mg PO DAILY Zyprexa (Olanzapine) 5 Mg Tablet 5 Mg PO PRN Q8HRS PRN Olanzapine 5 Mg Tablet 2.5 Mg PO TID Hydralazine Hcl 25 Mg Tablet 25 Mg PO PRN Q6HRS PRN Folic Acid 1 Mg Tablet 1 Mg PO DAILY Diagnosis: Problems: (1) Dementia associated with alcoholism (2) Anxiety disorder (3) Dementia associated with alcoholism with behavioral disturbance (4) Impulse control disorder (5) Wernicke-Korsakoff psychosis HEMAL PICKETT MD Jan 21, 2017 23:03
--- NOTE | 2017-01-21 23:54 | PN ---
DATE: 01/20/2017 PSYCHIATRIC PROGRESS NOTE This late entry 01/20/2017, covers elements not covered in my initial note of 01/20/2017. SUBJECTIVE: The patient was seen individually evening of 01/20/2017. The patient slept 6-1/2 hours previous evening, continues to confabulate in his speech, otherwise, is redirectable, not aggressive. The irritability, mood lability experienced when we started the Depakote seems to have abated. He certainly seems to be doing better off the Depakote rather than on it and we leave it at that for now. REVIEW OF SYSTEMS: No CV, , pulmonary, eye, ENT system symptoms on review. Reliability poor. MENTAL STATUS EXAM: Oriented to himself. Insight, judgment, recent and remote memory, attention, concentration, fund of knowledge poor, consistent with his diagnosis. 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 All of this is part of his confabulation, but he is easily redirectable. LABORATORY DATA: Reviewed. IMPRESSION: Unchanged from initial note. PLAN: Continue psychotropics mentioned in my initial note, reviewed drug interactions risk/benefit ratio favors no further change as of now. HEMAL PICKETT MD DR: JUAN PABLO/anthony JOB#: [id number] / [id number]
[2017-01-22 06:02] VITALS: BP 109/68
[2017-01-22] MEDS: risperiDONE 0.25 MG TABLET. PO SCH ×2 (07:40→19:47)
[2017-01-22] MEDS: CYANOCOBALAMIN (VITAMIN B-12) 250 MCG TABLET PO SCH (07:40)
[2017-01-22] MEDS: FOLIC ACID 1 MG TABLET PO SCH (07:40)
[2017-01-22] MEDS: PRENATAL MULTIVITAMIN TABLET. PO SCH (07:40)
[2017-01-22] MEDS: THIAMINE 100 MG TABLET. PO SCH (07:40)
[2017-01-22] MEDS: traZODone 50 MG TABLET. PO SCH ×4 (07:40→19:47)
[2017-01-22] MEDS: OLANZapine 5 MG TABLET PO SCH (07:41)
[2017-01-22] MEDS: NICOTINE 14MG PATCH. TD SCH (07:48)
--- NOTE | 2017-01-22 11:46 | PN ---
DATE: 01/21/2017 PSYCHIATRIC PROGRESS NOTE This is a late entry 01/21/2017, covers elements not covered in my initial note. SUBJECTIVE: I met with the patient evening of 01/21/2017, the patient slept 7-1/2 hours previous evening, had a good night, somewhat delusional per nursing report, suspicious at times, but not aggressive. REVIEW OF SYSTEMS: No CV, , pulmonary, eye, ENT system symptoms on review. Reliability poor. MENTAL STATUS EXAM: Oriented to himself. Insight, judgment, recent and remote memory, attention, concentration, fund of knowledge poor, consistent with his diagnoses mentioned in my initial note Wernicke-Korsakoff syndrome, major neurocognitive disorder, multifactorial probably alcohol related with delusion, depression, behavioral disturbance; anxiety disorder, unspecified; impulse control disorder, unspecified. PLAN: Continue current psychotropics. Depakote was discontinued as it seemed to increase his agitation. We will maintain Zyprexa, trazodone scheduled and at night p.r.n., Risperdal, Remeron. He is on a combination of two atypical antipsychotics, Zyprexa and Risperdal. We will go ahead and reduce the Zyprexa down to 2.5 mg twice a day in an attempt to taper it, but we will do this on 01/22/2017. I reviewed drug interactions, risk/benefit ratio favors no further change. MAN Tanya PICKETT MD DR: JUAN PABLO/anthony JOB#: [id number] / [id number]
[2017-01-22] MEDS: OLANZapine 2.5 MG TABLET PO SCH (13:32)
[2017-01-22 16:31] VITALS: BP 132/87
[2017-01-22] MEDS: MIRTAZAPINE 7.5 MG TABLET. PO SCH (19:47)
--- NOTE | 2017-01-22 19:55 | PDOC ---
Exam Faustino Demential Exam: Faustino Note: Please also refer to the separate dictated note~for this date of service dictated separately.~Patient seen individually. Discussed the patient with Nursing staff reviewed the chart.~Reviewed interim history and current functioning. Reviewed vital signs,~Labs/ Radiology~and current medications noted below. Continue current treatment with the changes noted in the dictated addendum note Assessment: Vital Signs: Vital Signs Date Time Temp Pulse Resp B/P (MAP) Pulse Ox O2 Delivery O2 Flow Rate FiO2 01/22/17 16:31 97.5 92 18 132/87 (102) 97 01/21/17 05:51 Room Air I&O Intake and Output 01/23/17 07:00 Intake Total 1440 ml Balance 1440 ml Intake Oral 1440 ml Labs: Laboratory Tests Test 01/22/17 07:22 Glucose (Fingerstick) 90 mg/dL (70-99) Current Medications: Meds: Current Medications Acetaminophen (Tylenol) 650 mg PRN Q6HRS PRN PO PAIN / TEMP Last administered on 01/14/17 03:20; Start 12/28/16 at 15:00 Multi-Ingredient Ointment (Analgesic [place]) 1 tessy PRN QID PRN TP MUSCLE PAIN; Start 12/28/16 at 15:00 Al Hydroxide/Mg Hydroxide (Mylanta Plus Xs) 15 ml PRN AFTMEALHC PRN PO DYSPEPSIA; Start 12/28/16 at 15:00 Magnesium Hydroxide (Milk Of Magnesia) 2,400 mg PRN QHS PRN PO CONSTIPATION; Start 12/28/16 at 15:00 Nicotine (Nicoderm Cq 21mg) 1 patch DAILY TD Last administered on 01/15/17 07: 37; Start 12/28/16 at 16:00; Stop 01/15/17 at 07:45; Status DC Aspirin (Ebenezer Aspirin) 325 mg PRN DAILY PRN PO PAIN; Start 12/28/16 at 18:30 Folic Acid (Folic Acid) 1 mg DAILY PO Last administered on 01/22/17 07:40; Start 12/29/16 at 09:00 Hydralazine HCl (Apresoline) 25 mg PRN Q6HRS PRN PO hypertension; Start at 18:15 Olanzapine (ZyPREXA) 2.5 mg TID PO Last administered on 01/22/17 07:41; Start 12/28/16 at 21:00; Stop 01/22/17 at 12:20; Status DC Olanzapine (ZyPREXA) 5 mg PRN Q8HRS PRN PO ANXIETY / AGITATION Last administered on 01/11/17 17:05; Start 12/28/16 at 18:15 Thiamine HCl (Vitamin B-1) 100 mg DAILY PO Last administered on 01/22/17 07:40 ; Start 12/29/16 at 09:00 Divalproex Sodium (Depakote Sprinkles) 125 mg BID@0900,1400 PO Last administered on 01/02/17 13:38; Start 12/29/16 at 09:00; Stop 01/02/17 at 16:48 ; Status DC Vitamin D (Vitamin D3) 50,000 unit WEEKLY PO Last administered on 01/20/17 08: 33; Start 12/30/16 at 09:00 Divalproex Sodium (Depakote Sprinkles) 250 mg BID@0900,1400 PO Last administered on 01/09/17 14:53; Start 01/03/17 at 09:00; Stop 01/09/17 at 18:16 ; Status DC Trazodone HCl (Desyrel) 50 mg QHS PO Last administered on 01/22/17 19:47; Start 01/02/17 at 21:00 Trazodone HCl (Desyrel) 50 mg QHS PRN PO INSOMNIA Last administered on 20:05; Start 01/02/17 at 16:45 Divalproex Sodium (Depakote Sprinkles) 375 mg BID@0900,1400 PO Last administered on 01/11/17 14:00; Start 01/10/17 at 09:00; Stop 01/11/17 at 18:30 ; Status DC Trazodone HCl (Desyrel) 12.5 mg TID@0900,1300,1700 PO Last administered on 01/22 17:02; Start 01/12/17 at 09:00 Mirtazapine (Remeron) 7.5 mg QHS PO Last administered on 01/22/17 19:47; Start 01/11/17 at 21:00 Risperidone (RisperDAL) 0.25 mg BID PO Last administered on 01/22/17 19:47; Start 01/12/17 at 21:00 Nicotine (Nicoderm Cq 14mg) 1 patch DAILY TD ; Start 01/24/17 at 09:00; Stop 04/30 at 09:00; Status DC Nicotine (Nicoderm Cq 7mg) 1 patch DAILY TD ; Start 02/07/17 at 09:00; Stop at 09:00; Status DC Nicotine (Nicoderm Cq 14mg) 1 patch DAILY TD Last administered on 01/22/17 07: 48; Start 01/16/17 at 09:00; Stop 01/22/17 at 09:01; Status DC Nicotine (Nicoderm Cq 7mg) 1 patch DAILY TD ; Start 01/23/17 at 09:00; Stop at 08:00 Prenat Multivit/ Nurse Assistant/Iron/Folic Ac (Multivitamin ) 1 tab DAILY PO Last administered on 01/22/17 07:40; Start 01/18/17 at 09:00 Cyanocobalamin (Vitamin B-12) 250 mcg DAILY PO Last administered on 01/22/17 07:40; Start 01/18/17 at 09:00 Olanzapine (ZyPREXA) 2.5 mg BID92 PO Last administered on 01/22/17 13:32; Start 01/22/17 at 14:00 Active Scripts Active Reported Aspirin 325 Mg Tablet 325 Mg PO PRN DAILY PRN Thiamine Hcl 100 Mg Tablet 100 Mg PO DAILY Zyprexa (Olanzapine) 5 Mg Tablet 5 Mg PO PRN Q8HRS PRN Olanzapine 5 Mg Tablet 2.5 Mg PO TID Hydralazine Hcl 25 Mg Tablet 25 Mg PO PRN Q6HRS PRN Folic Acid 1 Mg Tablet 1 Mg PO DAILY Diagnosis: Problems: (1) Dementia associated with alcoholism (2) Anxiety disorder (3) Dementia associated with alcoholism with behavioral disturbance (4) Impulse control disorder (5) Wernicke-Korsakoff psychosis HEMAL PICKETT MD Jan 22, 2017 19:55
[2017-01-23 06:05] VITALS: BP 127/82
[2017-01-23] MEDS: traZODone 50 MG TABLET. PO SCH ×4 (08:20→19:41)
[2017-01-23] MEDS: PRENATAL MULTIVITAMIN TABLET. PO SCH (08:20)
[2017-01-23] MEDS: FOLIC ACID 1 MG TABLET PO SCH (08:20)
[2017-01-23] MEDS: THIAMINE 100 MG TABLET. PO SCH (08:21)
[2017-01-23] MEDS: OLANZapine 2.5 MG TABLET PO SCH ×2 (08:21→13:20)
[2017-01-23] MEDS: risperiDONE 0.25 MG TABLET. PO SCH ×2 (08:21→19:41)
[2017-01-23] MEDS: CYANOCOBALAMIN (VITAMIN B-12) 250 MCG TABLET PO SCH (08:21)
[2017-01-23] MEDS: NICOTINE 7MG PATCH. TD SCH (08:22)
[2017-01-23 15:52] VITALS: BP 134/87
--- NOTE | 2017-01-23 19:38 | PDOC ---
Exam Faustino Demential Exam: Faustino Note: Please also refer to the separate dictated note~for this date of service dictated separately.~Patient seen individually. Discussed the patient with Nursing staff reviewed the chart.~Reviewed interim history and current functioning. Reviewed vital signs,~Labs/ Radiology~and current medications noted below. Continue current treatment with the changes noted in the dictated addendum note Assessment: Vital Signs: Vital Signs Date Time Temp Pulse Resp B/P (MAP) Pulse Ox O2 Delivery O2 Flow Rate FiO2 01/23/17 15:52 98.3 97 18 134/87 (103) 97 01/21/17 05:51 Room Air I&O Intake and Output 01/24/17 07:00 Intake Total 1580 ml Balance 1580 ml Intake Oral 1580 ml Labs: Laboratory Tests Test 01/23/17 07:38 Glucose (Fingerstick) 89 mg/dL (70-99) Current Medications: Meds: Current Medications Acetaminophen (Tylenol) 650 mg PRN Q6HRS PRN PO PAIN / TEMP Last administered on 01/14/17 03:20; Start 12/28/16 at 15:00 Multi-Ingredient Ointment (Analgesic [place]) 1 tessy PRN QID PRN TP MUSCLE PAIN; Start 12/28/16 at 15:00 Al Hydroxide/Mg Hydroxide (Mylanta Plus Xs) 15 ml PRN AFTMEALHC PRN PO DYSPEPSIA; Start 12/28/16 at 15:00 Magnesium Hydroxide (Milk Of Magnesia) 2,400 mg PRN QHS PRN PO CONSTIPATION; Start 12/28/16 at 15:00 Nicotine (Nicoderm Cq 21mg) 1 patch DAILY TD Last administered on 01/15/17 07: 37; Start 12/28/16 at 16:00; Stop 01/15/17 at 07:45; Status DC Aspirin (Ebenezer Aspirin) 325 mg PRN DAILY PRN PO PAIN; Start 12/28/16 at 18:30 Folic Acid (Folic Acid) 1 mg DAILY PO Last administered on 01/23/17 08:20; Start 12/29/16 at 09:00 Hydralazine HCl (Apresoline) 25 mg PRN Q6HRS PRN PO hypertension; Start at 18:15 Olanzapine (ZyPREXA) 2.5 mg TID PO Last administered on 01/22/17 07:41; Start 12/28/16 at 21:00; Stop 01/22/17 at 12:20; Status DC Olanzapine (ZyPREXA) 5 mg PRN Q8HRS PRN PO ANXIETY / AGITATION Last administered on 01/11/17 17:05; Start 12/28/16 at 18:15 Thiamine HCl (Vitamin B-1) 100 mg DAILY PO Last administered on 01/23/17 08:21 ; Start 12/29/16 at 09:00 Divalproex Sodium (Depakote Sprinkles) 125 mg BID@0900,1400 PO Last administered on 01/02/17 13:38; Start 12/29/16 at 09:00; Stop 01/02/17 at 16:48 ; Status DC Vitamin D (Vitamin D3) 50,000 unit WEEKLY PO Last administered on 01/20/17 08: 33; Start 12/30/16 at 09:00 Divalproex Sodium (Depakote Sprinkles) 250 mg BID@0900,1400 PO Last administered on 01/09/17 14:53; Start 01/03/17 at 09:00; Stop 01/09/17 at 18:16 ; Status DC Trazodone HCl (Desyrel) 50 mg QHS PO Last administered on 01/22/17 19:47; Start 01/02/17 at 21:00 Trazodone HCl (Desyrel) 50 mg QHS PRN PO INSOMNIA Last administered on 20:05; Start 01/02/17 at 16:45 Divalproex Sodium (Depakote Sprinkles) 375 mg BID@0900,1400 PO Last administered on 01/11/17 14:00; Start 01/10/17 at 09:00; Stop 01/11/17 at 18:30 ; Status DC Trazodone HCl (Desyrel) 12.5 mg TID@0900,1300,1700 PO Last administered on 01/23 17:01; Start 01/12/17 at 09:00 Mirtazapine (Remeron) 7.5 mg QHS PO Last administered on 01/22/17 19:47; Start 01/11/17 at 21:00 Risperidone (RisperDAL) 0.25 mg BID PO Last administered on 01/23/17 08:21; Start 01/12/17 at 21:00 Nicotine (Nicoderm Cq 14mg) 1 patch DAILY TD ; Start 01/24/17 at 09:00; Stop 04/30 at 09:00; Status DC Nicotine (Nicoderm Cq 7mg) 1 patch DAILY TD ; Start 02/07/17 at 09:00; Stop at 09:00; Status DC Nicotine (Nicoderm Cq 14mg) 1 patch DAILY TD Last administered on 01/22/17 07: 48; Start 01/16/17 at 09:00; Stop 01/22/17 at 09:01; Status DC Nicotine (Nicoderm Cq 7mg) 1 patch DAILY TD Last administered on 01/23/17 08: 22; Start 01/23/17 at 09:00; Stop 01/30/17 at 08:00 Prenat Multivit/ [employer]er/Iron/Folic Ac (Multivitamin ) 1 tab DAILY PO Last administered on 01/23/17 08:20; Start 01/18/17 at 09:00 Cyanocobalamin (Vitamin B-12) 250 mcg DAILY PO Last administered on 01/23/17 08:21; Start 01/18/17 at 09:00 Olanzapine (ZyPREXA) 2.5 mg BID92 PO Last administered on 01/23/17 13:20; Start 01/22/17 at 14:00 Active Scripts Active Reported Aspirin 325 Mg Tablet 325 Mg PO PRN DAILY PRN Thiamine Hcl 100 Mg Tablet 100 Mg PO DAILY Zyprexa (Olanzapine) 5 Mg Tablet 5 Mg PO PRN Q8HRS PRN Olanzapine 5 Mg Tablet 2.5 Mg PO TID Hydralazine Hcl 25 Mg Tablet 25 Mg PO PRN Q6HRS PRN Folic Acid 1 Mg Tablet 1 Mg PO DAILY Diagnosis: Problems: (1) Dementia associated with alcoholism (2) Anxiety disorder (3) Dementia associated with alcoholism with behavioral disturbance (4) Impulse control disorder (5) Wernicke-Korsakoff psychosis HEMAL PICKETT MD Jan 23, 2017 19:38
[2017-01-23] MEDS: MIRTAZAPINE 7.5 MG TABLET. PO SCH (19:41)
--- NOTE | 2017-01-24 01:16 | PN ---
DATE: 01/22/2017 PSYCHIATRIC PROGRESS NOTE This is a late entry for 01/22/2017, covers elements not covered in my initial note of 01/22/2017. SUBJECTIVE: I met with the patient the evening of 01/22/2017. The patient continues to confabulate, is confused, but is not aggressive or disruptive. REVIEW OF SYSTEMS: No CV, , pulmonary, eye, ENT system symptoms on review. Reliability poor. MENTAL STATUS EXAM: Oriented to himself. Insight, judgment, recent and remote memory, attention, concentration, fund of knowledge poor, consistent with his diagnosis mentioned in my initial note. PLAN: Continue current psychotropics mentioned in my initial note. Given his history of alcohol abuse and the fact that we are nearing discharge, we will go ahead and start him on naltrexone 25 mg a day to help reduce the craving for alcohol post-discharge. Reviewed drug interactions. Risk/benefit ratio favors no further change at this time. HEMAL PICKETT MD DR: JUAN PABLO/anthony JOB#: [id number] / [id number]
[2017-01-24 05:40] VITALS: BP 135/87
[2017-01-24] MEDS: CYANOCOBALAMIN (VITAMIN B-12) 250 MCG TABLET PO SCH (08:58)
[2017-01-24] MEDS: traZODone 50 MG TABLET. PO SCH ×4 (08:58→19:49)
[2017-01-24] MEDS: OLANZapine 2.5 MG TABLET PO SCH ×2 (08:59→13:19)
[2017-01-24] MEDS ORDERED: NICOTINE 14MG PATCH. TD SCH (09:00)
[2017-01-24] MEDS: FOLIC ACID 1 MG TABLET PO SCH (09:00)
[2017-01-24] MEDS: NICOTINE 7MG PATCH. TD SCH (09:00)
[2017-01-24] MEDS: THIAMINE 100 MG TABLET. PO SCH (09:00)
[2017-01-24] MEDS: PRENATAL MULTIVITAMIN TABLET. PO SCH (09:00)
[2017-01-24] MEDS: risperiDONE 0.25 MG TABLET. PO SCH ×2 (09:00→19:49)
[2017-01-24 15:57] VITALS: BP 134/84
--- NOTE | 2017-01-24 19:35 | PDOC ---
Exam Faustino Demential Exam: Faustino Note: Please also refer to the separate dictated note~for this date of service dictated separately.~Patient seen individually. Discussed the patient with Nursing staff reviewed the chart.~Reviewed interim history and current functioning. Reviewed vital signs,~Labs/ Radiology~and current medications noted below. Continue current treatment with the changes noted in the dictated addendum note Assessment: Vital Signs: Vital Signs Date Time Temp Pulse Resp B/P (MAP) Pulse Ox O2 Delivery O2 Flow Rate FiO2 01/24/17 15:57 98.3 80 19 134/84 (101) 97 01/21/17 05:51 Room Air I&O Intake and Output 01/25/17 06:59 Intake Total 1560 ml Balance 1560 ml Intake Oral 1560 ml Labs: Laboratory Tests Test 01/24/17 07:16 Glucose (Fingerstick) 94 mg/dL (70-99) Current Medications: Meds: Current Medications Acetaminophen (Tylenol) 650 mg PRN Q6HRS PRN PO PAIN / TEMP Last administered on 01/14/17 03:20; Start 12/28/16 at 15:00 Multi-Ingredient Ointment (Analgesic [place]) 1 tessy PRN QID PRN TP MUSCLE PAIN; Start 12/28/16 at 15:00 Al Hydroxide/Mg Hydroxide (Mylanta Plus Xs) 15 ml PRN AFTMEALHC PRN PO DYSPEPSIA; Start 12/28/16 at 15:00 Magnesium Hydroxide (Milk Of Magnesia) 2,400 mg PRN QHS PRN PO CONSTIPATION; Start 12/28/16 at 15:00 Nicotine (Nicoderm Cq 21mg) 1 patch DAILY TD Last administered on 01/15/17 07: 37; Start 12/28/16 at 16:00; Stop 01/15/17 at 07:45; Status DC Aspirin (Ebenezer Aspirin) 325 mg PRN DAILY PRN PO PAIN; Start 12/28/16 at 18:30 Folic Acid (Folic Acid) 1 mg DAILY PO Last administered on 01/24/17 09:00; Start 12/29/16 at 09:00 Hydralazine HCl (Apresoline) 25 mg PRN Q6HRS PRN PO hypertension; Start at 18:15 Olanzapine (ZyPREXA) 2.5 mg TID PO Last administered on 01/22/17 07:41; Start 12/28/16 at 21:00; Stop 01/22/17 at 12:20; Status DC Olanzapine (ZyPREXA) 5 mg PRN Q8HRS PRN PO ANXIETY / AGITATION Last administered on 01/11/17 17:05; Start 12/28/16 at 18:15 Thiamine HCl (Vitamin B-1) 100 mg DAILY PO Last administered on 01/24/17 09:00 ; Start 12/29/16 at 09:00 Divalproex Sodium (Depakote Sprinkles) 125 mg BID@0900,1400 PO Last administered on 01/02/17 13:38; Start 12/29/16 at 09:00; Stop 01/02/17 at 16:48 ; Status DC Vitamin D (Vitamin D3) 50,000 unit WEEKLY PO Last administered on 01/20/17 08: 33; Start 12/30/16 at 09:00 Divalproex Sodium (Depakote Sprinkles) 250 mg BID@0900,1400 PO Last administered on 01/09/17 14:53; Start 01/03/17 at 09:00; Stop 01/09/17 at 18:16 ; Status DC Trazodone HCl (Desyrel) 50 mg QHS PO Last administered on 01/23/17 19:41; Start 01/02/17 at 21:00 Trazodone HCl (Desyrel) 50 mg QHS PRN PO INSOMNIA Last administered on 20:05; Start 01/02/17 at 16:45 Divalproex Sodium (Depakote Sprinkles) 375 mg BID@0900,1400 PO Last administered on 01/11/17 14:00; Start 01/10/17 at 09:00; Stop 01/11/17 at 18:30 ; Status DC Trazodone HCl (Desyrel) 12.5 mg TID@0900,1300,1700 PO Last administered on 01/24 16:53; Start 01/12/17 at 09:00 Mirtazapine (Remeron) 7.5 mg QHS PO Last administered on 01/23/17 19:41; Start 01/11/17 at 21:00 Risperidone (RisperDAL) 0.25 mg BID PO Last administered on 01/24/17 09:00; Start 01/12/17 at 21:00 Nicotine (Nicoderm Cq 14mg) 1 patch DAILY TD ; Start 01/24/17 at 09:00; Stop 04/30 at 09:00; Status DC Nicotine (Nicoderm Cq 7mg) 1 patch DAILY TD ; Start 02/07/17 at 09:00; Stop at 09:00; Status DC Nicotine (Nicoderm Cq 14mg) 1 patch DAILY TD Last administered on 01/22/17 07: 48; Start 01/16/17 at 09:00; Stop 01/22/17 at 09:01; Status DC Nicotine (Nicoderm Cq 7mg) 1 patch DAILY TD Last administered on 01/24/17 09: 00; Start 01/23/17 at 09:00; Stop 01/30/17 at 08:00 Prenat Multivit/ [employer]/Iron/Folic Ac (Multivitamin ) 1 tab DAILY PO Last administered on 01/24/17 09:00; Start 01/18/17 at 09:00 Cyanocobalamin (Vitamin B-12) 250 mcg DAILY PO Last administered on 01/24/17 08:58; Start 01/18/17 at 09:00 Olanzapine (ZyPREXA) 2.5 mg BID92 PO Last administered on 01/24/17 13:19; Start 01/22/17 at 14:00 Active Scripts Active Reported Aspirin 325 Mg Tablet 325 Mg PO PRN DAILY PRN Thiamine Hcl 100 Mg Tablet 100 Mg PO DAILY Zyprexa (Olanzapine) 5 Mg Tablet 5 Mg PO PRN Q8HRS PRN Olanzapine 5 Mg Tablet 2.5 Mg PO TID Hydralazine Hcl 25 Mg Tablet 25 Mg PO PRN Q6HRS PRN Folic Acid 1 Mg Tablet 1 Mg PO DAILY Diagnosis: Problems: (1) Dementia associated with alcoholism (2) Anxiety disorder (3) Dementia associated with alcoholism with behavioral disturbance (4) Impulse control disorder (5) Wernicke-Korsakoff psychosis HEMAL PICKETT MD Jan 24, 2017 19:35
[2017-01-24] MEDS: MIRTAZAPINE 7.5 MG TABLET. PO SCH (19:49)
--- NOTE | 2017-01-25 01:41 | PN ---
DATE: 01/23/2017 This late entry 01/23/2017 covers elements not covered in my initiate note of 01/23/2017. SUBJECTIVE: I met with the patient in the evening of 01/23/2017. Overall, the patient has done reasonably well previous evening and during the day on 01/23/2017. He remains confused, confabulated which is evident in his conversation as I met with him the evening of 01/23/2017. He has not been aggressive, however. REVIEW OF SYSTEMS: No CV, , pulmonary, eye, ENT system symptoms on review. Reliability poor. MENTAL STATUS EXAM: Oriented to himself. Insight, judgment, recent and remote memory, attention, concentration, fund of knowledge poor, consistent with his diagnosis mentioned in my initial note. PLAN: Continue current psychotropics mentioned in my initial note, reviewed drug interactions, risk/benefit ratio favors no change at this time. HEMAL PICKETT MD DR: JUAN PABLO/anthony JOB#: [id number] / [id number]
[2017-01-25 06:02] VITALS: BP 143/82
[2017-01-25] MEDS: CYANOCOBALAMIN (VITAMIN B-12) 250 MCG TABLET PO SCH (09:47)
[2017-01-25] MEDS: PRENATAL MULTIVITAMIN TABLET. PO SCH (09:47)
[2017-01-25] MEDS: THIAMINE 100 MG TABLET. PO SCH (09:47)
[2017-01-25] MEDS: OLANZapine 2.5 MG TABLET PO SCH ×2 (09:47→13:46)
[2017-01-25] MEDS: NICOTINE 7MG PATCH. TD SCH (09:47)
[2017-01-25] MEDS: FOLIC ACID 1 MG TABLET PO SCH (09:48)
[2017-01-25] MEDS: traZODone 50 MG TABLET. PO SCH ×4 (09:48→19:39)
[2017-01-25] MEDS: risperiDONE 0.25 MG TABLET. PO SCH ×2 (09:48→19:39)
[2017-01-25 16:10] VITALS: BP 122/73
[2017-01-25] MEDS: MIRTAZAPINE 7.5 MG TABLET. PO SCH (19:39)
--- NOTE | 2017-01-25 19:45 | PDOC ---
Exam Faustino Demential Exam: Faustino Note: Please also refer to the separate dictated note~for this date of service dictated separately.~Patient seen individually. Discussed the patient with Nursing staff reviewed the chart.~Reviewed interim history and current functioning. Reviewed vital signs,~Labs/ Radiology~and current medications noted below. Continue current treatment with the changes noted in the dictated addendum note Assessment: Vital Signs: Vital Signs Date Time Temp Pulse Resp B/P (MAP) Pulse Ox O2 Delivery O2 Flow Rate FiO2 01/25/17 16:10 98.3 93 18 122/73 (89) 99 01/21/17 05:51 Room Air I&O Intake and Output 01/26/17 07:00 Intake Total 1800 ml Balance 1800 ml Intake Oral 1800 ml Labs: Laboratory Tests Test 01/25/17 07:20 Glucose (Fingerstick) 84 mg/dL (70-99) Current Medications: Meds: Current Medications Acetaminophen (Tylenol) 650 mg PRN Q6HRS PRN PO PAIN / TEMP Last administered on 01/14/17 03:20; Start 12/28/16 at 15:00 Multi-Ingredient Ointment (Analgesic [place]) 1 tessy PRN QID PRN TP MUSCLE PAIN; Start 12/28/16 at 15:00 Al Hydroxide/Mg Hydroxide (Mylanta Plus Xs) 15 ml PRN AFTMEALHC PRN PO DYSPEPSIA; Start 12/28/16 at 15:00 Magnesium Hydroxide (Milk Of Magnesia) 2,400 mg PRN QHS PRN PO CONSTIPATION; Start 12/28/16 at 15:00 Nicotine (Nicoderm Cq 21mg) 1 patch DAILY TD Last administered on 01/15/17 07: 37; Start 12/28/16 at 16:00; Stop 01/15/17 at 07:45; Status DC Aspirin (Ebenezer Aspirin) 325 mg PRN DAILY PRN PO PAIN; Start 12/28/16 at 18:30 Folic Acid (Folic Acid) 1 mg DAILY PO Last administered on 01/25/17 09:48; Start 12/29/16 at 09:00 Hydralazine HCl (Apresoline) 25 mg PRN Q6HRS PRN PO hypertension; Start at 18:15 Olanzapine (ZyPREXA) 2.5 mg TID PO Last administered on 01/22/17 07:41; Start 12/28/16 at 21:00; Stop 01/22/17 at 12:20; Status DC Olanzapine (ZyPREXA) 5 mg PRN Q8HRS PRN PO ANXIETY / AGITATION Last administered on 01/11/17 17:05; Start 12/28/16 at 18:15 Thiamine HCl (Vitamin B-1) 100 mg DAILY PO Last administered on 01/25/17 09:47 ; Start 12/29/16 at 09:00 Divalproex Sodium (Depakote Sprinkles) 125 mg BID@0900,1400 PO Last administered on 01/02/17 13:38; Start 12/29/16 at 09:00; Stop 01/02/17 at 16:48 ; Status DC Vitamin D (Vitamin D3) 50,000 unit WEEKLY PO Last administered on 01/20/17 08: 33; Start 12/30/16 at 09:00 Divalproex Sodium (Depakote Sprinkles) 250 mg BID@0900,1400 PO Last administered on 01/09/17 14:53; Start 01/03/17 at 09:00; Stop 01/09/17 at 18:16 ; Status DC Trazodone HCl (Desyrel) 50 mg QHS PO Last administered on 01/25/17 19:39; Start 01/02/17 at 21:00 Trazodone HCl (Desyrel) 50 mg QHS PRN PO INSOMNIA Last administered on 20:05; Start 01/02/17 at 16:45 Divalproex Sodium (Depakote Sprinkles) 375 mg BID@0900,1400 PO Last administered on 01/11/17 14:00; Start 01/10/17 at 09:00; Stop 01/11/17 at 18:30 ; Status DC Trazodone HCl (Desyrel) 12.5 mg TID@0900,1300,1700 PO Last administered on 01/25 17:16; Start 01/12/17 at 09:00 Mirtazapine (Remeron) 7.5 mg QHS PO Last administered on 01/25/17 19:39; Start 01/11/17 at 21:00 Risperidone (RisperDAL) 0.25 mg BID PO Last administered on 01/25/17 19:39; Start 01/12/17 at 21:00 Nicotine (Nicoderm Cq 14mg) 1 patch DAILY TD ; Start 01/24/17 at 09:00; Stop 04/30 at 09:00; Status DC Nicotine (Nicoderm Cq 7mg) 1 patch DAILY TD ; Start 02/07/17 at 09:00; Stop at 09:00; Status DC Nicotine (Nicoderm Cq 14mg) 1 patch DAILY TD Last administered on 01/22/17 07: 48; Start 01/16/17 at 09:00; Stop 01/22/17 at 09:01; Status DC Nicotine (Nicoderm Cq 7mg) 1 patch DAILY TD Last administered on 01/25/17 09: 47; Start 01/23/17 at 09:00; Stop 01/30/17 at 08:00 Prenat Multivit/ [place]/Iron/Folic Ac (Multivitamin ) 1 tab DAILY PO Last administered on 01/25/17 09:47; Start 01/18/17 at 09:00 Cyanocobalamin (Vitamin B-12) 250 mcg DAILY PO Last administered on 01/25/17 09:47; Start 01/18/17 at 09:00 Olanzapine (ZyPREXA) 2.5 mg BID92 PO Last administered on 01/25/17 13:46; Start 01/22/17 at 14:00 Active Scripts Active Reported Aspirin 325 Mg Tablet 325 Mg PO PRN DAILY PRN Thiamine Hcl 100 Mg Tablet 100 Mg PO DAILY Zyprexa (Olanzapine) 5 Mg Tablet 5 Mg PO PRN Q8HRS PRN Olanzapine 5 Mg Tablet 2.5 Mg PO TID Hydralazine Hcl 25 Mg Tablet 25 Mg PO PRN Q6HRS PRN Folic Acid 1 Mg Tablet 1 Mg PO DAILY Diagnosis: Problems: (1) Dementia associated with alcoholism (2) Anxiety disorder (3) Dementia associated with alcoholism with behavioral disturbance (4) Impulse control disorder (5) Wernicke-Korsakoff psychosis HEMAL PICKETT MD Jan 25, 2017 19:45
[2017-01-26 05:45] VITALS: BP 128/82
[2017-01-26 07:17] LABS: BASO # 0.1 x10^3/uL (0.0-0.2); BASO % 2 % (0-3); EOS # 0.6 x10^3/uL (0.0-0.7); EOS % 8 % (0-3); HEMATOCRIT 34.7 % (39.0-53.0); HEMOGLOBIN 12.3 g/dL (13.0-17.5); LYMPH # 1.5 x10^3/uL (1.0-4.8); LYMPH % 21 % (24-48); MEAN CORPUSCULAR HEMOGLOBIN 34 pg (25-35); MEAN CORPUSCULAR HGB CONC 35 g/dL (31-37); MEAN CORPUSCULAR VOLUME 96 fL (79-100); MONO # 0.9 x10^3/uL (0.0-1.1); MONO % 13 % (0-9); NEUT % 56 % (31-73); PLATELET COUNT 264 x10^3/uL (140-400); RED CELL DISTRIBUTION WIDTH 14.2 % (11.5-14.5); WHITE BLOOD COUNT 7.2 x10^3/uL (4.0-11.0)
[2017-01-26 07:30] LABS: ALBUMIN 2.6 g/dL (3.4-5.0); ALBUMIN/GLOBULIN RATIO 0.7 (1.0-1.7); CALCIUM 9.1 mg/dL (8.5-10.1); CREATININE 1.1 mg/dL (0.7-1.3); GFR 67.2; POTASSIUM 4.2 mmol/L (3.5-5.1); TOTAL BILIRUBIN 0.3 mg/dL (0.2-1.0); TOTAL PROTEIN 6.3 g/dL (6.4-8.2)
[2017-01-26] MEDS: OLANZapine 2.5 MG TABLET PO SCH ×2 (08:56→13:37)
[2017-01-26] MEDS: THIAMINE 100 MG TABLET. PO SCH (08:56)
[2017-01-26] MEDS: risperiDONE 0.25 MG TABLET. PO SCH ×2 (08:56→19:35)
[2017-01-26] MEDS: PRENATAL MULTIVITAMIN TABLET. PO SCH (08:56)
[2017-01-26] MEDS: FOLIC ACID 1 MG TABLET PO SCH (08:56)
[2017-01-26] MEDS: traZODone 50 MG TABLET. PO SCH ×4 (08:56→19:36)
[2017-01-26] MEDS: CYANOCOBALAMIN (VITAMIN B-12) 250 MCG TABLET PO SCH (08:56)
[2017-01-26] MEDS: NICOTINE 7MG PATCH. TD SCH (08:57)
--- NOTE | 2017-01-26 11:22 | PN ---
DATE: 01/24/2017 This late entry 01/24/2017 covers elements not covered in the initial note of 01/24/2017. I met with the patient the evening of 01/24/2017. The patient remains confused, wandering, otherwise calm, cooperative, per nursing report. REVIEW OF SYSTEMS: No CV, , pulmonary, eye, ENT system symptoms on review. Reliability poor. MENTAL STATUS EXAM: Oriented to himself. Insight, judgment, recent and remote memory, attention, concentration, fund of knowledge poor, consistent with his diagnosis. He has significant confabulation consistent with his diagnosis. IMPRESSION: Unchanged from initial note. PLAN: Continue current psychotropics. Adjust further as clinically indicated, reviewed, and drug interactions. Risk/benefit ratio favors no further change at this time. MAN Tanya PICKETT MD DR: JUAN PABLO/anthony JOB#: [id number] / [id number]
[2017-01-26 16:15] VITALS: BP 135/89
[2017-01-26] MEDS: MIRTAZAPINE 7.5 MG TABLET. PO SCH (19:35)
--- NOTE | 2017-01-26 19:43 | PDOC ---
Exam Faustino Demential Exam: Faustino Note: Please also refer to the separate dictated note~for this date of service dictated separately.~Patient seen individually. Discussed the patient with Nursing staff reviewed the chart.~Reviewed interim history and current functioning. Reviewed vital signs,~Labs/ Radiology~and current medications noted below. Continue current treatment with the changes noted in the dictated addendum note Assessment: Vital Signs: Vital Signs Date Time Temp Pulse Resp B/P (MAP) Pulse Ox O2 Delivery O2 Flow Rate FiO2 01/26/17 16:15 98.2 85 16 135/89 (104) 97 01/21/17 05:51 Room Air I&O Intake and Output 01/27/17 06:59 Intake Total 1200 ml Balance 1200 ml Intake Oral 1200 ml # Bowel Movements 1 Labs: Laboratory Tests Test 01/26/17 06:53 01/26/17 07:16 White Blood Count 7.2 x10^3/uL (4.0-11.0) Red Blood Count 3.60 x10^6/uL (4.30-5.70) L Hemoglobin 12.3 g/dL (13.0-17.5) L Hematocrit 34.7 % (39.0-53.0) L Mean Corpuscular Volume 96 fL (79-100) Mean Corpuscular Hemoglobin 34 pg (25-35) Mean Corpuscular Hemoglobin Concent 35 g/dL (31-37) Red Cell Distribution Width 14.2 % (11.5-14.5) Platelet Count 264 x10^3/uL (140-400) Neutrophils (%) (Auto) 56 % (31-73) Lymphocytes (%) (Auto) 21 % (24-48) L Monocytes (%) (Auto) 13 % (0-9) H Eosinophils (%) (Auto) 8 % (0-3) H Basophils (%) (Auto) 2 % (0-3) Neutrophils # (Auto) 4.0 x10^3uL (1.8-7.7) Lymphocytes # (Auto) 1.5 x10^3/uL (1.0-4.8) Monocytes # (Auto) 0.9 x10^3/uL (0.0-1.1) Eosinophils # (Auto) 0.6 x10^3/uL (0.0-0.7) Basophils # (Auto) 0.1 x10^3/uL (0.0-0.2) Sodium Level 140 mmol/L (136-145) Potassium Level 4.2 mmol/L (3.5-5.1) Chloride Level 106 mmol/L (98-107) Carbon Dioxide Level 29 mmol/L (21-32) Anion Gap 5 (6-14) L Blood Urea Nitrogen 18 mg/dL (8-26) Creatinine 1.1 mg/dL (0.7-1.3) Estimated GFR (Cockcroft-Gault) 67.2 BUN/Creatinine Ratio 16 (6-20) Glucose Level 98 mg/dL (70-99) Calcium Level 9.1 mg/dL (8.5-10.1) Total Bilirubin 0.3 mg/dL (0.2-1.0) Aspartate Amino Transferase (AST) 12 U/L (15-37) L Alanine Aminotransferase (ALT) 17 U/L (16-63) Alkaline Phosphatase 66 U/L (46-116) Total Protein 6.3 g/dL (6.4-8.2) L Albumin 2.6 g/dL (3.4-5.0) L Albumin/Globulin Ratio 0.7 (1.0-1.7) L Glucose (Fingerstick) 102 mg/dL (70-99) H Current Medications: Meds: Current Medications Acetaminophen (Tylenol) 650 mg PRN Q6HRS PRN PO PAIN / TEMP Last administered on 01/14/17 03:20; Start 12/28/16 at 15:00 Multi-Ingredient Ointment (Analgesic [place]) 1 tessy PRN QID PRN TP MUSCLE PAIN; Start 12/28/16 at 15:00 Al Hydroxide/Mg Hydroxide (Mylanta Plus Xs) 15 ml PRN AFTMEALHC PRN PO DYSPEPSIA; Start 12/28/16 at 15:00 Magnesium Hydroxide (Milk Of Magnesia) 2,400 mg PRN QHS PRN PO CONSTIPATION; Start 12/28/16 at 15:00 Nicotine (Nicoderm Cq 21mg) 1 patch DAILY TD Last administered on 01/15/17 07: 37; Start 12/28/16 at 16:00; Stop 01/15/17 at 07:45; Status DC Aspirin (Ebenezer Aspirin) 325 mg PRN DAILY PRN PO PAIN; Start 12/28/16 at 18:30 Folic Acid (Folic Acid) 1 mg DAILY PO Last administered on 01/26/17 08:56; Start 12/29/16 at 09:00 Hydralazine HCl (Apresoline) 25 mg PRN Q6HRS PRN PO hypertension; Start at 18:15 Olanzapine (ZyPREXA) 2.5 mg TID PO Last administered on 01/22/17 07:41; Start 12/28/16 at 21:00; Stop 01/22/17 at 12:20; Status DC Olanzapine (ZyPREXA) 5 mg PRN Q8HRS PRN PO ANXIETY / AGITATION Last administered on 01/11/17 17:05; Start 12/28/16 at 18:15 Thiamine HCl (Vitamin B-1) 100 mg DAILY PO Last administered on 01/26/17 08:56 ; Start 12/29/16 at 09:00 Divalproex Sodium (Depakote Sprinkles) 125 mg BID@0900,1400 PO Last administered on 01/02/17 13:38; Start 12/29/16 at 09:00; Stop 01/02/17 at 16:48 ; Status DC Vitamin D (Vitamin D3) 50,000 unit WEEKLY PO Last administered on 01/20/17 08: 33; Start 12/30/16 at 09:00 Divalproex Sodium (Depakote Sprinkles) 250 mg BID@0900,1400 PO Last administered on 01/09/17 14:53; Start 01/03/17 at 09:00; Stop 01/09/17 at 18:16 ; Status DC Trazodone HCl (Desyrel) 50 mg QHS PO Last administered on 01/26/17 19:36; Start 01/02/17 at 21:00 Trazodone HCl (Desyrel) 50 mg QHS PRN PO INSOMNIA Last administered on 20:05; Start 01/02/17 at 16:45 Divalproex Sodium (Depakote Sprinkles) 375 mg BID@0900,1400 PO Last administered on 01/11/17 14:00; Start 01/10/17 at 09:00; Stop 01/11/17 at 18:30 ; Status DC Trazodone HCl (Desyrel) 12.5 mg TID@0900,1300,1700 PO Last administered on 01/26 17:07; Start 01/12/17 at 09:00 Mirtazapine (Remeron) 7.5 mg QHS PO Last administered on 01/26/17 19:35; Start 01/11/17 at 21:00 Risperidone (RisperDAL) 0.25 mg BID PO Last administered on 01/26/17 19:35; Start 01/12/17 at 21:00 Nicotine (Nicoderm Cq 14mg) 1 patch DAILY TD ; Start 01/24/17 at 09:00; Stop 04/30 at 09:00; Status DC Nicotine (Nicoderm Cq 7mg) 1 patch DAILY TD ; Start 02/07/17 at 09:00; Stop at 09:00; Status DC Nicotine (Nicoderm Cq 14mg) 1 patch DAILY TD Last administered on 01/22/17 07: 48; Start 01/16/17 at 09:00; Stop 01/22/17 at 09:01; Status DC Nicotine (Nicoderm Cq 7mg) 1 patch DAILY TD Last administered on 01/26/17 08: 57; Start 01/23/17 at 09:00; Stop 01/30/17 at 08:00 Prenat Multivit/ [place]/Iron/Folic Ac (Multivitamin ) 1 tab DAILY PO Last administered on 01/26/17 08:56; Start 01/18/17 at 09:00 Cyanocobalamin (Vitamin B-12) 250 mcg DAILY PO Last administered on 01/26/17 08:56; Start 01/18/17 at 09:00 Olanzapine (ZyPREXA) 2.5 mg BID92 PO Last administered on 01/26/17 13:37; Start 01/22/17 at 14:00 Active Scripts Active Reported Aspirin 325 Mg Tablet 325 Mg PO PRN DAILY PRN Thiamine Hcl 100 Mg Tablet 100 Mg PO DAILY Zyprexa (Olanzapine) 5 Mg Tablet 5 Mg PO PRN Q8HRS PRN Olanzapine 5 Mg Tablet 2.5 Mg PO TID Hydralazine Hcl 25 Mg Tablet 25 Mg PO PRN Q6HRS PRN Folic Acid 1 Mg Tablet 1 Mg PO DAILY Diagnosis: Problems: (1) Dementia associated with alcoholism (2) Anxiety disorder (3) Dementia associated with alcoholism with behavioral disturbance (4) Impulse control disorder (5) Wernicke-Korsakoff psychosis HEMAL PICKETT MD Jan 26, 2017 19:43
[2017-01-26] MEDS ORDERED: ACET325T9 PO (23:43)
[2017-01-26] MEDS ORDERED: CHOL500050 PO (23:44)
[2017-01-26] MEDS ORDERED: CYAN250T PO (23:45)
[2017-01-26] MEDS ORDERED: MAG355OR17 PO (23:47)
[2017-01-26] MEDS ORDERED: MAGN2400 PO (23:48)
[2017-01-26] MEDS ORDERED: METH29OI TP (23:49)
[2017-01-26] MEDS ORDERED: MIRT15TA3 PO (23:50)
[2017-01-26] MEDS ORDERED: NICO1PAT27 TD (23:51)
[2017-01-26] MEDS ORDERED: PNV1TABL25 PO (23:52)
[2017-01-26] MEDS ORDERED: RISP0.5T3 PO (23:55)
[2017-01-26] MEDS ORDERED: TRAZ50TA15 PO ×3 (23:56→23:57)
--- NOTE | 2017-01-27 02:24 | PN ---
DATE: 01/25/2017 PSYCHIATRIC PROGRESS NOTE This is a late entry for 01/25/2017, covers elements not covered in my initial note of 01/25/2017. SUBJECTIVE: I met with the patient the evening of 01/25/2017. Overall, the patient has been cooperative, remains confused and has significant confabulation, but is verbal, draw some of the other demented patients around him as he is able to engage in a conversation, even though it goes off topic. He is less intrusive. REVIEW OF SYSTEMS: No CV, , pulmonary, eye, ENT system symptoms on review. Reliability varies. As I met with him the evening of 01/25/2017, he still felt he had a full day's job earlier in the day. MENTAL STATUS EXAM: Oriented to himself. Insight, judgment, recent and remote memory, attention, concentration, fund of knowledge poor, consistent with his diagnosis mentioned in my initial note. PLAN: Continue current psychotropics. Reviewed drug interactions. Risk/benefit ratio favors no change at this time. Reviewed psychotropics in my initial note. MAN Tanya PICKETT MD DR: JUAN PABLO/anthony JOB#: [id number] / [id number]
[2017-01-27 05:38] VITALS: BP 107/72
[2017-01-27] MEDS: NICOTINE 7MG PATCH. TD SCH (09:18)
[2017-01-27] MEDS: traZODone 50 MG TABLET. PO SCH ×2 (09:18→13:36)
[2017-01-27] MEDS: PRENATAL MULTIVITAMIN TABLET. PO SCH (09:18)
[2017-01-27] MEDS: OLANZapine 2.5 MG TABLET PO SCH ×2 (09:18→13:36)
[2017-01-27] MEDS: CYANOCOBALAMIN (VITAMIN B-12) 250 MCG TABLET PO SCH (09:18)
[2017-01-27] MEDS: risperiDONE 0.25 MG TABLET. PO SCH (09:18)
[2017-01-27] MEDS: THIAMINE 100 MG TABLET. PO SCH (09:18)
[2017-01-27] MEDS: FOLIC ACID 1 MG TABLET PO SCH (09:18)
[2017-01-27] MEDS: CHOLECALCIFEROL (VITAMIN D3) 50,000 UNIT CAPSULE PO SCH (09:19)
--- NOTE | 2017-01-28 02:37 | PN ---
DATE: 01/26/2017 PSYCHIATRIC PROGRESS NOTE This late entry 01/26/2017 covers elements not covered in my initial note of 01/26/2017. I met with the patient evening of 01/26/2017. The patient was also staffed at a treatment team meeting with the entire team morning of 01/26/2017. During the treatment team meeting, discussed the patient's diagnosis, progress, placement options at length, appetite 100%, sleeping about 7 hours, cooperative, confuse, confabulates. REVIEW OF SYSTEMS: No CV, , pulmonary, eye, ENT system symptoms on review. Reliability poor. MENTAL STATUS EXAM: Oriented to himself, very verbal, pleasant, open with me, but quite disorganized. Insight, judgment, recent and remote memory, attention, concentration, fund of knowledge poor, consistent with his diagnosis mentioned in my initial note. PLAN: Continue current psychotropics, reviewed drug interactions, risk/benefit ratio favors no further change at this time. HEMAL PICKETT MD DR: JUAN PABLO/anthony JOB#: [id number] / [id number]
--- NOTE | 2017-01-28 08:26 | PDOC ---
Exam Faustino Demential Exam: Faustino Note: Please also refer to the separate dictated note~for this date of service dictated separately.~Patient seen individually. Discussed the patient with Nursing staff reviewed the chart.~Reviewed interim history and current functioning. Reviewed vital signs,~Labs/ Radiology~and current medications noted below. Continue current treatment with the changes noted in the dictated addendum note Assessment: Vital Signs: Vital Signs Date Time Temp Pulse Resp B/P (MAP) Pulse Ox O2 Delivery O2 Flow Rate FiO2 01/27/17 05:38 98.2 70 16 107/72 (84) 94 Room Air Current Medications: Meds: Current Medications Acetaminophen (Tylenol) 650 mg PRN Q6HRS PRN PO PAIN / TEMP Last administered on 01/14/17 03:20; Start 12/28/16 at 15:00; Stop 01/27/17 at 15:52; Status DC Multi-Ingredient Ointment (Analgesic [place]) 1 oscar PRN QID PRN TP MUSCLE PAIN; Start 12/28/16 at 15:00; Stop 01/27/17 at 15:52; Status DC Al Hydroxide/Mg Hydroxide (Mylanta Plus Xs) 15 ml PRN AFTMEALHC PRN PO DYSPEPSIA; Start 12/28/16 at 15:00; Stop 01/27/17 at 15:52; Status DC Magnesium Hydroxide (Milk Of Magnesia) 2,400 mg PRN QHS PRN PO CONSTIPATION; Start 12/28/16 at 15:00; Stop 01/27/17 at 15:52; Status DC Nicotine (Nicoderm Cq 21mg) 1 patch DAILY TD Last administered on 01/15/17 07: 37; Start 12/28/16 at 16:00; Stop 01/15/17 at 07:45; Status DC Aspirin (Ebenezer Aspirin) 325 mg PRN DAILY PRN PO PAIN; Start 12/28/16 at 18:30; Stop 01/27/17 at 15:52; Status DC Folic Acid (Folic Acid) 1 mg DAILY PO Last administered on 01/27/17 09:18; Start 12/29/16 at 09:00; Stop 01/27/17 at 15:52; Status DC Hydralazine HCl (Apresoline) 25 mg PRN Q6HRS PRN PO hypertension; Start at 18:15; Stop 01/27/17 at 15:52; Status DC Olanzapine (ZyPREXA) 2.5 mg TID PO Last administered on 01/22/17 07:41; Start 12/28/16 at 21:00; Stop 01/22/17 at 12:20; Status DC Olanzapine (ZyPREXA) 5 mg PRN Q8HRS PRN PO ANXIETY / AGITATION Last administered on 01/11/17 17:05; Start 12/28/16 at 18:15; Stop 01/27/17 at 15:52 ; Status DC Thiamine HCl (Vitamin B-1) 100 mg DAILY PO Last administered on 01/27/17 09:18 ; Start 12/29/16 at 09:00; Stop 01/27/17 at 15:52; Status DC Divalproex Sodium (Depakote Sprinkles) 125 mg BID@0900,1400 PO Last administered on 01/02/17 13:38; Start 12/29/16 at 09:00; Stop 01/02/17 at 16:48 ; Status DC Vitamin D (Vitamin D3) 50,000 unit WEEKLY PO Last administered on 01/27/17 09: 19; Start 12/30/16 at 09:00; Stop 01/27/17 at 15:52; Status DC Divalproex Sodium (Depakote Sprinkles) 250 mg BID@0900,1400 PO Last administered on 01/09/17 14:53; Start 01/03/17 at 09:00; Stop 01/09/17 at 18:16 ; Status DC Trazodone HCl (Desyrel) 50 mg QHS PO Last administered on 01/26/17 19:36; Start 01/02/17 at 21:00; Stop 01/27/17 at 15:52; Status DC Trazodone HCl (Desyrel) 50 mg QHS PRN PO INSOMNIA Last administered on 20:05; Start 01/02/17 at 16:45; Stop 01/27/17 at 15:52; Status DC Divalproex Sodium (Depakote Sprinkles) 375 mg BID@0900,1400 PO Last administered on 01/11/17 14:00; Start 01/10/17 at 09:00; Stop 01/11/17 at 18:30 ; Status DC Trazodone HCl (Desyrel) 12.5 mg TID@0900,1300,1700 PO Last administered on 01/27 13:36; Start 01/12/17 at 09:00; Stop 01/27/17 at 15:52; Status DC Mirtazapine (Remeron) 7.5 mg QHS PO Last administered on 01/26/17 19:35; Start 01/11/17 at 21:00; Stop 01/27/17 at 15:52; Status DC Risperidone (RisperDAL) 0.25 mg BID PO Last administered on 01/27/17 09:18; Start 01/12/17 at 21:00; Stop 01/27/17 at 15:52; Status DC Nicotine (Nicoderm Cq 14mg) 1 patch DAILY TD ; Start 01/24/17 at 09:00; Stop 04/30 at 09:00; Status DC Nicotine (Nicoderm Cq 7mg) 1 patch DAILY TD ; Start 02/07/17 at 09:00; Stop at 09:00; Status DC Nicotine (Nicoderm Cq 14mg) 1 patch DAILY TD Last administered on 01/22/17 07: 48; Start 01/16/17 at 09:00; Stop 01/22/17 at 09:01; Status DC Nicotine (Nicoderm Cq 7mg) 1 patch DAILY TD Last administered on 01/27/17 09: 18; Start 01/23/17 at 09:00; Stop 01/27/17 at 15:52; Status DC Prenat Multivit/ Hall/Iron/Folic Ac (Multivitamin ) 1 tab DAILY PO Last administered on 01/27/17 09:18; Start 01/18/17 at 09:00; Stop 01/27/17 at 15:52; Status DC Cyanocobalamin (Vitamin B-12) 250 mcg DAILY PO Last administered on 01/27/17 09:18; Start 01/18/17 at 09:00; Stop 01/27/17 at 15:52; Status DC Olanzapine (ZyPREXA) 2.5 mg BID92 PO Last administered on 01/27/17 13:36; Start 01/22/17 at 14:00; Stop 01/27/17 at 15:52; Status DC Active Scripts Active Reported Trazodone Hcl 50 Mg Tablet 12.5 Mg PO TID@0900, 1300, 1700 Trazodone Hcl 50 Mg Tablet 50 Mg PO PRN QHS PRN Trazodone Hcl 50 Mg Tablet 50 Mg PO HS Risperidone 0.5 Mg Tablet 0.25 Mg PO BID Tablet (Pnv Cmb#95/Ferrous Fumarate/Fa) 1 Each Tablet 1 Tab PO DAILY NICODERM CQ 7mg (Nicotine) 1 Each Patch.td24 1 Patch TD DAILY Mirtazapine 15 Mg Tablet 7.5 Mg PO HS Analgesic [place] (Methyl Salicylate/Menthol) 28 Gm Oint...g. 1 Oscar TP PRN Milk Of Magnesia (Magnesium Hydroxide) 2,400 Mg/10 Ml Oral.susp 2,400 Mg PO PRN QHS PRN Advanced Antacid Liquid (Mag Hydrox/Al Hydrox/Simeth) 355 Ml Oral.susp 15 Ml PO PRN AFTMEALHC PRN Vitamin B-12 (Cyanocobalamin (Vitamin B-12)) 250 Mcg Tablet 250 Mcg PO DAILY Vitamin D3 (Cholecalciferol (Vitamin D3)) 50,000 Unit Capsule 50,000 Unit PO WEEKLY Tylenol (Acetaminophen) 325 Mg Tablet 650 Mg PO PRN Q6HRS PRN Aspirin 325 Mg Tablet 325 Mg PO PRN DAILY PRN Thiamine Hcl 100 Mg Tablet 100 Mg PO DAILY Zyprexa (Olanzapine) 5 Mg Tablet 5 Mg PO PRN Q8HRS PRN Olanzapine 5 Mg Tablet 2.5 Mg PO BID92 Hydralazine Hcl 25 Mg Tablet 25 Mg PO PRN Q6HRS PRN Folic Acid 1 Mg Tablet 1 Mg PO DAILY Diagnosis: Problems: (1) Wernicke-Korsakoff psychosis (2) Impulse control disorder (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
--- NOTE | 2017-01-28 18:59 | DS ---
DATE OF DISCHARGE: 01/27/2017 DISCHARGE SUMMARY/PSYCHIATRIC PROGRESS NOTE This is a late entry for 01/27/2017 and covers elements not covered in my initial note of 01/27/2017. REASON FOR ADMISSION: Please refer to the admission history for details. Briefly, the patient is a 66-year-old male who presented from home via the Emergency Room at [facility] on account of worsening confusion consequent to alcohol and Wernicke-Korsakoff syndrome. The patient was extremely confused, agitated, aggressive, hallucinating, swinging at staff at [facility], unmanageable in the home. He failed outpatient psychiatric interventions. Behaviors were deemed dangerous and he was referred for inpatient psychiatric stabilization. SIGNIFICANT FINDINGS AND CLINICAL COURSE: Following admission, the patient was seen daily individually by myself, followed medically per Dr. Amato/Dr. Hill. He was extremely confused, confabulating with significant mood lability and agitation, difficult to redirect. Adjustments were made in his psychotropics and he seemed to respond to a combination of Zyprexa 2.5 mg twice a day plus p.r.n., trazodone 12.5 mg 3 times a day scheduled for his anxiety, agitation and mood lability. Trazodone scheduled 50 mg at bedtime plus 50 mg at bedtime p.r.n. insomnia, Remeron 7.5 mg at bedtime, Risperdal 0.25 mg b.i.d. We had considered naltrexone to help with alcohol craving post-discharge, but this was not felt necessary as he is going to a structured placement, where he would not have access to alcohol. Valproic acid level on 01/12/2017 was 40, clinically adequate even though it was slightly subtherapeutic. Prior to discharge, condition was improved. REVIEW OF SYSTEMS: No CV, , pulmonary, eye, ENT system symptoms. MENTAL STATUS EXAM: Oriented to himself. Insight, judgment, recent and remote memory, attention, concentration, fund of knowledge poor, consistent with his diagnosis. 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 Rest diagnoses unchanged. DISCHARGE MEDICATIONS: Please refer to the MRAD. At discharge, the patient was on 2 atypical antipsychotics and once he is stable for 30 days at the senior living, attempts should be made to reduce the Zyprexa from 2.5 mg b.i.d. to 2.5 mg once a day for 1 month and then discontinue it while continuing the Risperdal. DISCHARGE INSTRUCTIONS: Outpatient psychiatric and medical followup at the senior living. Time for discharge day management greater than 30 minutes. HEMAL PICKETT MD DR: JUAN PABLO/anthony JOB#: [id number] / [id number]
[2017-02-07] MEDS ORDERED: NICOTINE 7MG PATCH. TD SCH (09:00)
== END 2017-01-27 14:45 | DRG 896 ==
LOC: GEROPSY 14:32
PROVIDERS: ADMIT Psychiatry & Neurology Psychiatry; ATTEND Psychiatry & Neurology Psychiatry
DX: F10.27 Alcohol dependence with alcohol-induced persisting dementia (principal); E43 Unspecified severe protein-calorie malnutrition; F31.60 Bipolar disorder, current episode mixed, unspecified; F04 Amnestic disorder due to known physiological condition; F01.50 Vascular dementia, unspecified severity, without behavioral disturbance, psychotic disturbance, mood disturbance, and anxiety; F10.250 Alcohol dependence with alcohol-induced psychotic disorder with delusions; E11.9 Type 2 diabetes mellitus without complications; F63.9 Impulse disorder, unspecified; F41.9 Anxiety disorder, unspecified; Z87.891 Personal history of nicotine dependence; Z68.21 Body mass index [BMI] 21.0-21.9, adult
CPT/HCPCS: 36415; 80053; 80061; 80164; 82140; 82306; 82607; 82947; 83036; 83540; 83550; 83735; 84436; 84443; 84480; 85025; 85610; 86592; 86593; 93005; 99407; 97110; 97116; 97530; 97535